=== PATIENT | female | born 1980 | race African-American/Black ===

== ENCOUNTER 2016-12-19 17:22 | Emergency (ER) | payer OTHER ==
[~2016-12-19 17:22] MED LIST: AMIT24CA5 PO; SERT25TA85 PO; TRAZ50TA4 PO
[2016-12-19] MEDS ORDERED: GASTROGRAFIN SOLUTION 30ML (Q9963) As Ordered ONE (18:26)
[2016-12-19] MEDS ORDERED: ONDANSETRON 4MG/2ML VIAL (J2405) As Ordered ONE ×2 (18:36→21:09)
[2016-12-19] MEDS ORDERED: MORPHINE 4 MG/ML 1ML SYRINGE As Ordered ONE ×2 (18:36→19:54)
[2016-12-19 18:58] LABS: BASO % 0.5 % (0.0-1.0); EOS # 0.1 K/mm3 (0.0-0.50); EOS % 1.3 % (0.0-3.0); LARGE UNSTAINED CELL # 0.1 K/mm3 (0.0-0.4); LARGE UNSTAINED CELL % 1.7 % (0.0-4.0); LYMPH # 2.9 K/mm3 (1.5-4.5); LYMPH % 40.6 % (24.0-44.0); MEAN CORPUSCULAR HGB CONC 30.9 g/dl (32.0-36.5); MEAN CORPUSCULAR VOLUME 84.1 fl (80.0-96.0); MONO # 0.3 K/mm3 (0.0-0.8); MONO % 4.4 % (0.0-5.0); NEUTROPHILS # 3.7 K/mm3 (1.8-7.7); NEUTROPHILS % 51.5 % (36.0-66.0); PLATELET COUNT, AUTOMATED 253 k/mm3 (150-450); RED CELL DISTRIBUTION WIDTH 13.9 % (11.5-14.5); WHITE BLOOD COUNT 7.2 K/mm3 (4.0-10.0)
[2016-12-19 19:02] LABS: CALCIUM OXALATE CRYSTALS LARGE
[2016-12-19] MEDS ORDERED: ISOVUE-370 76% 100ML VIAL (Q9967) As Ordered ONE ×2 (19:04→21:07)
[2016-12-19 19:58] LABS: ALBUMIN 3.3 GM/DL (3.2-5.2); ALBUMIN/GLOBULIN RATIO 0.72 (1.00-1.93); ALKALINE PHOSPHATASE 87 U/L (45-117); ALT/SGPT 30 U/L (12-78); ANION GAP 10 MEQ/L (8-16); AST/SGOT 44 U/L (15-37); BILIRUBIN,DIRECT 0.2 MG/DL (0.0-0.2); BILIRUBIN,TOTAL 0.4 MG/DL (0.2-1.0); BLOOD UREA NITROGEN 9 MG/DL (7-18); CALCIUM LEVEL 8.7 MG/DL (8.5-10.1); CARBON DIOXIDE LEVEL 24 MEQ/L (21-32); CHLORIDE LEVEL 107 MEQ/L (98-107); CREATININE FOR GFR 0.58 MG/DL (0.55-1.02); GLOMERULAR FILTRATION RATE > 60.0 (>60); GLUCOSE, FASTING 77 MG/DL (70-105); POTASSIUM SERUM 3.8 MEQ/L (3.5-5.1); SODIUM LEVEL 141 MEQ/L (136-145); TOTAL PROTEIN 7.9 GM/DL (6.4-8.2)
--- NOTE | 2016-12-19 22:40 | REPUSA ---
CLINICAL HISTORY: Status post gastric bypass an abscess, presenting with abdominal pain TECHNIQUE : A CT of the abdomen and pelvis was performed following the administration of oral and int ravenous contrast from the level of the heart to the proximal femoral diaphyses. Multiplanar reformat s were also obtained in coronal and sagittal projections. COMPARISON: CT abdomen pelvis 10/03/2014 FINDINGS: LOWER CHEST: The lung bases demonstrate trace bilateral effusions with lower lobe atelectasis and lef t lung base more atelectasis/consolidation. Heart is normal in size. No pleural or pericardial effusi on is seen. LIVER: The liver is normal in size and contour. No hepatic lesion is seen. The portal and hepatic vei ns are patent. BILIARY SYSTEM: No intrahepatic biliary ductal dilatation is seen. The common duct is normal in calib er. The gallbladder is unremarkable with no focal or diffuse wall thickening seen. No pericholecystic fluid is seen. No calcified biliary calculi are identified. PANCREAS: The pancreas is normal in size, contour and density. No solid or cystic pancreatic mass is seen. No pancreatic duct dilatation is seen. SPLEEN: The spleen is normal in size and without focal lesion. ADRENALS: The adrenal glands are unremarkable. KIDNEYS/URETERS: The kidneys are normal in size and enhance normally. No calcified renal or ureteral calculi are seen. No suspicious renal mass or hydronephrosis is seen. The ureters are not dilated. URINARY BLADDER: The urinary bladder is unremarkable without calcified stone, wall thickening or dive rticula seen. UTERUS/ADNEXA: Uterus is absent. Bilateral adnexa. Within normal limits with corpus luteal cyst on le ft AORTA AND ILIAC ARTERIES: No aneurysmal dilatation of the aorta or iliac arteries is seen. INFERIOR VENA CAVA AND PELVIC VEINS: No deep venous thrombosis is seen. LYMPH NODES: No enlarged adenopathy. GASTROINTESTINAL: Status post gastric bypass otherwise residual stomach, duodenum, appendix on axial series 201, images 95-103, and remaining bowel normal in caliber. PERITONEUM/RETROPERITONEUM: Trace perisplenic and perihepatic ascites. No extraluminal air. A 3.9 x 2 .6 cm left lower quadrant mixed solid and cystic lobulated structure has slightly grown from 2.8 x 2. 4. ABDOMINAL/PELVIC WALL: No hernia is identified. OSSEOUS STRUCTURES/SOFT TISSUES: No suspicious osseous lesion, acute fracture, or soft tissue abnorma lity. IMPRESSION : 1. Trace ascites noted which is likely postoperative otherwise no acute intra-abdominal pelvic inflam matory process is identified. Specifically no definitive evidence of abscess. 2. A 3.9 x 2.6 cm left lower quadrant lobulated mixed solid and cystic structure has slightly increas ed from 2.8 x 2.4 cm. This may represent a remnant ovary however if there has been a definitive bilat eral salpingo-oophorectomy for a clinical history of cancer, then findings would raise suspicion for recurrent tumor. Correlation with surgical history is initially recommended.
--- NOTE | 2016-12-19 23:16 | EDDOCDS ---
Physician Documentation [facility] Name: Luigi Lund Age: 36 yrs Sex: Female : 1980 Arrival Date: 12/19/2016 Time: 17:22 Bed I6 Private MD: Reid Magana P. Disposition: 12/19/16 22:51 Discharged to Home/Self Care. Impression: Generalized abdominal pain. - Condition is Stable. - Discharge Instructions: Abdominal Pain, Adult, Nausea and Vomiting. - Prescriptions for Reglan 10 mg Oral Tablet - take 1 tablet by ORAL route every 6 hours take 30 minutes before meals and at bedtime; 20 tablet. Percocet 5- 325 mg Oral Tablet - take 1 tablet by ORAL route every 6 hours As needed MDD: 4 tabs; 20 tablet. - Medication Reconciliation, Local Pharmacy Hours form. - Follow up: Reid Magana; When: Call to arrange an appointment; Reason: Recheck today's complaints, Continuance of care. - Problem is new. - Symptoms are unchanged. Historical: - Allergies: Latex; - Home Meds: 1. Sertraline 100 mg daily 2. Omeprazole Unknown Oral once daily - PMHx: Anxiety; Migraine Headaches; - PSHx: Multiple laparoscopies for endometriosis; Hysterectomy; ; Gastric Bypass; - Social history: Smoking status: Patient states former smoker of tobacco. No barriers to communication noted, The patient speaks fluent [place], Speaks appropriately for age. - Family history: Not pertinent. - : The pt / caregiver states he / she is not on anticoagulants. Home medication list is obtained from the patient. - Exposure Risk Screening:: None identified. 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 6 in. (167.64 cm) (R); Pain 7/10; 23:01 BP 110 / 69; Pulse 77; Resp 18; Temp 97.6; Pulse Ox 97% ; Pain 7/10; ajs 17:24 Body Mass Index 35.51 (99.79 kg, 167.64 cm) gr2 MDM: 18:11 NS 0.9% 1000 ml IV at bolus once ordered. mo1 18:11 Ondansetron 4 mg IVP once ordered. mo1 18:11 IV Saline Lock ordered. mo1 18:11 Undress patient appropriately for examination ordered. mo1 18:11 morphine 4 mg IVP once ordered. mo1 18:12 Basic Metabolic Profile Ordered. EDMS 18:12 CBC with Diff Ordered. EDMS 18:12 Lipase Ordered. EDMS 18:12 Liver Profile Ordered. EDMS 18:12 Urinalysis Ordered. EDMS 18:12 Urine Culture Ordered. EDMS 18:12 CT ABD & PELVIS: IV and Oral Contrast Ordered. EDMS 18:12 NOTHING BY MOUTH+DIET ordered. EDMS 18:17 -Blood Culture (Adults Only), peripheral from different site, or from device/port/PICC mo1 etc. if present ordered. 18:18 -Blood Culture Ordered. EDMS 18:44 -Blood Culture (Adults Only), peripheral from different site, or from device/port/PICC jmk etc. if present complete. 18:48 BLOOD CULTURES Ordered. EDMS 18:54 Diatrizoate Meglumine & Sodium Liquid 10 ml PO once; mix in 290cc of water ordered. kc3 18:54 Diatrizoate Meglumine & Sodium Liquid 10 ml PO once; mix in 290cc of water - give at kc3 1900 ordered. 18:56 Financial registration complete. zo 19:01 [facility] Payment Agreement was scanned into [employer] and attached to record. zo 19:13 Urinalysis Reviewed. mo1 19:14 CBC with Diff Reviewed. mo1 19:50 morphine 4 mg IVP once ordered. mo1 21:07 Ondansetron 4 mg IVP once ordered. mo1 Administered Medications: 18:44 Drug: morphine 4 mg Route: IVP; Site: right antecubital; jmk 18:45 Drug: NS 0.9% 1000 ml Route: IV; Rate: bolus; Site: right antecubital; jmk 18:46 Drug: Ondansetron 4 mg Route: IVP; Site: right antecubital; jmk 18:54 Drug: Diatrizoate Meglumine & Sodium 10 ml [diatrizoate meglumine and diat.sodium 66 kc3 %-10 % oral solution (10 mL)] Route: PO; 19:58 Not Given (provider discretion; pt states that she cannot drink any more due to recent js15 gastric bypass surgery): Diatrizoate Meglumine & Sodium Liquid 10 ml PO once; mix in 290cc of water - give at 1900 19:58 Drug: morphine 4 mg [morphine 4 mg/mL intravenous cartridge (1 mL)] Route: IVP; Site: js15 right antecubital; 21:11 Drug: Ondansetron 4 mg [ondansetron HCl 2 mg/mL intravenous solution (2 mL)] Route: js15 IVP; Site: right antecubital; Signatures: Dispatcher [employer] EDFransisco Boateng,RN RN ellenk Kelsi ArnoldRN RN jo3 Elena Avila Michael, PA PA mo1 Mary Mcleod RN RN js15 Gladys Malik,RN RN kc3 The chart was reviewed and I authenticate all verbal orders and agree with the evaluation and treatment provided.Attachments: 19:01 [facility] [place] [place] Payment Agreement zo MTDD
--- NOTE | 2016-12-19 23:16 | EDDOCDS ---
Nurse's Notes [facility] Name: Luigi Lund Age: 36 yrs Sex: Female : 1980 Arrival Date: 12/19/2016 Time: 17:22 Bed I6 Private MD: Reid Magana P. Diagnosis: Generalized abdominal pain Presentation: 12/19 17:34 Presenting complaint: Patient states: Had Gastric Bypass 10/[address] Arreola in [place]. jo3 Had multiple complications after surgery including a large hematoma and abscesses. Was in the hospital until 11/23/16 and had drains removed last week. Started vomiting Saturday and is unable to keep anything down. Home Health nurse called dr Arreola's office and they wanted pt to be seen here. Adult Sepsis Screening: The patient does not have new or worsening altered mentation. Patient's respiratory rate is less than 22. Systolic blood pressure is greater than 100. Patient has a qSOFA score of 0- Negative Sepsis Screen. Suicide/Homicide risk assessment- the patient denies having any suicidal and/or homicidal ideations and does not present with any other emotional, behavioral or mental health complaints. Status: The patient is a dependent. Transition of care: patient was not received from another setting of care. 17:34 Acuity: TANA Level 3 jo3 17:34 Method Of Arrival: Walkin/Carried/Asstd jo3 Triage Assessment: 17:41 General: Appears in no apparent distress, comfortable, Behavior is appropriate for age, jo3 cooperative. Pain: Pain currently is 8 out of 10 on a pain scale. HIV screening NA for this visit Offered previously. Neurological: Level of Consciousness is awake, alert, Oriented to person, place, time. Respiratory: Airway is patent Respiratory effort is even, unlabored. Derm: No deficits noted. Skin is pink, warm & dry. 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 Sertraline 100 mg daily 2. Omeprazole Unknown Oral once daily - PMHx: Anxiety; Migraine Headaches; - PSHx: Multiple laparoscopies for endometriosis; Hysterectomy; ; Gastric Bypass; - Social history: Smoking status: Patient states former smoker of tobacco. No barriers to communication noted, The patient speaks fluent Luxembourgish, Speaks appropriately for age. - Family history: Not pertinent. - : The pt / caregiver states he / she is not on anticoagulants. Home medication list is obtained from the patient. - Exposure Risk Screening:: None identified. Screenin:46 Screening information is obtained from the patient. Fall risk: No risks identified. jmk Assistance ADL's: requires no assistance with activities of daily living. Abuse/DV Screen: The patient / caregiver reports he/she is: not in a situation that causes fear, pain or injury. Nutritional screening: No deficits noted. home support is adequate. 23:14 Advance Directives: There is no active DNR order. js15 Assessment: 18:46 General: Appears skin warm and dry color satisfactory Moist pink oral mucosa. ambulates jmk slowly and cautiously supporting lower abdomen. Obese abdomen that is non distended with bowel sounds present x 4. Diffusely tender with palpation. Multiple old surgical incisions. GI: Bowel sounds present X 4 quads. Abd is soft X 4 quads Abd is tender to palpation X 4 quads. 20:06 General: Appears in no apparent distress, Behavior is appropriate for age, cooperative, js15 watching TV with family at bedside. Neurological: Level of Consciousness is awake, alert, obeys commands, Oriented to person, place, time. Respiratory: Airway is patent Respiratory effort is even, unlabored, Respiratory pattern is regular, symmetrical. GI:. Derm: Skin is pink, warm & dry. 21:23 Reassessment: Patient appears in no apparent distress at this time. Pt returned from js15 CT; reports nausea; provider notified and no new orders given; respirations even and unlabored; skin pink, warm, dry; will continue to monitor. 23:00 Reassessment: Patient appears in no apparent distress at this time. Reassessment: Pt js15 resting on stretcher with family at bedside; respirations even and unlabored; skin pink, warm, dry. GI: Abdomen is obese, Reports nausea. Vital Signs: 17:24 BP 134 / 83; Pulse 108; Resp 18 S; Temp 98.0(O); Pulse Ox 98% on R/A; Weight 99.79 kg gr2 (R); Height 5 ft. 6 in. (167.64 cm) (R); Pain 7/10; 23:01 BP 110 / 69; Pulse 77; Resp 18; Temp 97.6; Pulse Ox 97% ; Pain 7/10; ajs 17:24 Body Mass Index 35.51 (99.79 kg, 167.64 cm) gr2 Vitals: 17:24 Log In Time: December 19, 2016 at 17:24. gr2 ED Course: 17:24 Patient visited by Cathy Baker. gr2 17:24 Reid Magana is Private Physician. gr2 17:24 Patient moved to Waiting gr2 17:25 Patient visited by Cathy Baker. gr2 17:25 Patient moved to Pre RCE gr2 17:39 Triage Initiated jo3 17:42 Patient visited by Kelsi Arnold,BRENNON. jo3 17:43 Patient moved to Triage 1 jo3 17:58 Haim Armando PA is PHCP. mo1 17:59 Yaya Flores MD is Attending Physician. mo1 18:10 Patient visited by Haim Armando PA. mo1 18:10 Patient moved to I6 / ck1 18:27 Patient visited by Christel Dinero PCA. bnb 18:44 -Blood Culture Sent. jmk 18:45 Basic Metabolic Profile Sent. jmk 18:45 CBC with Diff Sent. jmk 18:45 Lipase Sent. jmk 18:45 Liver Profile Sent. jmk 18:46 The patient / caregiver is instructed regarding the plan of care and ED course. jmk 18:46 Inserted saline lock: 20 gauge in right antecubital area. jmk 18:49 BLOOD CULTURES Sent. bnb 19:01 [facility] Payment Agreement was scanned into [employer] and attached to record. zo 19:57 Patient visited by Mary Mcleod RN. js15 21:07 Patient visited by Mary Mcleod,BRENNON. js15 22:51 Reid Magana is Referral Physician. mo1 23:14 No procedures done that require assistance. js15 Administered Medications: 18:44 Drug: morphine 4 mg Route: IVP; Site: right antecubital; jmk 18:45 Drug: NS 0.9% 1000 ml Route: IV; Rate: bolus; Site: right antecubital; jmk 18:46 Drug: Ondansetron 4 mg Route: IVP; Site: right antecubital; jmk 18:54 Drug: Diatrizoate Meglumine & Sodium 10 ml [diatrizoate meglumine and diat.sodium 66 kc3 %-10 % oral solution (10 mL)] Route: PO; 19:58 Not Given (provider discretion; pt states that she cannot drink any more due to recent js15 gastric bypass surgery): Diatrizoate Meglumine & Sodium Liquid 10 ml PO once; mix in 290cc of water - give at 1900 19:58 Drug: morphine 4 mg [morphine 4 mg/mL intravenous cartridge (1 mL)] Route: IVP; Site: js15 right antecubital; 21:11 Drug: Ondansetron 4 mg [ondansetron HCl 2 mg/mL intravenous solution (2 mL)] Route: js15 IVP; Site: right antecubital; Order Results: Lab Order: Basic Metabolic Profile; SPEC'M 12/19/16 19:27 Test: GLUCOSE, FASTING; Value: 77; Range: 70-105; Units: MG/DL; Status: F Test: BLOOD UREA NITROGEN; Value: 9; Range: 7-18; Units: MG/DL; Status: F Test: CREATININE FOR GFR; Value: 0.58; Range: 0.55-1.02; Units: MG/DL; Status: F Test: GLOMERULAR FILTRATION RATE; Value: > 60.0; Range: >60; Status: F Test: SODIUM LEVEL; Value: 141; Range: 136-145; Units: MEQ/L; Status: F Test: POTASSIUM SERUM; Value: 3.8; Range: 3.5-5.1; Units: MEQ/L; Status: F Test: CHLORIDE LEVEL; Value: 107; Range: 98-107; Units: MEQ/L; Status: F Test: CARBON DIOXIDE LEVEL; Value: 24; Range: 21-32; Units: MEQ/L; Status: F Test: ANION GAP; Value: 10; Range: 8-16; Units: MEQ/L; Status: F Test: CALCIUM LEVEL; Value: 8.7; Range: 8.5-10.1; Units: MG/DL; Status: F Test Note: ; Units are mL/min/1.73 m2 Chronic Kidney Disease Staging per NKF: Stage I & II GFR >=60 Normal to Mildly Decreased Stage III GFR 30-59 Moderately Decreased Stage IV GFR 15-29 Severely Decreased Stage V GFR <15 Very Little GFR Left ESRD GFR <15 on B[address] BRANDER Lab Order: CBC with Diff; SPEC'M 12/19/16 18:27 Test: WHITE BLOOD COUNT; Value: 7.2; Range: 4.0-10.0; Units: K/mm3; Status: F Test: RED BLOOD COUNT; Value: 5.02; Range: 4.00-5.40; Units: M/mm3; Status: F Test: HEMOGLOBIN; Value: 13.0; Range: 12.0-16.0; Units: g/dl; Status: F Test: HEMATOCRIT; Value: 42.2; Range: 36.0-47.0; Units: %; Status: F Test: MEAN CORPUSCULAR VOLUME; Value: 84.1; Range: 80.0-96.0; Units: fl; Status: F Test: MEAN CORPUSCULAR HEMOGLOBIN; Value: 26.0; Range: 27.0-33.0; Abnormal: Below low normal; Units: pg; Status: F Test: MEAN CORPUSCULAR HGB CONC; Value: 30.9; Range: 32.0-36.5; Abnormal: Below low normal; Units: g/dl; Status: F Test: RED CELL DISTRIBUTION WIDTH; Value: 13.9; Range: 11.5-14.5; Units: %; Status: F Test: PLATELET COUNT, AUTOMATED; Value: 253; Range: 150-450; Units: k/mm3; Status: F Test: NEUTROPHILS %; Value: 51.5; Range: 36.0-66.0; Units: %; Status: F Test: LYMPH %; Value: 40.6; Range: 24.0-44.0; Units: %; Status: F Test: MONO %; Value: 4.4; Range: 0.0-5.0; Units: %; Status: F Test: EOS %; Value: 1.3; Range: 0.0-3.0; Units: %; Status: F Test: BASO %; Value: 0.5; Range: 0.0-1.0; Units: %; Status: F Test: LARGE UNSTAINED CELL %; Value: 1.7; Range: 0.0-4.0; Units: %; Status: F Test: NEUTROPHILS #; Value: 3.7; Range: 1.8-7.7; Units: K/mm3; Status: F Test: LYMPH #; Value: 2.9; Range: 1.5-4.5; Units: K/mm3; Status: F Test: MONO #; Value: 0.3; Range: 0.0-0.8; Units: K/mm3; Status: F Test: EOS #; Value: 0.1; Range: 0.0-0.50; Units: K/mm3; Status: F Test: BASO #; Value: 0.0; Range: 0.0-0.2; Units: K/mm3; Status: F Test: LARGE UNSTAINED CELL #; Value: 0.1; Range: 0.0-0.4; Units: K/mm3; Status: F Lab Order: Lipase; [facility] 12/19/16 19:27 Test: LIPASE; Value: 310; Range: 73-393; Units: U/L; Status: F Lab Order: Liver Profile; [facility] 12/19/16 19:27 Test: AST/SGOT; Value: 44; Range: 15-37; Abnormal: Above high normal; Units: U/L; Status: F Test: ALT/SGPT; Value: 30; Range: 12-78; Units: U/L; Status: F Test: ALKALINE PHOSPHATASE; Value: 87; Range: 45-117; Units: U/L; Status: F Test: BILIRUBIN,TOTAL; Value: 0.4; Range: 0.2-1.0; Units: MG/DL; Status: F Test: BILIRUBIN,DIRECT; Value: 0.2; Range: 0.0-0.2; Units: MG/DL; Status: F Test: TOTAL PROTEIN; Value: 7.9; Range: 6.4-8.2; Units: GM/DL; Status: F Test: ALBUMIN; Value: 3.3; Range: 3.2-5.2; Units: GM/DL; Status: F Test: ALBUMIN/GLOBULIN RATIO; Value: 0.72; Range: 1.00-1.93; Abnormal: Below low normal; Status: F Lab Order: Urinalysis; [facility] 12/19/16 18:27 Test: APPEARANCE, URINE; Value: CLOUDY; Range: CLEAR; Abnormal: Above high normal; Status: F Test: COLOR, URINE; Value: SKY; Range: YELLOW; Status: F Test: PH,URINE; Value: 7.0; Range: 5.0-9.0; Units: UNITS; Status: F Test: SPECIFIC GRAVITY URINE AUTO; Value: 1.025; Range: 1.002-1.035; Status: F Test: PROTEIN, URINE AUTO; Value: 1+; Range: NEGATIVE; Abnormal: Above high normal; Units: mg/dL; Status: F Test: GLUCOSE, URINE (UA) AUTO; Value: NEGATIVE; Range: NEGATIVE; Units: mg/dL; Status: F Test: KETONE, URINE AUTO; Value: 1+; Range: NEGATIVE; Abnormal: Above high normal; Units: mg/dL; Status: F Test: UROBILINOGEN, URINE AUTO; Value: 2.0; Range: 0.0-2.0; Abnormal: Above high normal; Units: mg/dL; Status: F Test: BILIRUBIN, URINE AUTO; Value: NEGATIVE; Range: NEGATIVE; Status: F Test: NITRITE, URINE AUTO; Value: NEGATIVE; Range: NEGATIVE; Status: F Test: LEUKOCYTE ESTERASE, URINE AUTO; Value: 3+; Range: NEGATIVE; Abnormal: Above high normal; Status: F Test: BLOOD, URINE BLOOD; Value: NEGATIVE; Range: NEGATIVE; Status: F Test: WBC, URINE AUTO; Value: 8; Range: 0-3; Abnormal: Above high normal; Units: /HPF; Status: F Test: RBC, URINE AUTO; Value: 7; Range: 0-3; Abnormal: Above high normal; Units: /HPF; Status: F Test: BACTERIA, URINE AUTO; Value: NEGATIVE; Range: NEGATIVE; Status: F Test: SQUAMOUS EPITHELIAL CELL UR AU; Value: 37; Range: 0-6; Units: /HPF; Status: F Test: MUCUS, URINE; Value: SMALL; Range: NEGATIVE; Status: F Test: HYALINE CAST, URINE AUTO; Value: 0; Range: 0-1; Units: /LPF; Status: F Test: AMORPHOUS SEDIMENT; Value: SMALL; Range: NEGATIVE; Abnormal: Above high normal; Status: F Test: CALCIUM OXALATE CRYSTALS; Value: LARGE; Range: NONE; Status: F Outcome: 22:51 Discharge ordered by Provider. mo1 23:14 Discharge Assessment: Patient awake, alert and oriented x 3. No cognitive and/or js15 functional deficits noted. Patient verbalized understanding of disposition instructions. patient administered narcotics - yes. Pt provided with safe discharge. The following High Risk Discharge criteria are identified: None. Discharged to home ambulatory. Condition: unchanged. Discharge instructions given to patient, Instructed on discharge instructions, follow up and referral plans. medication usage, no driving heavy equipment, Demonstrated understanding of instructions, medications, Pt was receptive of discharge instructions/ teaching. Prescriptions given X 2. CT Study completed. Property sent home with patient. 23:15 Patient left the ED. js15 Signatures: Fransisco Weir,RN RN ellenk Lynda Hyman,RN RN ck1 Kelsi Arnold,RN RN jo3 Elena Avila Amanda ajs Raymond, [place] gr2 Haim Armando PA PA mo1 Mary Mcleod,RN RN js15 Gladys Malik,RN RN kc3 Christel Dinero, VP SOFTWARE SUPPORT VP SOFTWARE SUPPORT bnb MTDD
--- NOTE | 2016-12-22 00:16 | EDDOCDS ---
Nurse's Notes [facility] Name: Luigi Lund Age: 36 yrs Sex: Female : 1980 Arrival Date: 12/19/2016 Time: 17:22 Bed I6 Private MD: Reid Magana P. Diagnosis: Generalized abdominal pain Presentation: 12/19 17:34 Presenting complaint: Patient states: Had Gastric Bypass 10/[address] Arreola in [place]. jo3 Had multiple complications after surgery including a large hematoma and abscesses. Was in the hospital until 11/23/16 and had drains removed last week. Started vomiting Saturday and is unable to keep anything down. Home Health nurse called dr Arreola's office and they wanted pt to be seen here. Adult Sepsis Screening: The patient does not have new or worsening altered mentation. Patient's respiratory rate is less than 22. Systolic blood pressure is greater than 100. Patient has a qSOFA score of 0- Negative Sepsis Screen. Suicide/Homicide risk assessment- the patient denies having any suicidal and/or homicidal ideations and does not present with any other emotional, behavioral or mental health complaints. Status: The patient is a dependent. Transition of care: patient was not received from another setting of care. 17:34 Acuity: TANA Level 3 jo3 17:34 Method Of Arrival: Walkin/Carried/Asstd jo3 Triage Assessment: 17:41 General: Appears in no apparent distress, comfortable, Behavior is appropriate for age, jo3 cooperative. Pain: Pain currently is 8 out of 10 on a pain scale. HIV screening NA for this visit Offered previously. Neurological: Level of Consciousness is awake, alert, Oriented to person, place, time. Respiratory: Airway is patent Respiratory effort is even, unlabored. Derm: No deficits noted. Skin is pink, warm & dry. MOHEL: 17:41 LMP N/A - Hysterectomy jo3 Historical: - Allergies: Latex; - Home Meds: 1. Sertraline 100 mg daily 2. Omeprazole Unknown Oral once daily - PMHx: Anxiety; Migraine Headaches; - PSHx: Multiple laparoscopies for endometriosis; Hysterectomy; ; Gastric Bypass; - Social history: Smoking status: Patient states former smoker of tobacco. No barriers to communication noted, The patient speaks fluent German, Speaks appropriately for age. - Family history: Not pertinent. - : The pt / caregiver states he / she is not on anticoagulants. Home medication list is obtained from the patient. - Exposure Risk Screening:: None identified. Screenin:46 Screening information is obtained from the patient. Fall risk: No risks identified. jmk Assistance ADL's: requires no assistance with activities of daily living. Abuse/DV Screen: The patient / caregiver reports he/she is: not in a situation that causes fear, pain or injury. Nutritional screening: No deficits noted. home support is adequate. 23:14 Advance Directives: There is no active DNR order. js15 Assessment: 18:46 General: Appears skin warm and dry color satisfactory Moist pink oral mucosa. ambulates jmk slowly and cautiously supporting lower abdomen. Obese abdomen that is non distended with bowel sounds present x 4. Diffusely tender with palpation. Multiple old surgical incisions. GI: Bowel sounds present X 4 quads. Abd is soft X 4 quads Abd is tender to palpation X 4 quads. 20:06 General: Appears in no apparent distress, Behavior is appropriate for age, cooperative, js15 watching TV with family at bedside. Neurological: Level of Consciousness is awake, alert, obeys commands, Oriented to person, place, time. Respiratory: Airway is patent Respiratory effort is even, unlabored, Respiratory pattern is regular, symmetrical. GI:. Derm: Skin is pink, warm & dry. 21:23 Reassessment: Patient appears in no apparent distress at this time. Pt returned from js15 CT; reports nausea; provider notified and no new orders given; respirations even and unlabored; skin pink, warm, dry; will continue to monitor. 23:00 Reassessment: Patient appears in no apparent distress at this time. Reassessment: Pt js15 resting on stretcher with family at bedside; respirations even and unlabored; skin pink, warm, dry. GI: Abdomen is obese, Reports nausea. Vital Signs: 17:24 BP 134 / 83; Pulse 108; Resp 18 S; Temp 98.0(O); Pulse Ox 98% on R/A; Weight 99.79 kg gr2 (R); Height 5 ft. 6 in. (167.64 cm) (R); Pain 7/10; 23:01 BP 110 / 69; Pulse 77; Resp 18; Temp 97.6; Pulse Ox 97% ; Pain 7/10; ajs 17:24 Body Mass Index 35.51 (99.79 kg, 167.64 cm) gr2 Vitals: 17:24 Log In Time: December 19, 2016 at 17:24. gr2 ED Course: 17:24 Patient visited by Cathy Baker. gr2 17:24 Reid Magana is Private Physician. gr2 17:24 Patient moved to Waiting gr2 17:25 Patient visited by Cathy Baker. gr2 17:25 Patient moved to Pre RCE gr2 17:39 Triage Initiated jo3 17:42 Patient visited by Kelsi Arnold,BRENNON. jo3 17:43 Patient moved to Triage 1 jo3 17:58 Haim Armando PA is PHCP. mo1 17:59 Yaya Flores MD is Attending Physician. mo1 18:10 Patient visited by aHim Armando PA. mo1 18:10 Patient moved to I6 / ck1 18:27 Patient visited by Christel Dinero PCA. bnb 18:44 -Blood Culture Sent. jmk 18:45 Basic Metabolic Profile Sent. jmk 18:45 CBC with Diff Sent. jmk 18:45 Lipase Sent. jmk 18:45 Liver Profile Sent. jmk 18:46 The patient / caregiver is instructed regarding the plan of care and ED course. jmk 18:46 Inserted saline lock: 20 gauge in right antecubital area. jmk 18:49 BLOOD CULTURES Sent. bnb 19:01 [facility] [place] Payment Agreement was scanned into Redapt and attached to record. zo 19:57 Patient visited by Mary Mcleod,BRENNON. js15 21:07 Patient visited by Mary Mcleod,BRENNON. js15 22:51 Reid Magana is Referral Physician. mo1 23:14 No procedures done that require assistance. js15 23:47 CT ABD & PELVIS: IV and Oral Contrast Returned. EDMS 12/20 12:21 T-Sheet-- Draft Copy was scanned into Redapt and attached to record. gb 12:21 Radiology Report was scanned into Redapt and attached to record. gb Administered Medications: 12/19 18:44 Drug: morphine 4 mg Route: IVP; Site: right antecubital; jmk 18:45 Drug: NS 0.9% 1000 ml Route: IV; Rate: bolus; Site: right antecubital; jmk 18:46 Drug: Ondansetron 4 mg Route: IVP; Site: right antecubital; jmk 18:54 Drug: Diatrizoate Meglumine & Sodium 10 ml [diatrizoate meglumine and diat.sodium 66 kc3 %-10 % oral solution (10 mL)] Route: PO; 19:58 Not Given (provider discretion; pt states that she cannot drink any more due to recent js15 gastric bypass surgery): Diatrizoate Meglumine & Sodium Liquid 10 ml PO once; mix in 290cc of water - give at 1900 19:58 Drug: morphine 4 mg [morphine 4 mg/mL intravenous cartridge (1 mL)] Route: IVP; Site: js15 right antecubital; 21:11 Drug: Ondansetron 4 mg [ondansetron HCl 2 mg/mL intravenous solution (2 mL)] Route: js15 IVP; Site: right antecubital; Order Results: Lab Order: Basic Metabolic Profile; [facility] 12/19/16 19:27 Test: GLUCOSE, FASTING; Value: 77; Range: 70-105; Units: MG/DL; Status: F Test: BLOOD UREA NITROGEN; Value: 9; Range: 7-18; Units: MG/DL; Status: F Test: CREATININE FOR GFR; Value: 0.58; Range: 0.55-1.02; Units: MG/DL; Status: F Test: GLOMERULAR FILTRATION RATE; Value: > 60.0; Range: >60; Status: F Test: SODIUM LEVEL; Value: 141; Range: 136-145; Units: MEQ/L; Status: F Test: POTASSIUM SERUM; Value: 3.8; Range: 3.5-5.1; Units: MEQ/L; Status: F Test: CHLORIDE LEVEL; Value: 107; Range: 98-107; Units: MEQ/L; Status: F Test: CARBON DIOXIDE LEVEL; Value: 24; Range: 21-32; Units: MEQ/L; Status: F Test: ANION GAP; Value: 10; Range: 8-16; Units: MEQ/L; Status: F Test: CALCIUM LEVEL; Value: 8.7; Range: 8.5-10.1; Units: MG/DL; Status: F Test Note: ; Units are mL/min/1.73 m2 Chronic Kidney Disease Staging per NKF: Stage I & II GFR >=60 Normal to Mildly Decreased Stage III GFR 30-59 Moderately Decreased Stage IV GFR 15-29 Severely Decreased Stage V GFR <15 Very Little GFR Left ESRD GFR <15 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 Lab Order: CBC with Diff; [facility] 12/19/16 18:27 Test: WHITE BLOOD COUNT; Value: 7.2; Range: 4.0-10.0; Units: K/mm3; Status: F Test: RED BLOOD COUNT; Value: 5.02; Range: 4.00-5.40; Units: M/mm3; Status: F Test: HEMOGLOBIN; Value: 13.0; Range: 12.0-16.0; Units: g/dl; Status: F Test: HEMATOCRIT; Value: 42.2; Range: 36.0-47.0; Units: %; Status: F Test: MEAN CORPUSCULAR VOLUME; Value: 84.1; Range: 80.0-96.0; Units: fl; Status: F Test: MEAN CORPUSCULAR HEMOGLOBIN; Value: 26.0; Range: 27.0-33.0; Abnormal: Below low normal; Units: pg; Status: F Test: MEAN CORPUSCULAR HGB CONC; Value: 30.9; Range: 32.0-36.5; Abnormal: Below low normal; Units: g/dl; Status: F Test: RED CELL DISTRIBUTION WIDTH; Value: 13.9; Range: 11.5-14.5; Units: %; Status: F Test: PLATELET COUNT, AUTOMATED; Value: 253; Range: 150-450; Units: k/mm3; Status: F Test: NEUTROPHILS %; Value: 51.5; Range: 36.0-66.0; Units: %; Status: F Test: LYMPH %; Value: 40.6; Range: 24.0-44.0; Units: %; Status: F Test: MONO %; Value: 4.4; Range: 0.0-5.0; Units: %; Status: F Test: EOS %; Value: 1.3; Range: 0.0-3.0; Units: %; Status: F Test: BASO %; Value: 0.5; Range: 0.0-1.0; Units: %; Status: F Test: LARGE UNSTAINED CELL %; Value: 1.7; Range: 0.0-4.0; Units: %; Status: F Test: NEUTROPHILS #; Value: 3.7; Range: 1.8-7.7; Units: K/mm3; Status: F Test: LYMPH #; Value: 2.9; Range: 1.5-4.5; Units: K/mm3; Status: F Test: MONO #; Value: 0.3; Range: 0.0-0.8; Units: K/mm3; Status: F Test: EOS #; Value: 0.1; Range: 0.0-0.50; Units: K/mm3; Status: F Test: BASO #; Value: 0.0; Range: 0.0-0.2; Units: K/mm3; Status: F Test: LARGE UNSTAINED CELL #; Value: 0.1; Range: 0.0-0.4; Units: K/mm3; Status: F Lab Order: Lipase; [facility] 12/19/16 19:27 Test: LIPASE; Value: 310; Range: 73-393; Units: U/L; Status: F Lab Order: Liver Profile; [facility] 12/19/16 19:27 Test: AST/SGOT; Value: 44; Range: 15-37; Abnormal: Above high normal; Units: U/L; Status: F Test: ALT/SGPT; Value: 30; Range: 12-78; Units: U/L; Status: F Test: ALKALINE PHOSPHATASE; Value: 87; Range: 45-117; Units: U/L; Status: F Test: BILIRUBIN,TOTAL; Value: 0.4; Range: 0.2-1.0; Units: MG/DL; Status: F Test: BILIRUBIN,DIRECT; Value: 0.2; Range: 0.0-0.2; Units: MG/DL; Status: F Test: TOTAL PROTEIN; Value: 7.9; Range: 6.4-8.2; Units: GM/DL; Status: F Test: ALBUMIN; Value: 3.3; Range: 3.2-5.2; Units: GM/DL; Status: F Test: ALBUMIN/GLOBULIN RATIO; Value: 0.72; Range: 1.00-1.93; Abnormal: Below low normal; Status: F Lab Order: Urinalysis; SPEC'M 12/19/16 18:27 Test: APPEARANCE, URINE; Value: CLOUDY; Range: CLEAR; Abnormal: Above high normal; Status: F Test: COLOR, URINE; Value: SKY; Range: YELLOW; Status: F Test: PH,URINE; Value: 7.0; Range: 5.0-9.0; Units: UNITS; Status: F Test: SPECIFIC GRAVITY URINE AUTO; Value: 1.025; Range: 1.002-1.035; Status: F Test: PROTEIN, URINE AUTO; Value: 1+; Range: NEGATIVE; Abnormal: Above high normal; Units: mg/dL; Status: F Test: GLUCOSE, URINE (UA) AUTO; Value: NEGATIVE; Range: NEGATIVE; Units: mg/dL; Status: F Test: KETONE, URINE AUTO; Value: 1+; Range: NEGATIVE; Abnormal: Above high normal; Units: mg/dL; Status: F Test: UROBILINOGEN, URINE AUTO; Value: 2.0; Range: 0.0-2.0; Abnormal: Above high normal; Units: mg/dL; Status: F Test: BILIRUBIN, URINE AUTO; Value: NEGATIVE; Range: NEGATIVE; Status: F Test: NITRITE, URINE AUTO; Value: NEGATIVE; Range: NEGATIVE; Status: F Test: LEUKOCYTE ESTERASE, URINE AUTO; Value: 3+; Range: NEGATIVE; Abnormal: Above high normal; Status: F Test: BLOOD, URINE BLOOD; Value: NEGATIVE; Range: NEGATIVE; Status: F Test: WBC, URINE AUTO; Value: 8; Range: 0-3; Abnormal: Above high normal; Units: /HPF; Status: F Test: RBC, URINE AUTO; Value: 7; Range: 0-3; Abnormal: Above high normal; Units: /HPF; Status: F Test: BACTERIA, URINE AUTO; Value: NEGATIVE; Range: NEGATIVE; Status: F Test: SQUAMOUS EPITHELIAL CELL UR AU; Value: 37; Range: 0-6; Units: /HPF; Status: F Test: MUCUS, URINE; Value: SMALL; Range: NEGATIVE; Status: F Test: HYALINE CAST, URINE AUTO; Value: 0; Range: 0-1; Units: /LPF; Status: F Test: AMORPHOUS SEDIMENT; Value: SMALL; Range: NEGATIVE; Abnormal: Above high normal; Status: F Test: CALCIUM OXALATE CRYSTALS; Value: LARGE; Range: NONE; Status: F Lab Order: Urine Culture; SPEC'M 12/19/16 18:27 Test: URINE CULTURE; Value: <EXTERNAL COMMENT eCWMed> FULL REPORT IN LAB NOTES (eCW and Medent).; Status: F Test: URINE CULTURE; Value: URINE CULTURE RESULT NO GROWTH; Status: F Lab Order: -Blood Culture; SPEC'M 12/19/16 18:27 Test: BLOOD CULTURE; Value: No growth after 24 hours . All specimens observed; Status: F Test: BLOOD CULTURE; Value: for 5 days. Results final at that time.; Status: F Test: BLOOD CULTURE; Value: No Growth after 48 hours. All Specimens observed; Status: F Test: BLOOD CULTURE; Value: for 7 days. Results final at that time.; Status: F Lab Order: BLOOD CULTURES; SPEC'M 12/19/16 18:30 Test: BLOOD CULTURE; Value: No growth after 24 hours . All specimens observed; Status: F Test: BLOOD CULTURE; Value: for 5 days. Results final at that time.; Status: F Test: BLOOD CULTURE; Value: No Growth after 48 hours. All Specimens observed; Status: F Test: BLOOD CULTURE; Value: for 7 days. Results final at that time.; Status: F Radiology Order: CT ABD & PELVIS: IV and Oral Contrast Test: CT ABD & PELVIS: IV and Oral Contrast REASON FOR EXAMINATION: UPPER ABD PAIN, RECENT GASTRIC BYPASS WITH ABSCESS; ; CLINICAL HISTORY: Status post gastric bypass an abscess, presenting with abdominal pain; TECHNIQUE : A CT of the abdomen and pelvis was performed following the administration of oral and int; ravenous contrast from the level of the heart to the proximal femoral diaphyses. Multiplanar reformat; s were also obtained in coronal and sagittal projections.; COMPARISON: CT abdomen pelvis 10/03/2014; FINDINGS:; LOWER CHEST: The lung bases demonstrate trace bilateral effusions with lower lobe atelectasis and lef; t lung base more atelectasis/consolidation. Heart is normal in size. No pleural or pericardial effusi; on is seen.; LIVER: The liver is normal in size and contour. No hepatic lesion is seen. The portal and hepatic vei; ns are patent.; BILIARY SYSTEM: No intrahepatic biliary ductal dilatation is seen. The common duct is normal in calib; er. The gallbladder is unremarkable with no focal or diffuse wall thickening seen. No pericholecystic; fluid is seen. No calcified biliary calculi are identified.; PANCREAS: The pancreas is normal in size, contour and density. No solid or cystic pancreatic mass is; seen. No pancreatic duct dilatation is seen.; SPLEEN: The spleen is normal in size and without focal lesion.; ADRENALS: The adrenal glands are unremarkable.; KIDNEYS/URETERS: The kidneys are normal in size and enhance normally. No calcified renal or ureteral; calculi are seen. No suspicious renal mass or hydronephrosis is seen. The ureters are not dilated.; URINARY BLADDER: The urinary bladder is unremarkable without calcified stone, wall thickening or dive; rticula seen.; UTERUS/ADNEXA: Uterus is absent. Bilateral adnexa. Within normal limits with corpus luteal cyst on le; ft; AORTA AND ILIAC ARTERIES: No aneurysmal dilatation of the aorta or iliac arteries is seen.; INFERIOR VENA CAVA AND PELVIC VEINS: No deep venous thrombosis is seen.; LYMPH NODES: No enlarged adenopathy.; GASTROINTESTINAL: Status post gastric bypass otherwise residual stomach, duodenum, appendix on axial; series 201, images 95-103, and remaining bowel normal in caliber.; PERITONEUM/RETROPERITONEUM: Trace perisplenic and perihepatic ascites. No extraluminal air. A 3.9 x 2; .6 cm left lower quadrant mixed solid and cystic lobulated structure has slightly grown from 2.8 x 2.; 4.; ABDOMINAL/PELVIC WALL: No hernia is identified.; OSSEOUS STRUCTURES/SOFT TISSUES: No suspicious osseous lesion, acute fracture, or soft tissue abnorma; lity.; IMPRESSION :; 1. Trace ascites noted which is likely postoperative otherwise no acute intra-abdominal pelvic inflam; matory process is identified. Specifically no definitive evidence of abscess.; 2. A 3.9 x 2.6 cm left lower quadrant lobulated mixed solid and cystic structure has slightly increas; ed from 2.8 x 2.4 cm. This may represent a remnant ovary however if there has been a definitive bilat; eral salpingo-oophorectomy for a clinical history of cancer, then findings would raise suspicion for; recurrent tumor. Correlation with surgical history is initially recommended.; ; Outcome: 22:51 Discharge ordered by Provider. mo1 23:14 Discharge Assessment: Patient awake, alert and oriented x 3. No cognitive and/or js15 functional deficits noted. Patient verbalized understanding of disposition instructions. patient administered narcotics - yes. Pt provided with safe discharge. The following High Risk Discharge criteria are identified: None. Discharged to home ambulatory. Condition: unchanged. Discharge instructions given to patient, Instructed on discharge instructions, follow up and referral plans. medication usage, no driving heavy equipment, Demonstrated understanding of instructions, medications, Pt was receptive of discharge instructions/ teaching. Prescriptions given X 2. CT Study completed. Property sent home with patient. 23:15 Patient left the ED. js15 Signatures: Dispatcher [employer] EDMS Fransisco Weir,RN RN Loly Botello, Reg Reg gb Boogie,Lynda,RN RN ck1 Kelsi Arnold,RN RN Elena Hoffman Amanda ajs Raymond, Gainslee gr2 Haim Armando PA PA mo1 Mary McleodRN RN js15 Gladys Malik,BRENNON RN sadia3 Christel Dinero, REESE PHOTOGRAPHIC PROCESS SCREEN MAKER bnb Chart Complete MTDD
--- NOTE | 2016-12-22 00:16 | EDDOCDS ---
Physician Documentation [facility] Name: Luigi Lund Age: 36 yrs Sex: Female : 1980 Arrival Date: 12/19/2016 Time: 17:22 Bed I6 Private MD: Reid Peters P. Disposition: 12/19/16 22:51 Discharged to Home/Self Care. Impression: Generalized abdominal pain. - Condition is Stable. - Discharge Instructions: Abdominal Pain, Adult, Nausea and Vomiting. - Prescriptions for Reglan 10 mg Oral Tablet - take 1 tablet by ORAL route every 6 hours take 30 minutes before meals and at bedtime; 20 tablet. Percocet 5- 325 mg Oral Tablet - take 1 tablet by ORAL route every 6 hours As needed MDD: 4 tabs; 20 tablet. - Medication Reconciliation, Local Pharmacy Hours form. - Follow up: Reid Peters; When: Call to arrange an appointment; Reason: Recheck today's complaints, Continuance of care. - Problem is new. - Symptoms are unchanged. Historical: - Allergies: Latex; - Home Meds: 1. Sertraline 100 mg daily 2. Omeprazole Unknown Oral once daily - PMHx: Anxiety; Migraine Headaches; - PSHx: Multiple laparoscopies for endometriosis; Hysterectomy; ; Gastric Bypass; - Social history: Smoking status: Patient states former smoker of tobacco. No barriers to communication noted, The patient speaks fluent Liberian, Speaks appropriately for age. - Family history: Not pertinent. - : The pt / caregiver states he / she is not on anticoagulants. Home medication list is obtained from the patient. - Exposure Risk Screening:: None identified. 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 6 in. (167.64 cm) (R); Pain 7/10; 23:01 BP 110 / 69; Pulse 77; Resp 18; Temp 97.6; Pulse Ox 97% ; Pain 7/10; ajs 17:24 Body Mass Index 35.51 (99.79 kg, 167.64 cm) gr2 MDM: 18:11 NS 0.9% 1000 ml IV at bolus once ordered. mo1 18:11 Ondansetron 4 mg IVP once ordered. mo1 18:11 IV Saline Lock ordered. mo1 18:11 Undress patient appropriately for examination ordered. mo1 18:11 morphine 4 mg IVP once ordered. mo1 18:12 Basic Metabolic Profile Ordered. EDMS 18:12 CBC with Diff Ordered. EDMS 18:12 Lipase Ordered. EDMS 18:12 Liver Profile Ordered. EDMS 18:12 Urinalysis Ordered. EDMS 18:12 Urine Culture Ordered. EDMS 18:12 CT ABD & PELVIS: IV and Oral Contrast Ordered. EDMS 18:12 NOTHING BY MOUTH+DIET ordered. EDMS 18:17 -Blood Culture (Adults Only), peripheral from different site, or from device/port/PICC mo1 etc. if present ordered. 18:18 -Blood Culture Ordered. EDMS 18:44 -Blood Culture (Adults Only), peripheral from different site, or from device/port/PICC jmk etc. if present complete. 18:48 BLOOD CULTURES Ordered. EDMS 18:54 Diatrizoate Meglumine & Sodium Liquid 10 ml PO once; mix in 290cc of water ordered. kc3 18:54 Diatrizoate Meglumine & Sodium Liquid 10 ml PO once; mix in 290cc of water - give at kc3 1900 ordered. 18:56 Financial registration complete. zo 19:01 [facility] Payment Agreement was scanned into [employer] and attached to record. zo 19:13 Urinalysis Reviewed. mo1 19:14 CBC with Diff Reviewed. mo1 19:50 morphine 4 mg IVP once ordered. mo1 21:07 Ondansetron 4 mg IVP once ordered. mo1 12/20 12:21 T-Sheet-- Draft Copy was scanned into [employer] and attached to record. gb 12:21 Radiology Report was scanned into [employer] and attached to record. gb 16:37 ED course: dr peters faxed formal report of ct abd/p for fu mlg. ml Administered Medications: 12/19 18:44 Drug: morphine 4 mg Route: IVP; Site: right antecubital; jmk 18:45 Drug: NS 0.9% 1000 ml Route: IV; Rate: bolus; Site: right antecubital; jmk 18:46 Drug: Ondansetron 4 mg Route: IVP; Site: right antecubital; k 18:54 Drug: Diatrizoate Meglumine & Sodium 10 ml [diatrizoate meglumine and diat.sodium 66 kc3 %-10 % oral solution (10 mL)] Route: PO; 19:58 Not Given (provider discretion; pt states that she cannot drink any more due to recent js15 gastric bypass surgery): Diatrizoate Meglumine & Sodium Liquid 10 ml PO once; mix in 290cc of water - give at 1900 19:58 Drug: morphine 4 mg [morphine 4 mg/mL intravenous cartridge (1 mL)] Route: IVP; Site: js15 right antecubital; 21:11 Drug: Ondansetron 4 mg [ondansetron HCl 2 mg/mL intravenous solution (2 mL)] Route: js15 IVP; Site: right antecubital; Signatures: Dispatcher [employer] EDMS Mabel Shepard MD MD ml Fransisco Weir,RN RN Loly Botello, Reg Reg gb Kelsi Arnold RN RN jo3 Elena Avila Michael, PA PA mo1 Mary McleodRN RN js15 Gladys Malik,RN RN kc3 The chart was reviewed and I authenticate all verbal orders and agree with the evaluation and treatment provided.Attachments: 19:01 [facility] Payment Agreement zo 12/20 12:21 T-Sheet-- Draft Copy gb Chart Complete MTDD
--- NOTE | 2016-12-22 00:16 | EDDOCDS ---
Physician Documentation [facility] Name: Luigi Lund Age: 36 yrs Sex: Female : 1980 Arrival Date: 12/19/2016 Time: 17:22 Bed I6 Private MD: Reid Peters P. Disposition: 12/19/16 22:51 Discharged to Home/Self Care. Impression: Generalized abdominal pain. - Condition is Stable. - Discharge Instructions: Abdominal Pain, Adult, Nausea and Vomiting. - Prescriptions for Reglan 10 mg Oral Tablet - take 1 tablet by ORAL route every 6 hours take 30 minutes before meals and at bedtime; 20 tablet. Percocet 5- 325 mg Oral Tablet - take 1 tablet by ORAL route every 6 hours As needed MDD: 4 tabs; 20 tablet. - Medication Reconciliation, Local Pharmacy Hours form. - Follow up: Reid Peters; When: Call to arrange an appointment; Reason: Recheck today's complaints, Continuance of care. - Problem is new. - Symptoms are unchanged. Historical: - Allergies: Latex; - Home Meds: 1. Sertraline 100 mg daily 2. Omeprazole Unknown Oral once daily - PMHx: Anxiety; Migraine Headaches; - PSHx: Multiple laparoscopies for endometriosis; Hysterectomy; ; Gastric Bypass; - Social history: Smoking status: Patient states former smoker of tobacco. No barriers to communication noted, The patient speaks fluent Canadian, Speaks appropriately for age. - Family history: Not pertinent. - : The pt / caregiver states he / she is not on anticoagulants. Home medication list is obtained from the patient. - Exposure Risk Screening:: None identified. 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 6 in. (167.64 cm) (R); Pain 7/10; 23:01 BP 110 / 69; Pulse 77; Resp 18; Temp 97.6; Pulse Ox 97% ; Pain 7/10; ajs 17:24 Body Mass Index 35.51 (99.79 kg, 167.64 cm) gr2 MDM: 18:11 NS 0.9% 1000 ml IV at bolus once ordered. mo1 18:11 Ondansetron 4 mg IVP once ordered. mo1 18:11 IV Saline Lock ordered. mo1 18:11 Undress patient appropriately for examination ordered. mo1 18:11 morphine 4 mg IVP once ordered. mo1 18:12 Basic Metabolic Profile Ordered. EDMS 18:12 CBC with Diff Ordered. EDMS 18:12 Lipase Ordered. EDMS 18:12 Liver Profile Ordered. EDMS 18:12 Urinalysis Ordered. EDMS 18:12 Urine Culture Ordered. EDMS 18:12 CT ABD & PELVIS: IV and Oral Contrast Ordered. EDMS 18:12 NOTHING BY MOUTH+DIET ordered. EDMS 18:17 -Blood Culture (Adults Only), peripheral from different site, or from device/port/PICC mo1 etc. if present ordered. 18:18 -Blood Culture Ordered. EDMS 18:44 -Blood Culture (Adults Only), peripheral from different site, or from device/port/PICC jmk etc. if present complete. 18:48 BLOOD CULTURES Ordered. EDMS 18:54 Diatrizoate Meglumine & Sodium Liquid 10 ml PO once; mix in 290cc of water ordered. kc3 18:54 Diatrizoate Meglumine & Sodium Liquid 10 ml PO once; mix in 290cc of water - give at kc3 1900 ordered. 18:56 Financial registration complete. zo 19:01 [facility] Payment Agreement was scanned into [employer] and attached to record. zo 19:13 Urinalysis Reviewed. mo1 19:14 CBC with Diff Reviewed. mo1 19:50 morphine 4 mg IVP once ordered. mo1 21:07 Ondansetron 4 mg IVP once ordered. mo1 12/20 12:21 T-Sheet-- Draft Copy was scanned into [employer] and attached to record. gb 12:21 Radiology Report was scanned into [employer] and attached to record. gb 16:37 ED course: dr peters faxed formal report of ct abd/p for fu mlg. ml Administered Medications: 12/19 18:44 Drug: morphine 4 mg Route: IVP; Site: right antecubital; jmk 18:45 Drug: NS 0.9% 1000 ml Route: IV; Rate: bolus; Site: right antecubital; jmk 18:46 Drug: Ondansetron 4 mg Route: IVP; Site: right antecubital; k 18:54 Drug: Diatrizoate Meglumine & Sodium 10 ml [diatrizoate meglumine and diat.sodium 66 kc3 %-10 % oral solution (10 mL)] Route: PO; 19:58 Not Given (provider discretion; pt states that she cannot drink any more due to recent js15 gastric bypass surgery): Diatrizoate Meglumine & Sodium Liquid 10 ml PO once; mix in 290cc of water - give at 1900 19:58 Drug: morphine 4 mg [morphine 4 mg/mL intravenous cartridge (1 mL)] Route: IVP; Site: js15 right antecubital; 21:11 Drug: Ondansetron 4 mg [ondansetron HCl 2 mg/mL intravenous solution (2 mL)] Route: js15 IVP; Site: right antecubital; Signatures: Dispatcher [employer] EDMS Mabel Shepard MD MD ml Fransisco Weir,RN RN Loly Botello, Reg Reg gb Kelsi Arnold RN RN jo3 Elena Avila Michael, PA PA mo1 Mary McleodRN RN js15 Gladys Malik,RN RN kc3 The chart was reviewed and I authenticate all verbal orders and agree with the evaluation and treatment provided.Attachments: 19:01 [facility] Payment Agreement zo 12/20 12:21 T-Sheet-- Draft Copy gb Chart Complete MTDD
== END 2016-12-19 23:15 | disposition home or self-care (01) ==
LOC: M ED 17:22
DX: R10.84 Generalized abdominal pain (principal); R11.2 Nausea with vomiting, unspecified; F41.9 Anxiety disorder, unspecified; G43.909 Migraine, unspecified, not intractable, without status migrainosus; Z87.891 Personal history of nicotine dependence; Z79.899 Other long term (current) drug therapy; Z91.040 Latex allergy status
CPT/HCPCS: 36415; 74177; 80048; 80076; 81001; 83690; 85025; 87040; 87086; 96374; 96375; 96376; 99284; J2405; Q9963; Q9967

== ENCOUNTER → 2016-12-21 | Outpatient (CLI) | payer OTHER ==
[2016-12-21 18:37] LABS: BASO % 0.3 % (0.0-1.0); EOS # 0.1 K/mm3 (0.0-0.50); EOS % 1.5 % (0.0-3.0); LARGE UNSTAINED CELL # 0.1 K/mm3 (0.0-0.4); LARGE UNSTAINED CELL % 1.7 % (0.0-4.0); LYMPH # 2.5 K/mm3 (1.5-4.5); LYMPH % 37.4 % (24.0-44.0); MEAN CORPUSCULAR HEMOGLOBIN 26.3 pg (27.0-33.0); MEAN CORPUSCULAR HGB CONC 30.4 g/dl (32.0-36.5); MEAN CORPUSCULAR VOLUME 86.5 fl (80.0-96.0); MONO # 0.3 K/mm3 (0.0-0.8); MONO % 4.1 % (0.0-5.0); NEUTROPHILS # 3.7 K/mm3 (1.8-7.7); NEUTROPHILS % 54.9 % (36.0-66.0); PLATELET COUNT, AUTOMATED 231 k/mm3 (150-450); WHITE BLOOD COUNT 6.7 K/mm3 (4.0-10.0)
[2016-12-21 18:41] LABS: ALBUMIN 3.5 GM/DL (3.2-5.2); ALBUMIN/GLOBULIN RATIO 0.78 (1.00-1.93); ALKALINE PHOSPHATASE 84 U/L (45-117); ALT/SGPT 28 U/L (12-78); ANION GAP 10 MEQ/L (8-16); AST/SGOT 46 U/L (15-37); BILIRUBIN,TOTAL 0.5 MG/DL (0.2-1.0); BLOOD UREA NITROGEN 10 MG/DL (7-18); CALCIUM LEVEL 8.7 MG/DL (8.5-10.1); CARBON DIOXIDE LEVEL 24 MEQ/L (21-32); CHLORIDE LEVEL 106 MEQ/L (98-107); CREATININE FOR GFR 0.63 MG/DL (0.55-1.02); GLOMERULAR FILTRATION RATE > 60.0 (>60); GLUCOSE, FASTING 78 MG/DL (70-105); PERCENT SATURATION 21.4 % (13.2-37.4); POTASSIUM SERUM 4.3 MEQ/L (3.5-5.1); SODIUM LEVEL 140 MEQ/L (136-145); TOTAL IRON BINDING CAPACITY 196 UG/DL (250-450)
[2016-12-21 19:36] LABS: VITAMIN B12 LEVEL 1422 PG/ML
[2016-12-21 19:37] LABS: FOLATE 17.8 NG/ML
== END ==
LOC: M LRY 14:28
PROVIDERS: ATTEND Emergency Medicine
DX: Z98.84 Bariatric surgery status (principal); E55.9 Vitamin D deficiency, unspecified; G62.9 Polyneuropathy, unspecified

== ENCOUNTER 2016-12-24 05:17 | Emergency (ER) | payer OTHER ==
[2016-12-24 06:36] LABS: BASO % 0.4 % (0.0-1.0); EOS # 0.2 K/mm3 (0.0-0.50); EOS % 3.2 % (0.0-3.0); LARGE UNSTAINED CELL # 0.1 K/mm3 (0.0-0.4); LARGE UNSTAINED CELL % 1.1 % (0.0-4.0); LYMPH # 2.1 K/mm3 (1.5-4.5); LYMPH % 30.5 % (24.0-44.0); MEAN CORPUSCULAR HEMOGLOBIN 26.4 pg (27.0-33.0); MEAN CORPUSCULAR HGB CONC 31.2 g/dl (32.0-36.5); MEAN CORPUSCULAR VOLUME 84.8 fl (80.0-96.0); MONO # 0.2 K/mm3 (0.0-0.8); MONO % 3.6 % (0.0-5.0); NEUTROPHILS % 61.2 % (36.0-66.0); PLATELET COUNT, AUTOMATED 211 k/mm3 (150-450); RED CELL DISTRIBUTION WIDTH 14.6 % (11.5-14.5); WHITE BLOOD COUNT 6.5 K/mm3 (4.0-10.0)
[2016-12-24] MEDS ORDERED: METOCLOPRAMIDE INJ 10MG/2ML VIAL (J2765) As Ordered ONE (06:54)
[2016-12-24] MEDS ORDERED: KETOROLAC 30 MG/ML VIAL (J1885) As Ordered ONE (06:54)
[2016-12-24] MEDS ORDERED: GASTROGRAFIN SOLUTION 30ML (Q9963) As Ordered ONE (06:54)
[2016-12-24 06:59] LABS: ANION GAP 10 MEQ/L (8-16); AST/SGOT 53 U/L (15-37); BLOOD UREA NITROGEN 14 MG/DL (7-18); CALCIUM LEVEL 8.9 MG/DL (8.5-10.1); CARBON DIOXIDE LEVEL 25 MEQ/L (21-32); CHLORIDE LEVEL 106 MEQ/L (98-107); CREATININE FOR GFR 0.68 MG/DL (0.55-1.02); GLOMERULAR FILTRATION RATE > 60.0 (>60); GLUCOSE, FASTING 75 MG/DL (70-105); POTASSIUM SERUM 4.2 MEQ/L (3.5-5.1); SODIUM LEVEL 141 MEQ/L (136-145)
[2016-12-24 07:00] LABS: ALBUMIN 3.5 GM/DL (3.2-5.2); ALBUMIN/GLOBULIN RATIO 0.73 (1.00-1.93); ALKALINE PHOSPHATASE 84 U/L (45-117); ALT/SGPT 30 U/L (12-78); AMYLASE 33 U/L (25-115); BILIRUBIN,DIRECT 0.2 MG/DL (0.0-0.2); BILIRUBIN,TOTAL 0.4 MG/DL (0.2-1.0); TOTAL PROTEIN 8.3 GM/DL (6.4-8.2)
[2016-12-24] MEDS ORDERED: ISOVUE-370 76% 100ML VIAL (Q9967) As Ordered ONE (07:46)
[2016-12-24] MEDS ORDERED: MORPHINE 4 MG/ML 1ML SYRINGE As Ordered ONE ×2 (08:38→09:04)
--- NOTE | 2016-12-24 10:03 | REP ---
CT study of the abdomen and pelvis with IV contrast: 100 ml of Isovue 370 is given intravenously. Comparison study December 19, 2016. History: Abdominal pain. The patient gives a history of previous hysterectomy, gastric bypass, and . Findings: Preliminary digital cage tender radiograph shows an unremarkable bowel gas pattern. There is atelectasis with air bronchograms again noted in the left lower lobe and to a lesser extent the right lower lobe. Small quantity of bilateral pleural fluid is seen left greater than right unchanged from the December 19, 2016 study. There are sutures in the left upper quadrant post gastric bypass. No focal hepatic lesion is seen. Spleen remains homogeneous in texture, borderline in size, 13.2 cm. No adrenal lesion is seen. Pancreas is unremarkable. The gallbladder is mildly distended. There is a small area of residual fibrosis or inflammation in the peritoneal fat just beneath the inferior margin of the liver adjacent to the hepatic flexure of the colon. This is unchanged from December 19, 2016 study. There is a pigtail drainage catheter in this location at the time of the December 04, [address] study. No recurrent abscess is seen. There is no observable ascites today. Normal appendix is seen. Uterus is surgically absent. A normal appearing left ovary is seen unchanged. No retroperitoneal mass, adenopathy or free air is seen. No evidence of obstruction. Kidneys enhance symmetrically and are morphologically intact. Impression: No evidence to suggest recurrent abscess or obstruction. No acute intra-abdominal abnormality. Some postprocedure and post-drainage fibrosis is seen in the subhepatic space. Borderline spleen size. The patient is status post gastric bypass. Small amount of left pleural fluid and bilateral lower lobe atelectatic changes are seen. Signed by Bryan Canales MD 12/24/2016 02:31 P
[2016-12-24] MEDS ORDERED: MORPHINE 2 MG/ML 1ML SYRINGE As Ordered ONE (11:55)
--- NOTE | 2016-12-24 12:12 | EDDOCDS ---
Physician Documentation [facility] Name: Luigi Lund Age: 36 yrs Sex: Female : 1980 Arrival Date: 12/24/2016 Time: 05:17 Bed 11 Private MD: Reid Magana P. Disposition: 12/24 10:10 Critical Care:. ml Disposition: 12/24/16 10:10 Transfer ordered to [facility]. Diagnosis is Generalized abdominal pain - vomiting. - Reason for transfer: Higher level of care. - Accepting physician is dr morton. - Condition is Stable. - Problem is new. - Symptoms are unchanged. Historical: - Allergies: Latex; No known drug Allergies; - Home Meds: 1. omeprazole 40 mg oral cpDR 1 cap once daily (Last dose: 12/23/2016) 2. Sertraline 100 mg daily (Last dose: 12/23/2016) 3. promethazine 25 mg Oral tab 1 tab 2 times per day (Last dose: 12/24/2016) 4. Percocet 5-325 mg Oral tab 1 tab every 4 hours (Last dose: 12/23/2016) - PMHx: Anxiety; Migraine Headaches; - PSHx: Multiple laparoscopies for endometriosis; Hysterectomy; ; Gastric Bypass (October 2016); - Social history: Smoking status: Patient states former smoker of tobacco. No barriers to communication noted, The patient speaks fluent French, Speaks appropriately for age. - Family history: Not pertinent. - : The pt / caregiver states he / she is not on anticoagulants. Home medication list is obtained from the patient, [employer] import data. - Exposure Risk Screening:: None identified. 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 6 in. (167.64 cm) (R); Pain 8/10; 07:48 BP 128 / 86; Pulse 102; Resp 16; Temp 97.5(O); Pulse Ox 98% on R/A; js13 08:15 Pain 4/10; js13 08:58 Pain 2/10; js13 09:26 Pain 3/10; js13 09:47 BP 134 / 86; Pulse 99; Resp 16; Temp 97.2(O); Pulse Ox 97% on R/A; js13 12:10 BP 116 / 62; Pulse 89; Resp 18; Temp 97.6(T); Pulse Ox 98% on R/A; Pain 7/10; rs3 05:26 Body Mass Index 35.51 (99.79 kg, 167.64 cm) [facility] [place]: 05:52 IV Saline Lock ordered. cs11 05:52 NS 0.9% 1000 ml IV at bolus once ordered. cs11 05:52 ketorolac 30 mg IVP once ordered. cs11 05:53 CBC with Diff Ordered. EDMS 05:53 MED Profile Ordered. EDMS 05:53 Liver Profile Ordered. EDMS 05:53 Amylase Ordered. EDMS 05:53 Lipase Ordered. EDMS 05:53 Urinalysis Ordered. EDMS 05:53 Urine Culture Ordered. EDMS 05:54 CT ABD & PELVIS: IV and Oral Contrast Ordered. EDMS 06:11 Diatrizoate Meglumine & Sodium Liquid 10 ml PO once; mix in 290cc of water; 1st cup at af2 0625, 2nd cup at 0655 ordered. 06:52 Metoclopramide 10 mg IV at 40 mg/hr once over 15 mins ordered. cs11 07:01 CBC with Diff Reviewed. ml 08:17 morphine 4 mg IVP every 30 minutes; Document pain score/vitals after each dose (Hold if ml SBP < 90mmHg) x2 ordered. 08:18 Misc. Nursing Order ordered. ml 08:54 NS 0.9% 1000 ml IV at bolus once ordered. js13 10:04 Liver Profile Reviewed. ml 10:04 Urinalysis Reviewed. ml 10:04 MED Profile Reviewed. ml 10:04 Amylase Reviewed. ml 10:04 Lipase Reviewed. ml 11:45 Financial registration complete. [place] Administered Medications: 07:52 Drug: Diatrizoate Meglumine & Sodium 10 ml [diatrizoate meglumine and diat.sodium 66 js13 %-10 % oral solution (10 mL)] Route: PO; 07:53 Drug: ketorolac 30 mg [ketorolac 30 mg/mL (1 mL) injection solution (1 mL)] Route: IVP; js13 Site: right forearm; 08:15 Follow up: Pain 4/10 Adult; Response: Pain is unchanged, physician notified 13 07:53 Drug: Metoclopramide 10 mg [metoclopramide 5 mg/mL injection solution] Route: IV; Rate: js13 40 mg/hr; Infused Over: 15 mins; Site: right forearm; 07:54 Drug: NS 0.9% 1000 ml [sodium chloride 0.9 % intravenous solution] Route: IV; Rate: js13 bolus; Site: right forearm; 08:54 Follow up: IV Status: Completed infusion; IV Intake: 1000ml 08:40 Drug: morphine 4 mg [morphine 4 mg/mL intravenous cartridge (1 mL)] Route: IVP; Site: js13 right forearm; 08:58 Follow up: Pain 2/10 Adult; Response: Confirmed pt not driving.; Pain is decreased 08:54 Drug: NS 0.9% 1000 ml [sodium chloride 0.9 % intravenous solution] Route: IV; Rate: js13 bolus; Site: right forearm; 10:39 Follow up: IV Status: Completed infusion; IV Intake: 1000ml 09:07 Drug: morphine 4 mg [morphine 4 mg/mL intravenous cartridge (1 mL)] Route: IVP; Site: js13 right forearm; 09:26 Follow up: Pain 3/10 Adult; Response: Confirmed pt not driving.; Pain is decreased Critical Care Time: 10:10 Critical care time: Bedside Care: 90 minutes, Consultation: 20 minutes. Total time: 110 ml minutes Signatures: Dispatcher [employer] Mabel Salmon MD MD ml Lucille Melgoza, RN RN kmg1 Thais Corona RN RN rs3 Kelsi Pack RN RN js13 Vish Walls DO DO cs11 Charis StoddardRN RN af2 Ayah Spaulding MTDD
--- NOTE | 2016-12-24 12:12 | EDDOCDS ---
Nurse's Notes [facility] Name: Luigi Lund Age: 36 yrs Sex: Female : 1980 Arrival Date: 12/24/2016 Time: 05:17 Bed 11 Private MD: Reid Magana P. Diagnosis: Generalized abdominal pain-vomiting Presentation: 12/24 05:20 Presenting complaint: Patient states: Vomiting since 1800 last evening. Epigastric kmg1 pain. Suicide/Homicide risk assessment- the patient denies having any suicidal and/or homicidal ideations and does not present with any other emotional, behavioral or mental health complaints. Status: The patient is a dependent. Transition of care: patient was not received from another setting of care. 05:20 Acuity: TANA Level 3 km 05:20 Method Of Arrival: Walkin/Carried/Asstd km 12:10 Adult Sepsis Screening: The patient does not have new or worsening altered mentation. rs3 Patient's respiratory rate is less than 22. Systolic blood pressure is greater than 100. Patient has a qSOFA score of 0- Negative Sepsis Screen. Triage Assessment: 05:26 General: Appears ill, Behavior is appropriate for age, cooperative. Pain: Location: km epigastric area Pain currently is 7 out of 10 on a pain scale. Quality of pain is described as squeezing. HIV screening NA for this visit Offered previously. GI: Reports epigastric pain, nausea, vomiting. [employer]ING [employer]: 05:26 LMP N/A - Hysterectomy kmg1 Historical: - Allergies: Latex; No known drug Allergies; - Home Meds: 1. omeprazole 40 mg oral cpDR 1 cap once daily (Last dose: 12/23/2016) 2. Sertraline 100 mg daily (Last dose: 12/23/2016) 3. promethazine 25 mg Oral tab 1 tab 2 times per day (Last dose: 12/24/2016) 4. Percocet 5-325 mg Oral tab 1 tab every 4 hours (Last dose: 12/23/2016) - PMHx: Anxiety; Migraine Headaches; - PSHx: Multiple laparoscopies for endometriosis; Hysterectomy; ; Gastric Bypass (October 2016); - Social history: Smoking status: Patient states former smoker of tobacco. No barriers to communication noted, The patient speaks fluent Welsh, Speaks appropriately for age. - Family history: Not pertinent. - : The pt / caregiver states he / she is not on anticoagulants. Home medication list is obtained from the patient, [employer] import data. - Exposure Risk Screening:: None identified. Screenin:51 Screening information is obtained from the patient. Fall risk: No risks identified. af2 Assistance ADL's: requires no assistance with activities of daily living. Abuse/DV Screen: The patient / caregiver reports he/she is: not in a situation that causes fear, pain or injury. Nutritional screening: No deficits noted. Advance Directives: There is no active DNR order. home support is adequate. Assessment: 06:52 General: Appears in no apparent distress, comfortable, Behavior is appropriate for age. af2 Pain: Location: abdomen Pain currently is 7 out of 10 on a pain scale. Neurological: Level of Consciousness is awake, alert, obeys commands. Respiratory: Airway is patent Respiratory effort is even, unlabored. GI: Abdomen is obese, Bowel sounds present X 4 quads. Abd is tender to palpation X 4 quads. Reports nausea, vomiting. Derm: Skin is pale. 07:48 Adult Sepsis Screening: The patient does not have new or worsening altered mentation. js13 Patient's respiratory rate is less than 22. Systolic blood pressure is greater than 100. Patient has a qSOFA score of 0- Negative Sepsis Screen. General: Appears in no apparent distress, comfortable, Behavior is appropriate for age. Pain: Pain currently is 3 out of 10 on a pain scale. Neurological: Level of Consciousness is awake, alert, obeys commands. Respiratory: Airway is patent Respiratory effort is even, unlabored. GI: Abdomen is obese, Bowel sounds present X 4 quads. Abd is soft Abd is tender to palpation Reports nausea. Derm: Skin is pink, warm & dry. 08:52 General: Appears in no apparent distress, Behavior is appropriate for age, cooperative. js13 Pain: Location: abdomen Pain currently is 4 out of 10 on a pain scale. Neurological: No deficits noted. Level of Consciousness is awake, alert. Respiratory: Airway is patent Respiratory effort is even, unlabored. GI: Abdomen is obese, Bowel sounds present X 4 quads. Abd is soft Abd is tender to palpation. Derm: Skin is pink, warm & dry. 09:47 Adult Sepsis Screening: The patient does not have new or worsening altered mentation. js13 Patient's respiratory rate is less than 22. Systolic blood pressure is greater than 100. Patient has a qSOFA score of 0- Negative Sepsis Screen. General: Appears in no apparent distress, comfortable, Behavior is appropriate for age, cooperative. Pain: Location: abdomen Pain currently is 3 out of 10 on a pain scale. Neurological: Level of Consciousness is awake, alert. Neurological: Level of Consciousness is awake, alert, obeys commands. Respiratory: Airway is patent Respiratory effort is even, unlabored, Respiratory pattern is regular, symmetrical. GI: Abdomen is obese, Bowel sounds present X 4 quads. Abd is soft Abd is tender to palpation Reports nausea. Derm: Skin is pink, warm & dry. 10:38 General: Appears in no apparent distress, comfortable, Behavior is appropriate for age, js13 cooperative. Neurological: Level of Consciousness is awake, alert. Respiratory: Airway is patent Respiratory effort is even, unlabored, Respiratory pattern is regular, symmetrical. Derm: Skin is pink, warm & dry. 11:48 General: Report called to Kelsi Barrett RN at [facility] . js13 12:10 General: Appears in no apparent distress, Behavior is appropriate for age, reports of rs3 upper abdominal pain 7/10. ordered med morphine 2 mg IVP given with relief. ambulance crew in here with patient. report given.. Vital Signs: 05:26 BP 132 / 88; Pulse 120; Resp 20; Temp 97.3(O); Pulse Ox 97% on R/A; Weight 99.79 kg kmg1 (R); Height 5 ft. 6 in. (167.64 cm) (R); Pain 8/10; 07:48 BP 128 / 86; Pulse 102; Resp 16; Temp 97.5(O); Pulse Ox 98% on R/A; js13 08:15 Pain 4/10; js13 08:58 Pain 2/10; js13 09:26 Pain 3/10; js13 09:47 BP 134 / 86; Pulse 99; Resp 16; Temp 97.2(O); Pulse Ox 97% on R/A; js13 12:10 BP 116 / 62; Pulse 89; Resp 18; Temp 97.6(T); Pulse Ox 98% on R/A; Pain 7/10; rs3 05:26 Body Mass Index 35.51 (99.79 kg, 167.64 cm) [facility] [place] Vitals: 05:26 Log In Time: December 24, 2016 at 05:17. [facility] [place] ED Course: 05:19 Patient visited by Mj Macdonald Reg. pm4 05:19 Reid Magana is Private Physician. pm4 05:19 Patient moved to Waiting pm4 05:22 Triage Initiated [facility] [place] 05:30 Charis Stoddard RN is Primary Nurse. kmg1 05:30 Patient moved to 11 km 05:41 Vish Walls DO is Attending Physician. cs11 05:41 Patient visited by Vish Walls DO. cs11 06:50 Patient visited by Charis Stoddard RN. af2 06:51 The patient / caregiver is instructed regarding the plan of care and ED course. Patient af2 has correct armband on for positive identification. Placed in gown. 06:51 Inserted saline lock: 20 gauge in left antecubital area and blood collected. The af2 patient tolerated the procedure well. 06:51 Missed attempts: 20 gauge X 2 Bleeding controlled, band aid applied, catheter tip af2 intact. 06:52 Patient visited by Charis Stoddard RN. af2 07:01 Attending Physician role handed off by Vish Walls DO ml 07:01 Mabel Shepard MD is Attending Physician. ml 07:02 Kelsi aPck RN is Primary Nurse. js13 07:48 Inserted saline lock: 18 gauge in right forearm The patient tolerated the procedure js13 well. No procedures done that require assistance. Labs drawn. (by ED staff). Sent per order to lab. 07:51 Patient visited by Kelsi Pack RN. js13 08:03 Primary Nurse role handed off by Charis Stoddard RN deg 08:54 Patient visited by Kelsi Pack RN. js13 08:58 Urine Culture Sent. js13 08:58 Urinalysis Sent. js13 09:49 Patient visited by Kelsi Pack RN. js13 10:08 CT ABD & PELVIS: IV and Oral Contrast Returned. EDMS 10:38 Patient visited by Kelsi Pack RN. js13 11:06 Thais Corona RN is Primary Nurse. rs3 Administered Medications: 07:52 Drug: Diatrizoate Meglumine & Sodium 10 ml [diatrizoate meglumine and diat.sodium 66 js13 %-10 % oral solution (10 mL)] Route: PO; 07:53 Drug: ketorolac 30 mg [ketorolac 30 mg/mL (1 mL) injection solution (1 mL)] Route: IVP; js13 Site: right forearm; 08:15 Follow up: Pain 4/10 Adult; Response: Pain is unchanged, physician notified js13 07:53 Drug: Metoclopramide 10 mg [metoclopramide 5 mg/mL injection solution] Route: IV; Rate: js13 40 mg/hr; Infused Over: 15 mins; Site: right forearm; 07:54 Drug: NS 0.9% 1000 ml [sodium chloride 0.9 % intravenous solution] Route: IV; Rate: js13 bolus; Site: right forearm; 08:54 Follow up: IV Status: Completed infusion; IV Intake: 1000ml js13 08:40 Drug: morphine 4 mg [morphine 4 mg/mL intravenous cartridge (1 mL)] Route: IVP; Site: js13 right forearm; 08:58 Follow up: Pain 2/10 Adult; Response: Confirmed pt not driving.; Pain is decreased js13 08:54 Drug: NS 0.9% 1000 ml [sodium chloride 0.9 % intravenous solution] Route: IV; Rate: js13 bolus; Site: right forearm; 10:39 Follow up: IV Status: Completed infusion; IV Intake: 1000ml js13 09:07 Drug: morphine 4 mg [morphine 4 mg/mL intravenous cartridge (1 mL)] Route: IVP; Site: js13 right forearm; 09:26 Follow up: Pain 3/10 Adult; Response: Confirmed pt not driving.; Pain is decreased js13 Intake: 08:54 IV: 1000.00ml; Total: 1000.00ml. js13 10:39 IV: 1000.00ml; Total: 2000.00ml. js13 Order Results: Lab Order: CBC with Diff; SPEC'M 12/24/16 06:29 Test: WHITE BLOOD COUNT; Value: 6.5; Range: 4.0-10.0; Units: K/mm3; Status: F Test: RED BLOOD COUNT; Value: 4.82; Range: 4.00-5.40; Units: M/mm3; Status: F Test: HEMOGLOBIN; Value: 12.7; Range: 12.0-16.0; Units: g/dl; Status: F Test: HEMATOCRIT; Value: 40.9; Range: 36.0-47.0; Units: %; Status: F Test: MEAN CORPUSCULAR VOLUME; Value: 84.8; Range: 80.0-96.0; Units: fl; Status: F Test: MEAN CORPUSCULAR HEMOGLOBIN; Value: 26.4; Range: 27.0-33.0; Abnormal: Below low normal; Units: pg; Status: F Test: MEAN CORPUSCULAR HGB CONC; Value: 31.2; Range: 32.0-36.5; Abnormal: Below low normal; Units: g/dl; Status: F Test: RED CELL DISTRIBUTION WIDTH; Value: 14.6; Range: 11.5-14.5; Abnormal: Above high normal; Units: %; Status: F Test: PLATELET COUNT, AUTOMATED; Value: 211; Range: 150-450; Units: k/mm3; Status: F Test: NEUTROPHILS %; Value: 61.2; Range: 36.0-66.0; Units: %; Status: F Test: LYMPH %; Value: 30.5; Range: 24.0-44.0; Units: %; Status: F Test: MONO %; Value: 3.6; Range: 0.0-5.0; Units: %; Status: F Test: EOS %; Value: 3.2; Range: 0.0-3.0; Abnormal: Above high normal; Units: %; Status: F Test: BASO %; Value: 0.4; Range: 0.0-1.0; Units: %; Status: F Test: LARGE UNSTAINED CELL %; Value: 1.1; Range: 0.0-4.0; Units: %; Status: F Test: NEUTROPHILS #; Value: 4.0; Range: 1.8-7.7; Units: K/mm3; Status: F Test: LYMPH #; Value: 2.1; Range: 1.5-4.5; Units: K/mm3; Status: F Test: MONO #; Value: 0.2; Range: 0.0-0.8; Units: K/mm3; Status: F Test: EOS #; Value: 0.2; Range: 0.0-0.50; Units: K/mm3; Status: F Test: BASO #; Value: 0.0; Range: 0.0-0.2; Units: K/mm3; Status: F Test: LARGE UNSTAINED CELL #; Value: 0.1; Range: 0.0-0.4; Units: K/mm3; Status: F Lab Order: MED Profile; SPEC' 12/24/16 06:29 Test: GLUCOSE, FASTING; Value: 75; Range: 70-105; Units: MG/DL; Status: F Test: BLOOD UREA NITROGEN; Value: 14; Range: 7-18; Units: MG/DL; Status: F Test: CREATININE FOR GFR; Value: 0.68; Range: 0.55-1.02; Units: MG/DL; Status: F Test: GLOMERULAR FILTRATION RATE; Value: > 60.0; Range: >60; Status: F Test: SODIUM LEVEL; Value: 141; Range: 136-145; Units: MEQ/L; Status: F Test: POTASSIUM SERUM; Value: 4.2; Range: 3.5-5.1; Units: MEQ/L; Status: F Test: CHLORIDE LEVEL; Value: 106; Range: 98-107; Units: MEQ/L; Status: F Test: CARBON DIOXIDE LEVEL; Value: 25; Range: 21-32; Units: MEQ/L; Status: F Test: ANION GAP; Value: 10; Range: 8-16; Units: MEQ/L; Status: F Test: CALCIUM LEVEL; Value: 8.9; Range: 8.5-10.1; Units: MG/DL; Status: F Test Note: ; Units are mL/min/1.73 m2 Chronic Kidney Disease Staging per NKF: Stage I & II GFR >=60 Normal to Mildly Decreased Stage III GFR 30-59 Moderately Decreased Stage IV GFR 15-29 Severely Decreased Stage V GFR <15 Very Little GFR Left ESRD GFR <15 on SETUP TECHNICIAN Lab Order: Liver Profile; SPEC' 12/24/16 06:29 Test: AST/SGOT; Value: 53; Range: 15-37; Abnormal: Above high normal; Units: U/L; Status: F Test: ALT/SGPT; Value: 30; Range: 12-78; Units: U/L; Status: F Test: ALKALINE PHOSPHATASE; Value: 84; Range: 45-117; Units: U/L; Status: F Test: BILIRUBIN,TOTAL; Value: 0.4; Range: 0.2-1.0; Units: MG/DL; Status: F Test: BILIRUBIN,DIRECT; Value: 0.2; Range: 0.0-0.2; Units: MG/DL; Status: F Test: TOTAL PROTEIN; Value: 8.3; Range: 6.4-8.2; Abnormal: Above high normal; Units: GM/DL; Status: F Test: ALBUMIN; Value: 3.5; Range: 3.2-5.2; Units: GM/DL; Status: F Test: ALBUMIN/GLOBULIN RATIO; Value: 0.73; Range: 1.00-1.93; Abnormal: Below low normal; Status: F Lab Order: Amylase; [facility] 12/24/16 06:29 Test: AMYLASE; Value: 33; Range: 25-115; Units: U/L; Status: F Lab Order: Lipase; [facility] 12/24/16 06:29 Test: LIPASE; Value: 283; Range: 73-393; Units: U/L; Status: F Lab Order: Urinalysis; [facility] 12/24/16 08:59 Test: APPEARANCE, URINE; Value: CLOUDY; Range: CLEAR; Abnormal: Above high normal; Status: F Test: COLOR, URINE; Value: CHARIS; Range: YELLOW; Status: F Test: PH,URINE; Value: 6.0; Range: 5.0-9.0; Units: UNITS; Status: F Test: SPECIFIC GRAVITY URINE AUTO; Value: 1.038; Range: 1.002-1.035; Status: F Test: PROTEIN, URINE AUTO; Value: 1+; Range: NEGATIVE; Abnormal: Above high normal; Units: mg/dL; Status: F Test: GLUCOSE, URINE (UA) AUTO; Value: NEGATIVE; Range: NEGATIVE; Units: mg/dL; Status: F Test: KETONE, URINE AUTO; Value: 2+; Range: NEGATIVE; Abnormal: Above high normal; Units: mg/dL; Status: F Test: UROBILINOGEN, URINE AUTO; Value: 2.0; Range: 0.0-2.0; Abnormal: Above high normal; Units: mg/dL; Status: F Test: BILIRUBIN, URINE AUTO; Value: 1+; Range: NEGATIVE; Abnormal: Above high normal; Status: F Test: NITRITE, URINE AUTO; Value: NEGATIVE; Range: NEGATIVE; Status: F Test: LEUKOCYTE ESTERASE, URINE AUTO; Value: TRACE; Range: NEGATIVE; Abnormal: Above high normal; Status: F Test: BLOOD, URINE BLOOD; Value: NEGATIVE; Range: NEGATIVE; Status: F Test: WBC, URINE AUTO; Value: 9; Range: 0-3; Abnormal: Above high normal; Units: /HPF; Status: F Test: RBC, URINE AUTO; Value: 9; Range: 0-3; Abnormal: Above high normal; Units: /HPF; Status: F Test: BACTERIA, URINE AUTO; Value: 1+; Range: NEGATIVE; Abnormal: Above high normal; Status: F Test: SQUAMOUS EPITHELIAL CELL UR AU; Value: 33; Range: 0-6; Units: /HPF; Status: F Test: MUCUS, URINE; Value: LARGE; Range: NEGATIVE; Status: F Test: HYALINE CAST, URINE AUTO; Value: 0; Range: 0-1; Units: /LPF; Status: F Radiology Order: CT ABD & PELVIS: IV and Oral Contrast Test: CT ABD & PELVIS: IV and Oral Contrast REASON FOR EXAMINATION: Abdomen Pain; CT study of the abdomen and pelvis with IV contrast:; ; 100 ml of Isovue 370 is given intravenously.; ; Comparison study December 19, 2016.; ; History: Abdominal pain. The patient gives a history of previous hysterectomy,; gastric bypass, and .; ; Findings: Preliminary digital tennis net maker radiograph shows an unremarkable bowel gas; pattern. There is atelectasis with air bronchograms again noted in the left; lower lobe and to a lesser extent the right lower lobe. Small quantity of; bilateral pleural fluid is seen left greater than right unchanged from the; December 19, 2016 study. There are sutures in the left upper quadrant post; gastric bypass. No focal hepatic lesion is seen. Spleen remains homogeneous in; texture, borderline in size, 13.2 cm. No adrenal lesion is seen. Pancreas is; unremarkable. The gallbladder is mildly distended. There is a small area of; residual fibrosis or inflammation in the peritoneal fat just beneath the inferior; margin of the liver adjacent to the hepatic flexure of the colon. This is; unchanged from December 19, 2016 study. There is a pigtail drainage catheter in; this location at the time of the December 04, [address] study. No recurrent; abscess is seen. There is no observable ascites today. Normal appendix is seen.; Uterus is surgically absent. A normal appearing left ovary is seen unchanged.; No retroperitoneal mass, adenopathy or free air is seen. No evidence of; obstruction. Kidneys enhance symmetrically and are morphologically intact.; ; Impression:; ; No evidence to suggest recurrent abscess or obstruction. No acute; intra-abdominal abnormality. Some postprocedure and post-drainage fibrosis is; seen in the subhepatic space. Borderline spleen size. The patient is status; post gastric bypass. Small amount of left pleural fluid and bilateral lower lobe; atelectatic changes are seen.; ; ; ; ; ; ; Unreviewed; Outcome: 10:10 ER care complete, transfer ordered by Provider. 12:09 Discharge Assessment: patient administered narcotics - yes. Patient was admitted to the [address] or transferred to another facility. The following High Risk Discharge criteria are identified: None. Transferred to [facility]. by EMS ground [facility] ambulance report to accompanying personnel Ana and allen brito. Condition: stable. CT Study completed. Property :Personal belongings accompany Pt. 12:12 Patient left the ED. [facility] Signatures: Dispatcher [employer] EDMS Mabel Shepard MD MD ml [place] Cespedes, Reconnaissance Crewmember Unit deg Lucille Melgoza, RN RN kmg1 Thais Corona RN RN 3 Kelsi Pack RN RN js13 Vish Walls, DO DO cs11 Charis Stoddard RN RN af2 Mj Macdonald, Reg Reg pm4 MTDD
--- NOTE | 2016-12-26 13:14 | EDDOCDS ---
Physician Documentation [facility] Name: Luigi Lund Age: 36 yrs Sex: Female : 1980 Arrival Date: 12/24/2016 Time: 05:17 Bed 11 Private MD: Reid Magana P. Disposition: 12/24 10:10 Critical Care:. ml Disposition: 12/24/16 10:10 Transfer ordered to [facility]. Diagnosis is Generalized abdominal pain - vomiting. - Reason for transfer: Higher level of care. - Accepting physician is dr morton. - Condition is Stable. - Problem is new. - Symptoms are unchanged. Historical: - Allergies: Latex; No known drug Allergies; - Home Meds: 1. omeprazole 40 mg oral cpDR 1 cap once daily (Last dose: 12/23/2016) 2. Sertraline 100 mg daily (Last dose: 12/23/2016) 3. promethazine 25 mg Oral tab 1 tab 2 times per day (Last dose: 12/24/2016) 4. Percocet 5-325 mg Oral tab 1 tab every 4 hours (Last dose: 12/23/2016) - PMHx: Anxiety; Migraine Headaches; - PSHx: Multiple laparoscopies for endometriosis; Hysterectomy; ; Gastric Bypass (October 2016); - Social history: Smoking status: Patient states former smoker of tobacco. No barriers to communication noted, The patient speaks fluent Romansh, Speaks appropriately for age. - Family history: Not pertinent. - : The pt / caregiver states he / she is not on anticoagulants. Home medication list is obtained from the patient, [employer] import data. - Exposure Risk Screening:: None identified. 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 6 in. (167.64 cm) (R); Pain 8/10; 07:48 BP 128 / 86; Pulse 102; Resp 16; Temp 97.5(O); Pulse Ox 98% on R/A; js13 08:15 Pain 4/10; js13 08:58 Pain 2/10; js13 09:26 Pain 3/10; js13 09:47 BP 134 / 86; Pulse 99; Resp 16; Temp 97.2(O); Pulse Ox 97% on R/A; js13 12:10 BP 116 / 62; Pulse 89; Resp 18; Temp 97.6(T); Pulse Ox 98% on R/A; Pain 7/10; rs3 05:26 Body Mass Index 35.51 (99.79 kg, 167.64 cm) km MDM: 05:52 IV Saline Lock ordered. cs11 05:52 NS 0.9% 1000 ml IV at bolus once ordered. cs11 05:52 ketorolac 30 mg IVP once ordered. cs11 05:53 CBC with Diff Ordered. EDMS 05:53 MED Profile Ordered. EDMS 05:53 Liver Profile Ordered. EDMS 05:53 Amylase Ordered. EDMS 05:53 Lipase Ordered. EDMS 05:53 Urinalysis Ordered. EDMS 05:53 Urine Culture Ordered. EDMS 05:54 CT ABD & PELVIS: IV and Oral Contrast Ordered. EDMS 06:11 Diatrizoate Meglumine & Sodium Liquid 10 ml PO once; mix in 290cc of water; 1st cup at af2 0625, 2nd cup at 0655 ordered. 06:52 Metoclopramide 10 mg IV at 40 mg/hr once over 15 mins ordered. cs11 07:01 CBC with Diff Reviewed. ml 08:17 morphine 4 mg IVP every 30 minutes; Document pain score/vitals after each dose (Hold if ml SBP < 90mmHg) x2 ordered. 08:18 Misc. Nursing Order ordered. ml 08:54 NS 0.9% 1000 ml IV at bolus once ordered. js13 10:04 Liver Profile Reviewed. ml 10:04 Urinalysis Reviewed. ml 10:04 MED Profile Reviewed. ml 10:04 Amylase Reviewed. ml 10:04 Lipase Reviewed. ml 11:45 Financial registration complete. az 13:24 [facility] Payment Agreement was scanned into [employer] and attached to record. az 14:36 T-Sheet-- Draft Copy was scanned into [employer] and attached to record. gb 14:36 Radiology Report was scanned into [employer] and attached to record. gb Administered Medications: 07:52 Drug: Diatrizoate Meglumine & Sodium 10 ml [diatrizoate meglumine and diat.sodium 66 js13 %-10 % oral solution (10 mL)] Route: PO; 07:53 Drug: ketorolac 30 mg [ketorolac 30 mg/mL (1 mL) injection solution (1 mL)] Route: IVP; js13 Site: right forearm; 08:15 Follow up: Pain 4/10 Adult; Response: Pain is unchanged, physician notified js13 07:53 Drug: Metoclopramide 10 mg [metoclopramide 5 mg/mL injection solution] Route: IV; Rate: js13 40 mg/hr; Infused Over: 15 mins; Site: right forearm; 07:54 Drug: NS 0.9% 1000 ml [sodium chloride 0.9 % intravenous solution] Route: IV; Rate: js13 bolus; Site: right forearm; 08:54 Follow up: IV Status: Completed infusion; IV Intake: 1000ml 13 08:40 Drug: morphine 4 mg [morphine 4 mg/mL intravenous cartridge (1 mL)] Route: IVP; Site: js13 right forearm; 08:58 Follow up: Pain 2/10 Adult; Response: Confirmed pt not driving.; Pain is decreased 08:54 Drug: NS 0.9% 1000 ml [sodium chloride 0.9 % intravenous solution] Route: IV; Rate: js13 bolus; Site: right forearm; 10:39 Follow up: IV Status: Completed infusion; IV Intake: 1000ml 09:07 Drug: morphine 4 mg [morphine 4 mg/mL intravenous cartridge (1 mL)] Route: IVP; Site: js13 right forearm; 09:26 Follow up: Pain 3/10 Adult; Response: Confirmed pt not driving.; Pain is decreased 13 Critical Care Time: 10:10 Critical care time: Bedside Care: 90 minutes, Consultation: 20 minutes. Total time: 110 ml minutes Signatures: Dispatcher [employer] EDMabel Redding MD MD ml Garrison, Kelly, RN RN kmg1 Loly Obregon, Thais Bonilla RN RN rs3 Kelsi Pack RN RN js13 Vish Walls DO DO cs11 Charis StoddardRN RN af2 Ayah Spaulding The chart was reviewed and I authenticate all verbal orders and agree with the evaluation and treatment provided.Attachments: 13:24 [facility] Payment Agreement az 14:36 T-Sheet-- Draft Copy gb Chart Complete MTDD
--- NOTE | 2016-12-26 13:14 | EDDOCDS ---
Nurse's Notes [facility] Name: Luigi Lund Age: 36 yrs Sex: Female : 1980 Arrival Date: 12/24/2016 Time: 05:17 Bed 11 Private MD: Reid Magana P. Diagnosis: Generalized abdominal pain-vomiting Presentation: 12/24 05:20 Presenting complaint: Patient states: Vomiting since 1800 last evening. Epigastric kmg1 pain. Suicide/Homicide risk assessment- the patient denies having any suicidal and/or homicidal ideations and does not present with any other emotional, behavioral or mental health complaints. Status: The patient is a dependent. Transition of care: patient was not received from another setting of care. 05:20 Acuity: TANA Level 3 km 05:20 Method Of Arrival: Walkin/Carried/Asstd km 12:10 Adult Sepsis Screening: The patient does not have new or worsening altered mentation. rs3 Patient's respiratory rate is less than 22. Systolic blood pressure is greater than 100. Patient has a qSOFA score of 0- Negative Sepsis Screen. Triage Assessment: 05:26 General: Appears ill, Behavior is appropriate for age, cooperative. Pain: Location: km epigastric area Pain currently is 7 out of 10 on a pain scale. Quality of pain is described as squeezing. HIV screening NA for this visit Offered previously. GI: Reports epigastric pain, nausea, vomiting. 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 omeprazole 40 mg oral cpDR 1 cap once daily (Last dose: 12/23/2016) 2. Sertraline 100 mg daily (Last dose: 12/23/2016) 3. promethazine 25 mg Oral tab 1 tab 2 times per day (Last dose: 12/24/2016) 4. Percocet 5-325 mg Oral tab 1 tab every 4 hours (Last dose: 12/23/2016) - PMHx: Anxiety; Migraine Headaches; - PSHx: Multiple laparoscopies for endometriosis; Hysterectomy; ; Gastric Bypass (October 2016); - Social history: Smoking status: Patient states former smoker of tobacco. No barriers to communication noted, The patient speaks fluent Khmer, Speaks appropriately for age. - Family history: Not pertinent. - : The pt / caregiver states he / she is not on anticoagulants. Home medication list is obtained from the patient, IMT import data. - Exposure Risk Screening:: None identified. Screenin:51 Screening information is obtained from the patient. Fall risk: No risks identified. af2 Assistance ADL's: requires no assistance with activities of daily living. Abuse/DV Screen: The patient / caregiver reports he/she is: not in a situation that causes fear, pain or injury. Nutritional screening: No deficits noted. Advance Directives: There is no active DNR order. home support is adequate. Assessment: 06:52 General: Appears in no apparent distress, comfortable, Behavior is appropriate for age. af2 Pain: Location: abdomen Pain currently is 7 out of 10 on a pain scale. Neurological: Level of Consciousness is awake, alert, obeys commands. Respiratory: Airway is patent Respiratory effort is even, unlabored. GI: Abdomen is obese, Bowel sounds present X 4 quads. Abd is tender to palpation X 4 quads. Reports nausea, vomiting. Derm: Skin is pale. 07:48 Adult Sepsis Screening: The patient does not have new or worsening altered mentation. js13 Patient's respiratory rate is less than 22. Systolic blood pressure is greater than 100. Patient has a qSOFA score of 0- Negative Sepsis Screen. General: Appears in no apparent distress, comfortable, Behavior is appropriate for age. Pain: Pain currently is 3 out of 10 on a pain scale. Neurological: Level of Consciousness is awake, alert, obeys commands. Respiratory: Airway is patent Respiratory effort is even, unlabored. GI: Abdomen is obese, Bowel sounds present X 4 quads. Abd is soft Abd is tender to palpation Reports nausea. Derm: Skin is pink, warm & dry. 08:52 General: Appears in no apparent distress, Behavior is appropriate for age, cooperative. js13 Pain: Location: abdomen Pain currently is 4 out of 10 on a pain scale. Neurological: No deficits noted. Level of Consciousness is awake, alert. Respiratory: Airway is patent Respiratory effort is even, unlabored. GI: Abdomen is obese, Bowel sounds present X 4 quads. Abd is soft Abd is tender to palpation. Derm: Skin is pink, warm & dry. 09:47 Adult Sepsis Screening: The patient does not have new or worsening altered mentation. js13 Patient's respiratory rate is less than 22. Systolic blood pressure is greater than 100. Patient has a qSOFA score of 0- Negative Sepsis Screen. General: Appears in no apparent distress, comfortable, Behavior is appropriate for age, cooperative. Pain: Location: abdomen Pain currently is 3 out of 10 on a pain scale. Neurological: Level of Consciousness is awake, alert. Neurological: Level of Consciousness is awake, alert, obeys commands. Respiratory: Airway is patent Respiratory effort is even, unlabored, Respiratory pattern is regular, symmetrical. GI: Abdomen is obese, Bowel sounds present X 4 quads. Abd is soft Abd is tender to palpation Reports nausea. Derm: Skin is pink, warm & dry. 10:38 General: Appears in no apparent distress, comfortable, Behavior is appropriate for age, js13 cooperative. Neurological: Level of Consciousness is awake, alert. Respiratory: Airway is patent Respiratory effort is even, unlabored, Respiratory pattern is regular, symmetrical. Derm: Skin is pink, warm & dry. 11:48 General: Report called to Kelsi Barrett RN at [facility] . js13 12:10 General: Appears in no apparent distress, Behavior is appropriate for age, reports of rs3 upper abdominal pain 7/10. ordered med morphine 2 mg IVP given with relief. ambulance crew in here with patient. report given.. Vital Signs: 05:26 BP 132 / 88; Pulse 120; Resp 20; Temp 97.3(O); Pulse Ox 97% on R/A; Weight 99.79 kg kmg1 (R); Height 5 ft. 6 in. (167.64 cm) (R); Pain 8/10; 07:48 BP 128 / 86; Pulse 102; Resp 16; Temp 97.5(O); Pulse Ox 98% on R/A; js13 08:15 Pain 4/10; js13 08:58 Pain 2/10; js13 09:26 Pain 3/10; js13 09:47 BP 134 / 86; Pulse 99; Resp 16; Temp 97.2(O); Pulse Ox 97% on R/A; js13 12:10 BP 116 / 62; Pulse 89; Resp 18; Temp 97.6(T); Pulse Ox 98% on R/A; Pain 7/10; rs3 05:26 Body Mass Index 35.51 (99.79 kg, 167.64 cm) [facility] Vitals: 05:26 Log In Time: December 24, 2016 at 05:17. [facility] ED Course: 05:19 Patient visited by Mj Macdonald Reg. pm4 05:19 Reid Magana is Private Physician. pm4 05:19 Patient moved to Waiting pm4 05:22 Triage Initiated kmg1 05:30 Charis Stoddard RN is Primary Nurse. kmg1 05:30 Patient moved to 11 km 05:41 Vish Walls DO is Attending Physician. cs11 05:41 Patient visited by Vish Walls DO. cs11 06:50 Patient visited by Charis Stoddard RN. af2 06:51 The patient / caregiver is instructed regarding the plan of care and ED course. Patient af2 has correct armband on for positive identification. Placed in gown. 06:51 Inserted saline lock: 20 gauge in left antecubital area and blood collected. The af2 patient tolerated the procedure well. 06:51 Missed attempts: 20 gauge X 2 Bleeding controlled, band aid applied, catheter tip af2 intact. 06:52 Patient visited by Charis Stoddard RN. af2 07:01 Attending Physician role handed off by Vish Walls DO ml 07:01 Mabel Shepard MD is Attending Physician. ml 07:02 Kelsi Pack RN is Primary Nurse. js13 07:48 Inserted saline lock: 18 gauge in right forearm The patient tolerated the procedure js13 well. No procedures done that require assistance. Labs drawn. (by ED staff). Sent per order to lab. 07:51 Patient visited by Kelsi Pack RN. js13 08:03 Primary Nurse role handed off by Charis Stoddard RN deg 08:54 Patient visited by Kelsi Pack RN. js13 08:58 Urine Culture Sent. js13 08:58 Urinalysis Sent. js13 09:49 Patient visited by Kelsi Pack RN. js13 10:08 CT ABD & PELVIS: IV and Oral Contrast Returned. EDMS 10:38 Patient visited by Kelsi Pack RN. js13 11:06 Thais Corona RN is Primary Nurse. rs3 13:24 [facility] Payment Agreement was scanned into [employer] and attached to record. az 14:36 T-Sheet-- Draft Copy was scanned into [employer] and attached to record. gb 14:36 Radiology Report was scanned into [employer] and attached to record. gb Administered Medications: 07:52 Drug: Diatrizoate Meglumine & Sodium 10 ml [diatrizoate meglumine and diat.sodium 66 js13 %-10 % oral solution (10 mL)] Route: PO; 07:53 Drug: ketorolac 30 mg [ketorolac 30 mg/mL (1 mL) injection solution (1 mL)] Route: IVP; js13 Site: right forearm; 08:15 Follow up: Pain 4/10 Adult; Response: Pain is unchanged, physician notified js13 07:53 Drug: Metoclopramide 10 mg [metoclopramide 5 mg/mL injection solution] Route: IV; Rate: js13 40 mg/hr; Infused Over: 15 mins; Site: right forearm; 07:54 Drug: NS 0.9% 1000 ml [sodium chloride 0.9 % intravenous solution] Route: IV; Rate: js13 bolus; Site: right forearm; 08:54 Follow up: IV Status: Completed infusion; IV Intake: 1000ml js13 08:40 Drug: morphine 4 mg [morphine 4 mg/mL intravenous cartridge (1 mL)] Route: IVP; Site: js13 right forearm; 08:58 Follow up: Pain 2/10 Adult; Response: Confirmed pt not driving.; Pain is decreased js13 08:54 Drug: NS 0.9% 1000 ml [sodium chloride 0.9 % intravenous solution] Route: IV; Rate: js13 bolus; Site: right forearm; 10:39 Follow up: IV Status: Completed infusion; IV Intake: 1000ml js13 09:07 Drug: morphine 4 mg [morphine 4 mg/mL intravenous cartridge (1 mL)] Route: IVP; Site: js13 right forearm; 09:26 Follow up: Pain 3/10 Adult; Response: Confirmed pt not driving.; Pain is decreased js13 Intake: 08:54 IV: 1000.00ml; Total: 1000.00ml. js13 10:39 IV: 1000.00ml; Total: 2000.00ml. js13 Order Results: Lab Order: CBC with Diff; SPEC'M 12/24/16 06:29 Test: WHITE BLOOD COUNT; Value: 6.5; Range: 4.0-10.0; Units: K/mm3; Status: F Test: RED BLOOD COUNT; Value: 4.82; Range: 4.00-5.40; Units: M/mm3; Status: F Test: HEMOGLOBIN; Value: 12.7; Range: 12.0-16.0; Units: g/dl; Status: F Test: HEMATOCRIT; Value: 40.9; Range: 36.0-47.0; Units: %; Status: F Test: MEAN CORPUSCULAR VOLUME; Value: 84.8; Range: 80.0-96.0; Units: fl; Status: F Test: MEAN CORPUSCULAR HEMOGLOBIN; Value: 26.4; Range: 27.0-33.0; Abnormal: Below low normal; Units: pg; Status: F Test: MEAN CORPUSCULAR HGB CONC; Value: 31.2; Range: 32.0-36.5; Abnormal: Below low normal; Units: g/dl; Status: F Test: RED CELL DISTRIBUTION WIDTH; Value: 14.6; Range: 11.5-14.5; Abnormal: Above high normal; Units: %; Status: F Test: PLATELET COUNT, AUTOMATED; Value: 211; Range: 150-450; Units: k/mm3; Status: F Test: NEUTROPHILS %; Value: 61.2; Range: 36.0-66.0; Units: %; Status: F Test: LYMPH %; Value: 30.5; Range: 24.0-44.0; Units: %; Status: F Test: MONO %; Value: 3.6; Range: 0.0-5.0; Units: %; Status: F Test: EOS %; Value: 3.2; Range: 0.0-3.0; Abnormal: Above high normal; Units: %; Status: F Test: BASO %; Value: 0.4; Range: 0.0-1.0; Units: %; Status: F Test: LARGE UNSTAINED CELL %; Value: 1.1; Range: 0.0-4.0; Units: %; Status: F Test: NEUTROPHILS #; Value: 4.0; Range: 1.8-7.7; Units: K/mm3; Status: F Test: LYMPH #; Value: 2.1; Range: 1.5-4.5; Units: K/mm3; Status: F Test: MONO #; Value: 0.2; Range: 0.0-0.8; Units: K/mm3; Status: F Test: EOS #; Value: 0.2; Range: 0.0-0.50; Units: K/mm3; Status: F Test: BASO #; Value: 0.0; Range: 0.0-0.2; Units: K/mm3; Status: F Test: LARGE UNSTAINED CELL #; Value: 0.1; Range: 0.0-0.4; Units: K/mm3; Status: F Lab Order: MED Profile; SPECM 12/24/16 06:29 Test: GLUCOSE, FASTING; Value: 75; Range: 70-105; Units: MG/DL; Status: F Test: BLOOD UREA NITROGEN; Value: 14; Range: 7-18; Units: MG/DL; Status: F Test: CREATININE FOR GFR; Value: 0.68; Range: 0.55-1.02; Units: MG/DL; Status: F Test: GLOMERULAR FILTRATION RATE; Value: > 60.0; Range: >60; Status: F Test: SODIUM LEVEL; Value: 141; Range: 136-145; Units: MEQ/L; Status: F Test: POTASSIUM SERUM; Value: 4.2; Range: 3.5-5.1; Units: MEQ/L; Status: F Test: CHLORIDE LEVEL; Value: 106; Range: 98-107; Units: MEQ/L; Status: F Test: CARBON DIOXIDE LEVEL; Value: 25; Range: 21-32; Units: MEQ/L; Status: F Test: ANION GAP; Value: 10; Range: 8-16; Units: MEQ/L; Status: F Test: CALCIUM LEVEL; Value: 8.9; Range: 8.5-10.1; Units: MG/DL; Status: F Test Note: ; Units are mL/min/1.73 m2 Chronic Kidney Disease Staging per NKF: Stage I & II GFR >=60 Normal to Mildly Decreased Stage III GFR 30-59 Moderately Decreased Stage IV GFR 15-29 Severely Decreased Stage V GFR <15 Very Little GFR Left ESRD GFR <15 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 Lab Order: Liver Profile; [facility] 12/24/16 06:29 Test: AST/SGOT; Value: 53; Range: 15-37; Abnormal: Above high normal; Units: U/L; Status: F Test: ALT/SGPT; Value: 30; Range: 12-78; Units: U/L; Status: F Test: ALKALINE PHOSPHATASE; Value: 84; Range: 45-117; Units: U/L; Status: F Test: BILIRUBIN,TOTAL; Value: 0.4; Range: 0.2-1.0; Units: MG/DL; Status: F Test: BILIRUBIN,DIRECT; Value: 0.2; Range: 0.0-0.2; Units: MG/DL; Status: F Test: TOTAL PROTEIN; Value: 8.3; Range: 6.4-8.2; Abnormal: Above high normal; Units: GM/DL; Status: F Test: ALBUMIN; Value: 3.5; Range: 3.2-5.2; Units: GM/DL; Status: F Test: ALBUMIN/GLOBULIN RATIO; Value: 0.73; Range: 1.00-1.93; Abnormal: Below low normal; Status: F Lab Order: Amylase; [facility] 12/24/16 06:29 Test: AMYLASE; Value: 33; Range: 25-115; Units: U/L; Status: F Lab Order: Lipase; [facility] 12/24/16 06:29 Test: LIPASE; Value: 283; Range: 73-393; Units: U/L; Status: F Lab Order: Urinalysis; [facility] 12/24/16 08:59 Test: APPEARANCE, URINE; Value: CLOUDY; Range: CLEAR; Abnormal: Above high normal; Status: F Test: COLOR, URINE; Value: CHARIS; Range: YELLOW; Status: F Test: PH,URINE; Value: 6.0; Range: 5.0-9.0; Units: UNITS; Status: F Test: SPECIFIC GRAVITY URINE AUTO; Value: 1.038; Range: 1.002-1.035; Status: F Test: PROTEIN, URINE AUTO; Value: 1+; Range: NEGATIVE; Abnormal: Above high normal; Units: mg/dL; Status: F Test: GLUCOSE, URINE (UA) AUTO; Value: NEGATIVE; Range: NEGATIVE; Units: mg/dL; Status: F Test: KETONE, URINE AUTO; Value: 2+; Range: NEGATIVE; Abnormal: Above high normal; Units: mg/dL; Status: F Test: UROBILINOGEN, URINE AUTO; Value: 2.0; Range: 0.0-2.0; Abnormal: Above high normal; Units: mg/dL; Status: F Test: BILIRUBIN, URINE AUTO; Value: 1+; Range: NEGATIVE; Abnormal: Above high normal; Status: F Test: NITRITE, URINE AUTO; Value: NEGATIVE; Range: NEGATIVE; Status: F Test: LEUKOCYTE ESTERASE, URINE AUTO; Value: TRACE; Range: NEGATIVE; Abnormal: Above high normal; Status: F Test: BLOOD, URINE BLOOD; Value: NEGATIVE; Range: NEGATIVE; Status: F Test: WBC, URINE AUTO; Value: 9; Range: 0-3; Abnormal: Above high normal; Units: /HPF; Status: F Test: RBC, URINE AUTO; Value: 9; Range: 0-3; Abnormal: Above high normal; Units: /HPF; Status: F Test: BACTERIA, URINE AUTO; Value: 1+; Range: NEGATIVE; Abnormal: Above high normal; Status: F Test: SQUAMOUS EPITHELIAL CELL UR AU; Value: 33; Range: 0-6; Units: /HPF; Status: F Test: MUCUS, URINE; Value: LARGE; Range: NEGATIVE; Status: F Test: HYALINE CAST, URINE AUTO; Value: 0; Range: 0-1; Units: /LPF; Status: F Lab Order: Urine Culture; SPEC'M 12/24/16 08:59 Test: URINE CULTURE; Value: <EXTERNAL COMMENT eCWMed> FULL REPORT IN LAB NOTES (eCW and Medent).; Status: F Test: URINE CULTURE; Value: URINE CULTURE RESULT NO GROWTH CLINICAL SIGNIFICANCE 1 ORGANISM; Status: F Radiology Order: CT ABD & PELVIS: IV and Oral Contrast Test: CT ABD & PELVIS: IV and Oral Contrast REASON FOR EXAMINATION: Abdomen Pain; CT study of the abdomen and pelvis with IV contrast:; ; 100 ml of Isovue 370 is given intravenously.; ; Comparison study December 19, 2016.; ; History: Abdominal pain. The patient gives a history of previous hysterectomy,; gastric bypass, and .; ; Findings: Preliminary digital elevator pilot radiograph shows an unremarkable bowel gas; pattern. There is atelectasis with air bronchograms again noted in the left; lower lobe and to a lesser extent the right lower lobe. Small quantity of; bilateral pleural fluid is seen left greater than right unchanged from the; December 19, 2016 study. There are sutures in the left upper quadrant post; gastric bypass. No focal hepatic lesion is seen. Spleen remains homogeneous in; texture, borderline in size, 13.2 cm. No adrenal lesion is seen. Pancreas is; unremarkable. The gallbladder is mildly distended. There is a small area of; residual fibrosis or inflammation in the peritoneal fat just beneath the inferior; margin of the liver adjacent to the hepatic flexure of the colon. This is; unchanged from December 19, 2016 study. There is a pigtail drainage catheter in; this location at the time of the December 04, [address] study. No recurrent; abscess is seen. There is no observable ascites today. Normal appendix is seen.; Uterus is surgically absent. A normal appearing left ovary is seen unchanged.; No retroperitoneal mass, adenopathy or free air is seen. No evidence of; obstruction. Kidneys enhance symmetrically and are morphologically intact.; ; Impression:; ; No evidence to suggest recurrent abscess or obstruction. No acute; intra-abdominal abnormality. Some postprocedure and post-drainage fibrosis is; seen in the subhepatic space. Borderline spleen size. The patient is status; post gastric bypass. Small amount of left pleural fluid and bilateral lower lobe; atelectatic changes are seen.; ; ; ; ; Signed by; Bryan Canales MD 12/24/2016 02:31 P; Outcome: 10:10 ER care complete, transfer ordered by Provider. 12:09 Discharge Assessment: patient administered narcotics - yes. Patient was admitted to the [address] or transferred to another facility. The following High Risk Discharge criteria are identified: None. Transferred to [facility]. by EMS ground [facility] ambulance report to accompanying personnel Ana and allen brito. Condition: stable. CT Study completed. Property :Personal belongings accompany Pt. 12:12 Patient left the ED. [facility] Signatures: Dispatcher [employer] EDMS Mabel Shepard MD MD ml Murray, Denise, Plumbing Hardware Assembler Unit deg Lucille Melgoza, RN RN km Loly Obregon, Reg Reg gb Thais Corona,RN RN rs3 Kelsi Pack,RN RN js13 Vish Walls, DO DO cs11 Charis Stoddard,RN RN af2 Ayah Spaulding Paul, Reg Reg pm4 Chart Complete MTDD
--- NOTE | 2016-12-26 13:14 | EDDOCDS ---
Physician Documentation [facility] Name: Luigi Lund Age: 36 yrs Sex: Female : 1980 Arrival Date: 12/24/2016 Time: 05:17 Bed 11 Private MD: Reid Magana P. Disposition: 12/24 10:10 Critical Care:. ml Disposition: 12/24/16 10:10 Transfer ordered to [facility]. Diagnosis is Generalized abdominal pain - vomiting. - Reason for transfer: Higher level of care. - Accepting physician is dr morton. - Condition is Stable. - Problem is new. - Symptoms are unchanged. Historical: - Allergies: Latex; No known drug Allergies; - Home Meds: 1. omeprazole 40 mg oral cpDR 1 cap once daily (Last dose: 12/23/2016) 2. Sertraline 100 mg daily (Last dose: 12/23/2016) 3. promethazine 25 mg Oral tab 1 tab 2 times per day (Last dose: 12/24/2016) 4. Percocet 5-325 mg Oral tab 1 tab every 4 hours (Last dose: 12/23/2016) - PMHx: Anxiety; Migraine Headaches; - PSHx: Multiple laparoscopies for endometriosis; Hysterectomy; ; Gastric Bypass (October 2016); - Social history: Smoking status: Patient states former smoker of tobacco. No barriers to communication noted, The patient speaks fluent Kyrgyz, Speaks appropriately for age. - Family history: Not pertinent. - : The pt / caregiver states he / she is not on anticoagulants. Home medication list is obtained from the patient, [place] import data. - Exposure Risk Screening:: None identified. 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 6 in. (167.64 cm) (R); Pain 8/10; 07:48 BP 128 / 86; Pulse 102; Resp 16; Temp 97.5(O); Pulse Ox 98% on R/A; js13 08:15 Pain 4/10; js13 08:58 Pain 2/10; js13 09:26 Pain 3/10; js13 09:47 BP 134 / 86; Pulse 99; Resp 16; Temp 97.2(O); Pulse Ox 97% on R/A; js13 12:10 BP 116 / 62; Pulse 89; Resp 18; Temp 97.6(T); Pulse Ox 98% on R/A; Pain 7/10; rs3 05:26 Body Mass Index 35.51 (99.79 kg, 167.64 cm) km MDM: 05:52 IV Saline Lock ordered. cs11 05:52 NS 0.9% 1000 ml IV at bolus once ordered. cs11 05:52 ketorolac 30 mg IVP once ordered. cs11 05:53 CBC with Diff Ordered. EDMS 05:53 MED Profile Ordered. EDMS 05:53 Liver Profile Ordered. EDMS 05:53 Amylase Ordered. EDMS 05:53 Lipase Ordered. EDMS 05:53 Urinalysis Ordered. EDMS 05:53 Urine Culture Ordered. EDMS 05:54 CT ABD & PELVIS: IV and Oral Contrast Ordered. EDMS 06:11 Diatrizoate Meglumine & Sodium Liquid 10 ml PO once; mix in 290cc of water; 1st cup at af2 0625, 2nd cup at 0655 ordered. 06:52 Metoclopramide 10 mg IV at 40 mg/hr once over 15 mins ordered. cs11 07:01 CBC with Diff Reviewed. ml 08:17 morphine 4 mg IVP every 30 minutes; Document pain score/vitals after each dose (Hold if ml SBP < 90mmHg) x2 ordered. 08:18 Misc. Nursing Order ordered. ml 08:54 NS 0.9% 1000 ml IV at bolus once ordered. js13 10:04 Liver Profile Reviewed. ml 10:04 Urinalysis Reviewed. ml 10:04 MED Profile Reviewed. ml 10:04 Amylase Reviewed. ml 10:04 Lipase Reviewed. ml 11:45 Financial registration complete. az 13:24 [facility] Payment Agreement was scanned into [employer] and attached to record. az 14:36 T-Sheet-- Draft Copy was scanned into [employer] and attached to record. gb 14:36 Radiology Report was scanned into [employer] and attached to record. gb Administered Medications: 07:52 Drug: Diatrizoate Meglumine & Sodium 10 ml [diatrizoate meglumine and diat.sodium 66 js13 %-10 % oral solution (10 mL)] Route: PO; 07:53 Drug: ketorolac 30 mg [ketorolac 30 mg/mL (1 mL) injection solution (1 mL)] Route: IVP; js13 Site: right forearm; 08:15 Follow up: Pain 4/10 Adult; Response: Pain is unchanged, physician notified js13 07:53 Drug: Metoclopramide 10 mg [metoclopramide 5 mg/mL injection solution] Route: IV; Rate: js13 40 mg/hr; Infused Over: 15 mins; Site: right forearm; 07:54 Drug: NS 0.9% 1000 ml [sodium chloride 0.9 % intravenous solution] Route: IV; Rate: js13 bolus; Site: right forearm; 08:54 Follow up: IV Status: Completed infusion; IV Intake: 1000ml 13 08:40 Drug: morphine 4 mg [morphine 4 mg/mL intravenous cartridge (1 mL)] Route: IVP; Site: js13 right forearm; 08:58 Follow up: Pain 2/10 Adult; Response: Confirmed pt not driving.; Pain is decreased 08:54 Drug: NS 0.9% 1000 ml [sodium chloride 0.9 % intravenous solution] Route: IV; Rate: js13 bolus; Site: right forearm; 10:39 Follow up: IV Status: Completed infusion; IV Intake: 1000ml 09:07 Drug: morphine 4 mg [morphine 4 mg/mL intravenous cartridge (1 mL)] Route: IVP; Site: js13 right forearm; 09:26 Follow up: Pain 3/10 Adult; Response: Confirmed pt not driving.; Pain is decreased 13 Critical Care Time: 10:10 Critical care time: Bedside Care: 90 minutes, Consultation: 20 minutes. Total time: 110 ml minutes Signatures: Dispatcher [employer] EDMabel Redding MD MD ml Garrison, Kelly, RN RN kmg1 Loly Obregon, Thais Bonilla RN RN rs3 Kelsi Pack RN RN js13 Vish Walls DO DO cs11 Charis StoddardRN RN af2 Ayah Spaulding The chart was reviewed and I authenticate all verbal orders and agree with the evaluation and treatment provided.Attachments: 13:24 [facility] Payment Agreement az 14:36 T-Sheet-- Draft Copy gb Chart Complete MTDD
== END 2016-12-24 12:12 | disposition short-term general hospital (02) ==
LOC: M ED 05:17
DX: R10.13 Epigastric pain (principal); R11.2 Nausea with vomiting, unspecified; Z98.890 Other specified postprocedural states; Z98.84 Bariatric surgery status; F41.9 Anxiety disorder, unspecified; G43.909 Migraine, unspecified, not intractable, without status migrainosus; Z79.899 Other long term (current) drug therapy; Z91.040 Latex allergy status; Z87.891 Personal history of nicotine dependence
CPT/HCPCS: 36415; 74177; 80048; 80076; 81001; 82150; 83690; 85025; 87086; 96361; 96374; 96375; 99291; 99292; J1885; J2765; Q9963; Q9967

== ENCOUNTER 2017-01-15 17:03 | Emergency (ER) | payer OTHER ==
[~2017-01-15] VITALS: Ht 167.6 cm; Wt 99.3 kg
[~2017-01-15 17:03] MED LIST changes: +SERT25TA PO; -SERT25TA85 PO
[2017-01-15] MEDS ORDERED: TYLE325C PO (17:37)
[2017-01-15] MEDS ORDERED: TPNINJ3 IV (17:37)
[2017-01-15] MEDS ORDERED: OXYC15TA76 PO (17:37)
[2017-01-15] MEDS ORDERED: IMIT50TA PO (17:42)
[2017-01-15] MEDS ORDERED: MORPHINE 4 MG/ML 1ML SYRINGE IV ONE (20:15)
[2017-01-15] MEDS ORDERED: METOCLOPRAMIDE INJ 10MG/2ML VIAL (J2765) IV ONE (20:15)
[2017-01-15] MEDS ORDERED: NS 1,000 ML IV ONE (20:15)
[2017-01-15] MEDS ORDERED: GASTROGRAFIN SOLUTION 30ML (Q9963) PO ONE ×3 (21:00→21:30)
[2017-01-15 21:10] LABS: BASO % 1.1 % (0.0-1.0); EOS % 1.7 % (0.0-3.0); LARGE UNSTAINED CELL # 0.1 K/mm3 (0.0-0.4); LARGE UNSTAINED CELL % 1.7 % (0.0-4.0); LYMPH # 0.7 K/mm3 (1.5-4.5); LYMPH % 21.2 % (24.0-44.0); MEAN CORPUSCULAR HGB CONC 30.6 g/dl (32.0-36.5); MONO # 0.2 K/mm3 (0.0-0.8); MONO % 5.2 % (0.0-5.0); NEUTROPHILS # 2.1 K/mm3 (1.8-7.7); NEUTROPHILS % 69.1 % (36.0-66.0); PLATELET COUNT, AUTOMATED 190 k/mm3 (150-450); RED CELL DISTRIBUTION WIDTH 14.7 % (11.5-14.5)
[2017-01-15 21:11] LABS: MEAN CORPUSCULAR VOLUME 108.1 fl (80.0-96.0)
[2017-01-15 21:12] LABS: ADD MORPHOLOGY? YES
[2017-01-15 21:58] LABS: HYPOCHROMASIA 1+
[2017-01-15] MEDS ORDERED: MORPHINE 2 MG/ML 1ML SYRINGE IV ONE (22:15)
[2017-01-15 22:41] LABS: ALBUMIN 2.9 GM/DL (3.2-5.2); ALBUMIN/GLOBULIN RATIO 0.76 (1.00-1.93); ALKALINE PHOSPHATASE 109 U/L (45-117); ALT/SGPT 32 U/L (12-78); ANION GAP 8 MEQ/L (8-16); AST/SGOT 47 U/L (15-37); BILIRUBIN,DIRECT 0.1 MG/DL (0.0-0.2); BILIRUBIN,TOTAL 0.2 MG/DL (0.2-1.0); BLOOD UREA NITROGEN 15 MG/DL (7-18); CALCIUM LEVEL 7.9 MG/DL (8.5-10.1); CARBON DIOXIDE LEVEL 24 MEQ/L (21-32); CHLORIDE LEVEL 108 MEQ/L (98-107); CREATININE FOR GFR 0.59 MG/DL (0.55-1.02); GLOMERULAR FILTRATION RATE > 60.0 (>60); GLUCOSE, FASTING 157 MG/DL (70-105); POTASSIUM SERUM 3.9 MEQ/L (3.5-5.1); SODIUM LEVEL 140 MEQ/L (136-145); TOTAL PROTEIN 6.7 GM/DL (6.4-8.2)
[2017-01-15] MEDS ORDERED: ISOVUE-370 76% 100ML VIAL (Q9967) As Ordered ONE (22:52)
--- NOTE | 2017-01-16 00:20 | REPUSA ---
CT of the abdomen and pelvis without contrast Clinical statement: Pain. Recent gastric bypass. Technique: Multiple axial CT images were obtained from the base of the lungs to the floor of the pelv is utilizing 5 mm axial slices after administration of oral contrast. Coronal and sagittal reconstruc tions were also obtained. Comparison: 12/19/2016. Findings: Chest: There is atelectasis and scarring in the lower lungs bilaterally. Abdomen: The kidneys are normal in size bilaterally. There is no evidence of hydronephrosis or nephro lithiasis. The liver, spleen, pancreas, gallbladder and adrenal glands are unremarkable. The aorta de monstrates normal caliber and contour. There is no abdominal lymphadenopathy or ascites. Gastric bypa ss changes are noted. Pelvis: The bowel is unremarkable, with no obstructive or inflammatory changes. The appendix is aguila l. The urinary bladder is within normal limits. There is no pelvic lymphadenopathy or ascites. The ot her pelvic structures appear unremarkable. Bones: There are no suspicious osseous abnormalities seen. Impression: 1. No acute findings to explain the patient's pain. 2. Surgical changes from gastric bypass are grossly intact. 3. Mild atelectasis is seen at the lung bases bilaterally.
[2017-01-16] MEDS ORDERED: PERCOCET 5MG/325MG TAB PO ONE (01:15)
[2017-01-16 01:40] VITALS: BP 118/73
--- NOTE | 2017-01-16 10:50 | ECGEPIP ---
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
== END 2017-01-16 02:03 | disposition home or self-care (01) ==
LOC: M ED 20:16
DX: R10.9 Unspecified abdominal pain (principal); Z98.84 Bariatric surgery status; Z91.040 Latex allergy status; Z79.899 Other long term (current) drug therapy; Z87.891 Personal history of nicotine dependence
CPT/HCPCS: 36415; 74176; 80048; 80076; 81001; 83690; 85025; 93005; 96374; 96375; 96376; 99283; J2765; Q9963; Q9967

== ENCOUNTER → 2017-01-17 | Outpatient (REF) | payer OTHER ==
[~2017-01-17] MED LIST changes: +IMIT50TA PO; +OXYC15TA76 PO; -SERT25TA PO; +SERT25TA85 PO; +TPNINJ3 IV; +TYLE325C PO
[2017-01-17 10:35] LABS: BASO % 0.3 % (0.0-1.0); EOS % 0.6 % (0.0-3.0); LARGE UNSTAINED CELL # 0.1 K/mm3 (0.0-0.4); LARGE UNSTAINED CELL % 1.8 % (0.0-4.0); LYMPH # 1.4 K/mm3 (1.5-4.5); LYMPH % 27.4 % (24.0-44.0); MEAN CORPUSCULAR HEMOGLOBIN 26.9 pg (27.0-33.0); MEAN CORPUSCULAR HGB CONC 31.5 g/dl (32.0-36.5); MONO # 0.2 K/mm3 (0.0-0.8); MONO % 4.6 % (0.0-5.0); NEUTROPHILS # 3.1 K/mm3 (1.8-7.7); NEUTROPHILS % 65.3 % (36.0-66.0); PLATELET COUNT, AUTOMATED 193 k/mm3 (150-450); WHITE BLOOD COUNT 4.7 K/mm3 (4.0-10.0)
[2017-01-17 10:57] LABS: ALBUMIN 3.1 GM/DL (3.2-5.2); ALBUMIN/GLOBULIN RATIO 0.78 (1.00-1.93); ALKALINE PHOSPHATASE 122 U/L (45-117); ALT/SGPT 34 U/L (12-78); ANION GAP 9 MEQ/L (8-16); AST/SGOT 46 U/L (15-37); BILIRUBIN,TOTAL 0.2 MG/DL (0.2-1.0); BLOOD UREA NITROGEN 17 MG/DL (7-18); CALCIUM LEVEL 8.2 MG/DL (8.5-10.1); CARBON DIOXIDE LEVEL 24 MEQ/L (21-32); CHLORIDE LEVEL 106 MEQ/L (98-107); CREATININE FOR GFR 0.49 MG/DL (0.55-1.02); GLOMERULAR FILTRATION RATE > 60.0 (>60); GLUCOSE, FASTING 128 MG/DL (70-105); MAGNESIUM LEVEL 1.9 MG/DL (1.8-2.4); PHOSPHORUS LEVEL 3.6 MG/DL (2.5-4.9); POTASSIUM SERUM 4.1 MEQ/L (3.5-5.1); SODIUM LEVEL 139 MEQ/L (136-145); TOTAL PROTEIN 7.1 GM/DL (6.4-8.2)
[2017-01-17 12:44] LABS: MEAN CORPUSCULAR VOLUME 85.6 fl (80.0-96.0)
== END ==
LOC: M LAB REF 10:13
PROVIDERS: ATTEND Physician Assistant
DX: E64.0 Sequelae of protein-calorie malnutrition (principal)

== ENCOUNTER → 2017-01-23 | Outpatient (REF) | payer OTHER ==
[~2017-01-23] MED LIST changes: +LORA-376; +LORA-376 PO; +OXYC-517 PO; +PROM25TA; +PROM25TA PO; +SERT25TA PO; -SERT25TA85 PO; +TYLE325T5 PO
[2017-01-23 16:02] LABS: BASO % 0.3 % (0.0-1.0); EOS # 0.1 K/mm3 (0.0-0.50); EOS % 1.9 % (0.0-3.0); LARGE UNSTAINED CELL # 0.1 K/mm3 (0.0-0.4); LYMPH # 2.3 K/mm3 (1.5-4.5); LYMPH % 36.1 % (24.0-44.0); MEAN CORPUSCULAR HEMOGLOBIN 26.7 pg (27.0-33.0); MEAN CORPUSCULAR HGB CONC 31.8 g/dl (32.0-36.5); MONO # 0.2 K/mm3 (0.0-0.8); MONO % 3.5 % (0.0-5.0); NEUTROPHILS # 3.6 K/mm3 (1.8-7.7); NEUTROPHILS % 57.1 % (36.0-66.0); PLATELET COUNT, AUTOMATED 219 k/mm3 (150-450); RED CELL DISTRIBUTION WIDTH 14.5 % (11.5-14.5); WHITE BLOOD COUNT 6.3 K/mm3 (4.0-10.0)
[2017-01-23 16:16] LABS: ALBUMIN 3.1 GM/DL (3.2-5.2); ALBUMIN/GLOBULIN RATIO 0.78 (1.00-1.93); ALKALINE PHOSPHATASE 118 U/L (45-117); ALT/SGPT 35 U/L (12-78); ANION GAP 9 MEQ/L (8-16); AST/SGOT 50 U/L (15-37); BILIRUBIN,TOTAL 0.4 MG/DL (0.2-1.0); BLOOD UREA NITROGEN 19 MG/DL (7-18); CALCIUM LEVEL 8.6 MG/DL (8.5-10.1); CARBON DIOXIDE LEVEL 28 MEQ/L (21-32); CHLORIDE LEVEL 105 MEQ/L (98-107); CREATININE FOR GFR 0.54 MG/DL (0.55-1.02); GLOMERULAR FILTRATION RATE > 60.0 (>60); GLUCOSE, FASTING 70 MG/DL (70-105); MAGNESIUM LEVEL 2.2 MG/DL (1.8-2.4); POTASSIUM SERUM 4.1 MEQ/L (3.5-5.1); SODIUM LEVEL 142 MEQ/L (136-145); TOTAL PROTEIN 7.1 GM/DL (6.4-8.2)
== END ==
LOC: M LAB REF 15:30
PROVIDERS: ATTEND Physician Assistant
DX: E64.0 Sequelae of protein-calorie malnutrition (principal)

== ENCOUNTER 2017-01-24 13:38 | Inpatient (IN) | payer OTHER ==
[~2017-01-24] VITALS: Ht 167.6 cm; Wt 102.3 kg
[~2017-01-24 13:38] MED LIST changes: -LORA-376; -LORA-376 PO; -OXYC-517 PO; -PROM25TA; -PROM25TA PO; -TYLE325T5 PO
[2017-01-24] MEDS ORDERED: LORA-376 (13:46)
[2017-01-24] MEDS ORDERED: PROM25TA (13:46)
[2017-01-24] MEDS ORDERED: TRIMETHOBENZAMIDE HCL INJ 200 MG/2 ML VIAL (J3250) IM ONE (14:30)
[2017-01-24] MEDS ORDERED: KETOROLAC 30 MG/ML VIAL (J1885) IV ONE (14:30)
[2017-01-24 14:47] LABS: BASO % 0.2 % (0.0-1.0); EOS # 0.2 K/mm3 (0.0-0.50); EOS % 2.6 % (0.0-3.0); LARGE UNSTAINED CELL # 0.1 K/mm3 (0.0-0.4); LARGE UNSTAINED CELL % 1.2 % (0.0-4.0); LYMPH # 2.6 K/mm3 (1.5-4.5); LYMPH % 34.4 % (24.0-44.0); MEAN CORPUSCULAR HEMOGLOBIN 27.9 pg (27.0-33.0); MEAN CORPUSCULAR HGB CONC 33.6 g/dl (32.0-36.5); MEAN CORPUSCULAR VOLUME 83.1 fl (80.0-96.0); MONO # 0.3 K/mm3 (0.0-0.8); MONO % 3.5 % (0.0-5.0); NEUTROPHILS # 4.3 K/mm3 (1.8-7.7); NEUTROPHILS % 58.1 % (36.0-66.0); PLATELET COUNT, AUTOMATED 233 k/mm3 (150-450); RED CELL DISTRIBUTION WIDTH 14.8 % (11.5-14.5); WHITE BLOOD COUNT 7.3 K/mm3 (4.0-10.0)
--- NOTE | 2017-01-24 15:02 | ED PDOC ---
Provider Note PT PRESENTS C/O WORSENING PAIN TO THE RIGHT ARM/AXILLA AND CHEST OVER THE PAST 7 DAYS AND NOTICED REDNESS OF THIS ARM TODAY. PT HAS PICC LINE IN THIS ARM FOR THE PAST MONTH, MONITORED BY DR. KANG AT THE [facility]. PT STATES HAS THE PICC LINE FOR TPN SHE DOES NOT EAT. HAS NOT EATEN SINCE HER GASTRIC BYPASS SURGERY. STATES HER STOMACH "WILL NOT HANDLE FOOD." STATES HAS BEEN HAVING SWEATS/CHILLS BUT NO DOCUMENTED FEVER. STATES HAS A HOME HEALTH CARE NURSE THAT CHANGED HER DRESSINGS OVER THE PICC LINE ONCE A WEEK ON THURSDAYS. STATES THE NURSE NOTED SOME REDNESS TO THIS ARM TODAY WHEN SHE CAME TO CHANGE THE DRESSING. STATES NO MALFUNCTION OF PICC LINE, NO OCCLUSION, HAS USED TODAY WITHOUT DIFFICULTY. NEDRA NOLAN PA-C Jan 24, 2017 15:02
[2017-01-24 15:27] LABS: ERYTHROCYTE SEDIMENTATION RATE 41 mm/hr (0-20)
[2017-01-24] MEDS ORDERED: MORPHINE 4 MG/ML 1ML SYRINGE IV ONE ×2 (15:45→18:15)
[2017-01-24] MEDS ORDERED: MORPHINE 4 MG/ML 1ML SYRINGE IM ONE (15:45)
[2017-01-24 16:19] LABS: ANION GAP 10 MEQ/L (8-16); BLOOD UREA NITROGEN 19 MG/DL (7-18); CALCIUM LEVEL 8.7 MG/DL (8.5-10.1); CARBON DIOXIDE LEVEL 22 MEQ/L (21-32); CHLORIDE LEVEL 105 MEQ/L (98-107); CREATININE FOR GFR 0.64 MG/DL (0.55-1.02); GLOMERULAR FILTRATION RATE > 60.0 (>60); GLUCOSE, FASTING 83 MG/DL (70-105); POTASSIUM SERUM 4.3 MEQ/L (3.5-5.1); SODIUM LEVEL 137 MEQ/L (136-145)
--- NOTE | 2017-01-24 17:20 | REP ---
Right upper extremity duplex venous ultrasound: History: PICC line in the right arm, pain and swelling. Question thrombosis. Findings: There is a thrombus visualized around the PICC line in the right basilic vein. There is virtually occlusive thrombosis with lack of compressibility hypoechoic material and absence of color flow in the axillary vein. This extends into the subclavian vein. The cephalic and brachial veins are patent and compressible. Impression: There is right upper extremity venous thrombosis associated with the indwelling PICC line involving the right basilic vein surrounding the PICC line, and extending into the axillary and subclavian vein. Signed by Bryan Canales MD 01/25/2017 10:43 A
[2017-01-24] MEDS: SODIUM CHLORIDE 0.9% INJ 10 ML SYR IV PRN (18:32)
[2017-01-24] MEDS ORDERED: HEPARIN DRIP 25,000 UNITS in APPROPRIATE DILUENT 1 EA IV SCH ×2 (19:03→19:46)
[2017-01-24] MEDS ORDERED: HEPARIN SOD (PORCINE) 5000 UNITS/ML VIAL IV ONE (19:15)
[2017-01-24] MEDS ORDERED: HEPARIN SOD (PORCINE) 5000 UNITS/ML VIAL IV PRN ×2 (19:15→20:00)
--- NOTE | 2017-01-24 19:52 | HPEPDOC ---
Medical History and Physical Date of Admission 01/24/2017 History and Physical HISTORY AND PHYSICAL Date of admission: 01/24/2017 PCP: Dr. Magana Chief complaint: Right arm was swelling and becoming red HPI: 36-year-old female with migraines, endometriosis, lupus, fibromyalgia, 2 prior episodes of Rizo's palsy, obesity status post bariatric surgery in October 2016 who presented with erythema and swelling of her right arm, where she has a PICC that she receives TPN. She states that last she started to have some soreness in that arm, and over the next several days it just got worse and seemed to spread. She states that the arm got very red and blotchy, as well as swelled up. She called her home health nurse, who came and evaluated her and recommended that she go to the emergency department. She has been on TPN since October when she had her bariatric surgery and she receives it nightly for 12 hours. In the emergency department, they placed a new PICC line in her other arm. Past medical history: Migraines, endometriosis, lupus, fibromyalgia, 2 prior episodes of Rizo's palsy, obesity status post bariatric surgery in October 2016 Past surgical history: Bariatric surgery, , hysterectomy multiple laparoscopies for endometriosis Family history: Coronary artery disease, hypertension, gout Social history: She quit smoking in October 2015, and she denies any drug or alcohol use Allergies: Latex Review of systems: General: Negative for fever. Positive for chills Eyes: Negative for vision changes and ocular discharge ENT: Positive for sore throat, negative for nose bleed Cardiovascular: Negative for chest pain. Positive for palpitations Respiratory: Positive for shortness of breath ever since her surgery. Negative for cough. GI: Positive for nausea. Negative for vomiting. Positive for diarrhea Musculoskeletal: Positive for neck pain on the right side that extends from her right upper arm. Negative for back pain Skin: Negative for rash Neuro: Positive for headache, dizziness. Negative for numbness and tingling. Psych: Positive for depression. Negative for suicidal ideation Endocrine: Negative for polyuria : Negative For dysuria Heme: Negative for bruising and bleeding Home meds: See below Physical exam: Vital signs: Vital Sign - Last 24 Hours 01/24/17 01/24/17 01/24/17 01/24/17 13:39 15:52 17:44 18:36 Temp 98.6 98.2 Pulse 122 90 Resp 17 16 18 16 B/P 101/79 123/80 Pulse Ox 98 98 96 O2 Delivery Room Air Room Air Gen.: awake, alert, no acute distress Eyes: Extraocular movements intact, normal sclera ENT: Moist mucous membranes Cardiovascular: RRR, no murmurs rubs or gallops Lungs: clear to auscultation bilaterally, no rales, rhonchi, or wheeze Abdomen: Soft, NT/ND, normal BS Musculoskeletal: normal range of motion Extremities: No peripheral edema of BLE; RUE is swollen and erythematous; right radial and ulnar pulses are intact Neuro: alert and oriented 3, normal speech, no focal deficits Psych: Normal mood with congruent affect Labs and radiology: See below CBC, BMP are unremarkable Vascular ultrasound shows a right DVT in the basilic vein extending into the axillary and subclavian ESR and CRP are both mildly elevated Assessment and plan: 36-year-old female with migraines, endometriosis, lupus, fibromyalgia, 2 prior episodes of Rizo's palsy, obesity status post bariatric surgery in October 2016 who is admitted with a right upper extremity DVT associated with her PICC line. 1. Right upper extremity DVT associated with PICC line: I have discussed this DVT with Dr. Fitzpatrick, who has reviewed the images. He feels that it is not in the best interest of the patient to attempt to remove the PICC line at this time. Rather, he recommends that we heparinize the patient for several days, at which time, he will reevaluate and will remove the PICC line if he feels it is safe to do so at that time. The patient does not have any fever or white count, but blood cultures have been collected peripherally and from the PICC line. 2. Obesity status post recent bariatric surgery: The patient has been on TPN for nutrition since October. She states that she does take medication by mouth , but she does not take any food by mouth. We will continue her TPN on the same schedule as her home schedule in the new PICC line. Additionally, she and her both note to me, that she was given Ativan and oxycodone after the surgery. She states that she still has a little bit of the Ativan left at home. She states that her bariatric nurse practitioner has been trying to wean her off of the oxycodone. She states that last week, she experienced mild withdrawals, and the nurse practitioner gave her some more oxycodone, but the overall goal is to wean her off. We will continue her current home dose of oxycodone, but will not prescribe her any more discharge. 3. Lupus and fibromyalgia: Continue the patient's home Zoloft and trazodone. 4. Migraines: Continue home Imitrex. DVT prophylaxis: Heparin drip Dispo: admit as an inpatient to the service of Dr. Belgica Hoyt CODE STATUS: Full code Vital Signs See above Laboratory Data Labs 24H Laboratory Tests 2 01/24/17 14:40: White Blood Count 7.3, Red Blood Count 4.72, Hemoglobin 13.2, Hematocrit 39.3, Mean Corpuscular Volume 83.1, Mean Corpuscular Hemoglobin 27.9, Mean Corpuscular Hemoglobin Concent 33.6, Red Cell Distribution Width 14.8H, Platelet Count 233, Neutrophils (%) (Auto) 58.1, Lymphocytes (%) (Auto) 34.4, Monocytes (%) (Auto) 3.5, Eosinophils (%) (Auto) 2.6, Basophils (%) (Auto) 0.2, Neutrophils # (Auto) 4.3, Lymphocytes # (Auto) 2.6, Monocytes # (Auto) 0.3, Eosinophils # (Auto) 0.2, Basophils # (Auto) 0.0, Erythrocyte Sedimentation Rate 41H, Large Unclassified Cells # 0.1, Large Unclassified Cells % 1.2 01/24/17 15:52: Anion Gap 10, C-Reactive Protein, Quantitative 1.60H, Blood Urea Nitrogen 19H, Creatinine 0.64, Sodium Level 137, Potassium Level 4.3, Chloride Level 105, Carbon Dioxide Level 22, Calcium Level 8.7, Glomerular Filtration Rate > 60.0 01/24/17 19:24: CBC/BMP Laboratory Tests 01/24/17 14:40 Red Blood Count 4.72, Mean Corpuscular Volume 83.1, Mean Corpuscular Hemoglobin 27.9, Mean Corpuscular Hemoglobin Concent 33.6, Red Cell Distribution Width 14.8 H, Neutrophils (%) (Auto) 58.1, Lymphocytes (%) (Auto) 34.4, Monocytes (%) (Auto) 3.5, Eosinophils (%) (Auto) 2.6, Basophils (%) (Auto) 0.2, Neutrophils # (Auto) 4.3, Lymphocytes # (Auto) 2.6, Monocytes # (Auto) 0.3, Eosinophils # ( Auto) 0.2, Basophils # (Auto) 0.0 01/24/17 15:52 Calcium Level 8.7 Microbiology Microbiology 01/24/17 Blood Culture, Received Pending Home Medications Scheduled (TPN Electrolytes) 1 Inj Inj 1 INJ IV QHS Sertraline Hcl (Sertraline HCl) 25 Mg Tab 25 MG PO DAILY Trazodone HCl (Trazodone HCl) 50 Mg Tab 50 MG PO QHS Scheduled PRN (Tylenol) 325 Mg Cap 500 MG PO PRN PRN PRN PAIN OR FEVER Oxycodone Hcl (Oxycodone HCl) 15 Mg Tab 5 MG PO Q6HP PRN PRN PAIN OR FEVER Sumatriptan Succinate (Imitrex) 50 Mg Tab 50 MG PO PRN PRN PRN HEADACHE OR PAIN Miscellaneous Medications Lorazepam (Lorazepam) 0.5 Mg Tab Promethazine HCl (Promethazine HCl) 25 Mg Tab Allergies Coded Allergies: Latex (Verified Allergy, Mild, HIVES, 01/15/17) JONI HERNÁNDEZ Jan 24, 2017 19:52
[2017-01-24] MEDS ORDERED: OXYC-517 PO (20:07)
[2017-01-24] MEDS ORDERED: LORA-376 PO (20:07)
[2017-01-24] MEDS ORDERED: TYLE325T5 PO (20:07)
[2017-01-24] MEDS ORDERED: PROM25TA PO (20:07)
[2017-01-24 21:34] VITALS: BP 121/84
[2017-01-24] MEDS: SERTRALINE HCL 25 MG TABLET PO SCH (22:02)
[2017-01-24] MEDS: traZODone 50 MG TAB PO SCH (22:02)
[2017-01-24] MEDS: oxyCODONE 5MG TAB PO PRN (22:03)
[2017-01-24] MEDS: [UNRECOGNIZED DRUG - OTHER] IV SCH (22:42)
[2017-01-25] MEDS: oxyCODONE 5MG TAB PO PRN ×5 (02:29→23:06)
[2017-01-25 06:00] VITALS: BP 132/65
[2017-01-25] MEDS: ACETAMINOPHEN TAB 650MG DOSE (2X325MG) PO PRN (06:02)
[2017-01-25 08:35] LABS: BASO % 0.3 % (0.0-1.0); EOS # 0.2 K/mm3 (0.0-0.50); EOS % 2.4 % (0.0-3.0); LARGE UNSTAINED CELL # 0.1 K/mm3 (0.0-0.4); LYMPH # 2.3 K/mm3 (1.5-4.5); LYMPH % 34.7 % (24.0-44.0); MEAN CORPUSCULAR HEMOGLOBIN 27.1 pg (27.0-33.0); MEAN CORPUSCULAR HGB CONC 31.7 g/dl (32.0-36.5); MEAN CORPUSCULAR VOLUME 85.3 fl (80.0-96.0); MONO # 0.3 K/mm3 (0.0-0.8); MONO % 4.1 % (0.0-5.0); NEUTROPHILS # 3.7 K/mm3 (1.8-7.7); NEUTROPHILS % 57.6 % (36.0-66.0); PLATELET COUNT, AUTOMATED 214 k/mm3 (150-450); RED CELL DISTRIBUTION WIDTH 14.9 % (11.5-14.5); WHITE BLOOD COUNT 6.3 K/mm3 (4.0-10.0)
[2017-01-25 08:52] LABS: ANION GAP 8 MEQ/L (8-16); BLOOD UREA NITROGEN 23 MG/DL (7-18); CARBON DIOXIDE LEVEL 23 MEQ/L (21-32); CHLORIDE LEVEL 107 MEQ/L (98-107); CREATININE FOR GFR 0.56 MG/DL (0.55-1.02); GLOMERULAR FILTRATION RATE > 60.0 (>60); GLUCOSE, FASTING 147 MG/DL (70-105); MAGNESIUM LEVEL 2.2 MG/DL (1.8-2.4); POTASSIUM SERUM 4.8 MEQ/L (3.5-5.1); SODIUM LEVEL 138 MEQ/L (136-145)
[2017-01-25] MEDS: ONDANSETRON 4 MG TAB (S0181) PO PRN ×2 (11:02→20:01)
[2017-01-25] MEDS: SODIUM CHLORIDE 0.9% INJ 10 ML SYR IV PRN (11:03)
--- NOTE | 2017-01-25 12:07 | IPNPDOC ---
Subjective Date Seen The patient was seen on 01/25/17. Subjective Chief Complaint/HPI The patient is a 36-year-old female admitted with a reason for visit of Dvt Of Upper Extremity (Deep Vein Thrombosis). Events since last encounter complains of back pain and requesting fentanyl, cannot eat orally has abdominal pain and nausea and feels dizzy and sick when tries to eat orally., no fever or chills, no chest pain or shortness of breath. Objective Physical Examination General Exam: Positive: Alert, No Acute Distress Eye Exam: Positive: Conjunctiva & lids normal, EOMI, PERRLA, Negative: Sclera icteric ENT Exam: Positive: Atraumatic, Mucous membr. moist/pink, Pharynx Normal Neck Exam: Positive: Supple, Negative: JVD, thyromegaly Chest Exam: Positive: Clear to auscultation, Normal air movement Heart Exam: Positive: Normal S1, Normal S2, Rate Normal, Regular Rhythm, Negative: Murmurs, Rubs Abdomen Exam: Positive: Normal bowel sounds, Soft, Negative: Hepatospenomegaly, Tenderness Extremity Exam: Positive: Normal pulses, Negative: Clubbing, Cyanosis, Edema Skin Exam: Positive: Nl turgor and temperature, Negative: Breakdown, Rash Assessment /Plan Problems (1) DVT of upper extremity (deep vein thrombosis) Status: Acute Problem Text: related to picc line , will continue with heparin till picc line removed then will change to oral anticoagulant. (2) Status post gastric bypass for obesity Status: Chronic Problem Text: had surgery on oct 2016 (3) Post surgical complication Status: Chronic Problem Text: unable to tolerate oral food with rapid weight loss 60 ibs in 3 months so on TPN every night for 12 hours since middle of december. (4) Lupus Status: Chronic Problem Text: continue home meds. (5) Fibromyalgia Status: Chronic Problem Text: Has chronic pain requiring oxycodone 10 mg q4 hours, will start on oxycontin bid. continue trazodone and zoloft and ativan prn. (6) Migraine Status: Chronic Problem Text: continue imitrex prn. Plan/VTE VTE Prophylaxis Ordered?: Yes VS, I&O, 24H, Fishbone Vital Signs/I&O Vital Signs Date Time Temp Pulse Resp B/P Pulse Ox O2 Delivery O2 Flow Rate FiO2 01/25/17 11:41 20 01/25/17 06:00 97.0 93 132/65 96 Room Air I&O- Last 24 Hours up to 6 AM 01/25/17 05:59 Intake Total 360 ml Output Total 0 ml Balance 360 ml Laboratory Data 24H LABS Laboratory Tests 2 01/24/17 14:40: White Blood Count 7.3, Red Blood Count 4.72, Hemoglobin 13.2, Hematocrit 39.3, Mean Corpuscular Volume 83.1, Mean Corpuscular Hemoglobin 27.9, Mean Corpuscular Hemoglobin Concent 33.6, Red Cell Distribution Width 14.8H, Platelet Count 233, Neutrophils (%) (Auto) 58.1, Lymphocytes (%) (Auto) 34.4, Monocytes (%) (Auto) 3.5, Eosinophils (%) (Auto) 2.6, Basophils (%) (Auto) 0.2, Neutrophils # (Auto) 4.3, Lymphocytes # (Auto) 2.6, Monocytes # (Auto) 0.3, Eosinophils # (Auto) 0.2, Basophils # (Auto) 0.0, Erythrocyte Sedimentation Rate 41H, Large Unclassified Cells # 0.1, Large Unclassified Cells % 1.2 01/24/17 15:52: Anion Gap 10, C-Reactive Protein, Quantitative 1.60H, Blood Urea Nitrogen 19H, Creatinine 0.64, Sodium Level 137, Potassium Level 4.3, Chloride Level 105, Carbon Dioxide Level 22, Calcium Level 8.7, Glomerular Filtration Rate > 60.0 01/24/17 19:24: Activated Partial Thromboplast Time 46.2H 01/25/17 02:00: Activated Partial Thromboplast Time 88.4H 01/25/17 08:18: Activated Partial Thromboplast Time 83.6H, Anion Gap 8, White Blood Count 6.3, Red Blood Count 4.25, Hemoglobin 11.5L, Hematocrit 36.3, Mean Corpuscular Volume 85.3, Mean Corpuscular Hemoglobin 27.1, Mean Corpuscular Hemoglobin Concent 31.7L, Red Cell Distribution Width 14.9H, Platelet Count 214, Neutrophils (%) (Auto) 57.6, Lymphocytes (%) (Auto) 34.7, Monocytes (%) (Auto) 4.1, Eosinophils (%) (Auto) 2.4, Basophils (%) (Auto) 0.3, Neutrophils # (Auto) 3.7, Lymphocytes # (Auto) 2.3, Monocytes # (Auto) 0.3, Eosinophils # (Auto) 0.2 , Basophils # (Auto) 0.0, C-Reactive Protein, Quantitative 1.61H, Blood Urea Nitrogen 23H, Creatinine 0.56, Sodium Level 138, Potassium Level 4.8, Chloride Level 107, Carbon Dioxide Level 23, Calcium Level 8.0L, Glomerular Filtration Rate > 60.0, Large Unclassified Cells # 0.1, Large Unclassified Cells % 1.0, Magnesium Level 2.2 CBC/BMP Laboratory Tests 01/24/17 14:40 Red Blood Count 4.72, Mean Corpuscular Volume 83.1, Mean Corpuscular Hemoglobin 27.9, Mean Corpuscular Hemoglobin Concent 33.6, Red Cell Distribution Width 14.8 H, Neutrophils (%) (Auto) 58.1, Lymphocytes (%) (Auto) 34.4, Monocytes (%) (Auto) 3.5, Eosinophils (%) (Auto) 2.6, Basophils (%) (Auto) 0.2, Neutrophils # (Auto) 4.3, Lymphocytes # (Auto) 2.6, Monocytes # (Auto) 0.3, Eosinophils # ( Auto) 0.2, Basophils # (Auto) 0.0 01/24/17 15:52 Calcium Level 8.7 01/25/17 08:18 Red Blood Count 4.25, Mean Corpuscular Volume 85.3, Mean Corpuscular Hemoglobin 27.1, Mean Corpuscular Hemoglobin Concent 31.7 L, Red Cell Distribution Width 14.9 H, Neutrophils (%) (Auto) 57.6, Lymphocytes (%) (Auto) 34.7, Monocytes (%) (Auto) 4.1, Eosinophils (%) (Auto) 2.4, Basophils (%) (Auto) 0.3, Neutrophils # (Auto) 3.7, Lymphocytes # (Auto) 2.3, Monocytes # (Auto) 0.3, Eosinophils # ( Auto) 0.2, Basophils # (Auto) 0.0, Calcium Level 8.0 L Microbiology Microbiology 01/24/17 Blood Culture, Received Pending FERNANDO CARRILLO MD Jan 25, 2017 12:07
[2017-01-25] MEDS: oxyCODONE 15 MG CR TAB PO SCH ×2 (12:21→20:01)
[2017-01-25] MEDS: HEPARIN DRIP 25,000 UNITS in APPROPRIATE DILUENT 1 EA IV SCH (12:33)
[2017-01-25 14:00] VITALS: BP 115/78
--- NOTE | 2017-01-25 17:02 | REP ---
Procedure: PICC line insertion with Cecelia-Nina The procedure was performed under the direct supervision of Dr. Mcfarland. The risks and benefits of the procedure were explained to the patient and informed consent was obtained. The left basilic vein was localized using ultrasound guidance. The skin was prepped and draped in a sterile fashion. 2% lidocaine was used as a local anesthetic. Using ultrasound guidance the basilic vein was cannulated and a 0.018 guidewire was inserted and advanced to the SVC using fluoroscopic guidance. The needle was removed and a 5.5 [place]in dilator and peel-away sheath was inserted over the guide wire. A 5.5 [place] dual lumen catheter was cut to length of 38 cm. The dilator was removed and the catheter was inserted over the guide wire with the tip ending in the SVC. The peel-away sheath was removed and the catheter was flushed with heparinized saline as per Hospital protocol. The catheter was affixed to the skin and a sterile dressing was applied. The patient tolerated the procedure well and there were no immediate complications. 0.2 minutes of fluoro time was utilized for this procedure. Reviewed by CONSTANTINE Moore 01/25/2017 01:26 PSigned by Gianluca Mcfarland MD 01/25/2017 04:53 P
[2017-01-25] MEDS: PROMETHAZINE 25 MG TAB PO PRN (17:19)
[2017-01-25] MEDS: CEPACOL LOZENGE PO PRN (17:19)
[2017-01-25] MEDS: SERTRALINE HCL 25 MG TABLET PO SCH (20:00)
[2017-01-25] MEDS: traZODone 50 MG TAB PO SCH (20:01)
[2017-01-25] MEDS: [UNRECOGNIZED DRUG - OTHER] IV SCH (20:28)
[2017-01-25 22:00] VITALS: BP 116/68
[2017-01-26] MEDS: oxyCODONE 5MG TAB PO PRN ×4 (03:09→23:52)
[2017-01-26] MEDS: CEPACOL LOZENGE PO PRN (03:21)
[2017-01-26] MEDS: LORazepam 0.5 MG TAB PO PRN ×3 (03:23→20:00)
[2017-01-26 05:53] LABS: BASO % 0.3 % (0.0-1.0); EOS # 0.1 K/mm3 (0.0-0.50); EOS % 1.7 % (0.0-3.0); LARGE UNSTAINED CELL # 0.1 K/mm3 (0.0-0.4); LARGE UNSTAINED CELL % 1.9 % (0.0-4.0); LYMPH # 2.2 K/mm3 (1.5-4.5); LYMPH % 39.2 % (24.0-44.0); MEAN CORPUSCULAR HEMOGLOBIN 26.7 pg (27.0-33.0); MEAN CORPUSCULAR HGB CONC 31.7 g/dl (32.0-36.5); MEAN CORPUSCULAR VOLUME 84.3 fl (80.0-96.0); MONO # 0.2 K/mm3 (0.0-0.8); MONO % 4.1 % (0.0-5.0); NEUTROPHILS # 2.9 K/mm3 (1.8-7.7); NEUTROPHILS % 52.8 % (36.0-66.0); PLATELET COUNT, AUTOMATED 222 k/mm3 (150-450); RED CELL DISTRIBUTION WIDTH 14.2 % (11.5-14.5); WHITE BLOOD COUNT 5.5 K/mm3 (4.0-10.0)
[2017-01-26 06:00] VITALS: BP 110/65
[2017-01-26 06:00] LABS: ANION GAP 7 MEQ/L (8-16); BLOOD UREA NITROGEN 17 MG/DL (7-18); CALCIUM LEVEL 8.1 MG/DL (8.5-10.1); CARBON DIOXIDE LEVEL 25 MEQ/L (21-32); CHLORIDE LEVEL 106 MEQ/L (98-107); CREATININE FOR GFR 0.56 MG/DL (0.55-1.02); GLOMERULAR FILTRATION RATE > 60.0 (>60); GLUCOSE, FASTING 139 MG/DL (70-105); MAGNESIUM LEVEL 2.1 MG/DL (1.8-2.4); POTASSIUM SERUM 4.5 MEQ/L (3.5-5.1); SODIUM LEVEL 138 MEQ/L (136-145)
[2017-01-26] MEDS: HEPARIN DRIP 25,000 UNITS in APPROPRIATE DILUENT 1 EA IV SCH (06:07)
[2017-01-26] MEDS: oxyCODONE 15 MG CR TAB PO SCH ×2 (08:53→20:00)
[2017-01-26] MEDS: SODIUM CHLORIDE 0.9% INJ 10 ML SYR IV PRN (08:54)
[2017-01-26 09:42] VITALS: BP 129/62
[2017-01-26] MEDS: PROMETHAZINE 25 MG TAB PO PRN ×2 (09:55→15:57)
--- NOTE | 2017-01-26 11:14 | CR ---
DATE OF CONSULTATION: 01/25/2017 I am asked to see Mrs. Lund by the hospitalist service. Dr. Wilson called me late last night and went over the case and this is now the formal consult. Mrs. Lund is a 36-year-old white female who underwent gastric bypass surgery in October 2016. The exact surgery is not known and I have requested hospital records from [facility]. It was done at [facility]. Her pre procedure weight was 270 pounds. She had numerous complications, including hematoma, multiple abscesses. She has essentially now been left with hyperalimentation for nutrition. Her main complaint with regard to eating is that she has excruciating sharp, burning pain every time she eats food. She cannot swallow and retain water. She has no true dysphagia. She went back for lysis of adhesions after her gastric bypass surgery, with none of the interventions helping her. She is due to leave this area in 50 or so days to go to [place]. 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 This past , one week ago, she started to develop some dull pain in her right shoulder, which then proceeded to radiate down to her elbow and forearm. She noted her arm yesterday becoming red and blotchy. She did not notice swelling per se. She presented to the emergency room where she was found to have a thrombus throughout the entire deep venous system of her arm from the basilic vein to the subclavian vein along the path of her indwelling peripherally inserted central catheter (PICC) line. The PICC line was thrombosed. A left sided PICC line was then placed, and I was called to opine on her upper extremity clot on the right side and the presence of the PICC line. In fact, I was asked to remove the PICC line last night. My instructions to the hospitalist service was to fully anticoagulate her and we would follow her over the next few days with serial ultrasounds and when the clot was almost dissipated, we could then safely remove her indwelling PICC line. There is no evidence that the PICC line is infected. MEDICATIONS: Medications at home: - TPN - sertraline 25 mg daily - trazodone 50 mg at night - oxycodone 5 mg every 6 hours as needed for pain - Imitrex 50 mg as needed for headache - lorazepam 0.5 mg as needed - promethazine 25 mg as needed ALLERGIES: LATEX with hives. PAST MEDICAL HISTORY: 1. Lupus diagnosed last summer secondary to multiple arthritides in her large joints in her legs and arms. 2. Obesity. 3. Endometriosis for which she eventually underwent a hysterectomy after multiple laparoscopies to remove endometrial implants. 4. Migraine headaches. 5. Fibromyalgia. 6. History of Rizo's palsy. PAST SURGICAL HISTORY: 1. The above gastric bypass, bariatric surgery. 2. sections. 3. Hysterectomy. 4. Multiple laparoscopies for endometriosis. FAMILY HISTORY: Her mother has coronary artery disease, as well as hypertension and gout. TRAVEL HISTORY: She has traveled all over the [place], to [facility] and [facility], including [place], [place] and [place]. Her is in the . EXPOSURES: She has two cats. No dogs or birds. No exposure to tuberculosis. 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 HABITS: Smoked one half pack per day for 15 years of Camel cigarettes. She has an approximately 7 to 8 pack year history of smoking. Denies illicit drug use or alcohol use. REVIEW OF SYSTEMS: CONSTITUTIONAL: Without fever. Does feel chilly but does not have rigor. She has sweats and night sweats. EYES: Without diplopia. Without amaurosis fugax. Without prior jaundice. NOSE: Without epistaxis. MOUTH: Has her own teeth. RESPIRATORY: Has an occasional cough. Without sputum production. Does complain of shortness of breath, particularly at night where she wakes up short of breath. She does not have orthopnea and is able to lie flat without difficulty. No hemoptysis or chest pain. CARDIAC: Without prior myocardial infarctions. Does have some palpitations. Without intermittent claudication or peripheral edema. GASTROINTESTINAL: Has nausea with food intake. Also has constipation intermittently with diarrhea. Without melena or hematochezia or hematemesis. GENITOURINARY: Without dysuria or hematuria or prior history of renal stones. NEUROLOGIC: Without seizures, paresthesias, paralyses. Does have migraine headaches. PSYCHIATRIC: Is being treated for depression. Without pathological psychoses or anxieties. LYMPHATICS: Without lumps or bumps in the neck, axilla or groin that she noted. HEMATOLOGIC: Without prolonged bleeding times. PHYSICAL EXAMINATION: GENERAL: Well developed, well nourished, obese female in no acute distress. VITAL SIGNS: Temperature is 97.0, pulse is 93 with regular rate and rhythm. Respiratory rate is 18 without the use of accessory muscles. She is 96% saturated on room air. Blood pressure is 132/65. EYES: Pupils are equal, round and reactive to light. Extraocular muscles intact. Sclerae nonicteric. NOSE: Without deformity. MOUTH: Shows mucous membranes to be pink and moist. Lips and commissures without lesions. Teeth are in good repair. NECK: Supple. There is no jugular venous distention (JVD). No subcutaneous emphysema. Trachea is midline. She has 2+ carotid upstrokes without bruits. There is no thyromegaly or lymphadenopathy. LUNGS: Show equal breath sounds on either side with normal vesicular sounds. Percussion note is full to the diaphragm. CARDIAC: Without murmurs, clicks, gallops or rubs. I cannot feel her point of maximum impulse (PMI). S1, S2 are normal. There are no subclavian bruits on either side. ABDOMEN: Soft, nontender except in the left upper quadrant where she is tender to deep palpation. Bowel sounds positive. I hear no aortic or renal bruits. EXTREMITIES: Her upper extremity shows a very subtle difference in diameter of her fingers with her right being greater than the left. She has 2+ radial pulses on either side. I do not see any evidence of the red splotchy rash that she had yesterday. NEUROLOGIC: Shows II through XII intact with gross motor and gross sensation intact. Gait is not tested. PSYCHIATRIC: Shows her to be awake and alert, oriented times three with appropriate mood and affect and conversational. LYMPHATICS: Do not show any cervical, supraclavicular, infraclavicular or axillary lymphadenopathy. INVESTIGATIONS: Her white count is 6.3 with a hemoglobin and hematocrit of 11.5 and 36.3, down from 13.2 and 33.3 yesterday. Platelet count is 214 and stable. Differential shows 57% neutrophils, 34% lymphocytes and 4% monocytes. There are no immature forms and no toxic granulations. ESR is 41. Chemistries show normal electrolytes with a BUN and creatinine of 23 and 0.56. Glucose of 147 and calcium of 8.0, magnesium 2.2. PTT is 83. There is no PT/INR recorded. There is no chest x-ray on her today. Her vascular ultrasound shows thrombus following the PICC line in the basilic vein, which extends in the subclavian vein. The x-ray image of her left PICC line placement shows PICC line in good place. Her chest x-ray shows possible high riding left diaphragm. Right chest wall is cut off. The left costophrenic angle is cut off. It looks as though she may have some plate atelectasis in the left lower lobe. IMPRESSION: 1. Right upper extremity deep vein thrombosis (DVT). 2. Indwelling PICC line on the right side. 3. TPN dependence. 4. Status post gastric bypass surgery with multiple complications. 5. Migraine headaches. 6. Lupus erythematosus. 7. Fibromyalgia. 8. Prior history of Rizo's palsy. 9. Morbid obesity. PLAN AND DISCUSSION: As far as her right upper extremity thrombus is concerned, we should place her on heparin, which she is already on. She should have a hypercoagulability workup to include factor V Leiden, [id number] thrombin mutation, antithrombin III, protein C, protein S, and homocysteine determinations. She does have a risk factor of prior surgery but that was back in October and this is a new finding over the last week. We will continue to follow along and I would suggest on Saturday that we obtain another vascular ultrasound of the deep veins of the upper extremity to look for regression of the thrombus.
--- NOTE | 2017-01-26 12:38 | IPNPDOC ---
Subjective Date Seen The patient was seen on 01/26/17. Subjective Chief Complaint/HPI The patient is a 36-year-old female admitted with a reason for visit of Dvt Of Upper Extremity (Deep Vein Thrombosis). Events since last encounter complains of pain and noduler swelling on the RUE just below the elbow seems like cord like superficial vein. also complains of bleeding from the PIC line port on the right. Objective Physical Examination General Exam: Positive: Alert, No Acute Distress Eye Exam: Positive: Conjunctiva & lids normal, EOMI, PERRLA, Negative: Sclera icteric ENT Exam: Positive: Atraumatic, Mucous membr. moist/pink, Pharynx Normal Neck Exam: Positive: Supple, Negative: JVD, thyromegaly Chest Exam: Positive: Clear to auscultation, Normal air movement Heart Exam: Positive: Normal S1, Normal S2, Rate Normal, Regular Rhythm, Negative: Murmurs, Rubs Abdomen Exam: Positive: Normal bowel sounds, Soft, Negative: Hepatospenomegaly, Tenderness Extremity Exam: Positive: Normal pulses, Negative: Clubbing, Cyanosis, Edema Skin Exam: Positive: Nl turgor and temperature, Negative: Breakdown, Rash Assessment /Plan Problems (1) DVT of upper extremity (deep vein thrombosis) Status: Acute Problem Text: related to picc line , will continue with heparin till picc line removed then will change to oral anticoagulant. rpt US upper extremities on saturday. coagulation work up ordered. (2) Status post gastric bypass for obesity Status: Chronic Problem Text: had surgery on oct 2016 and has lost 60 lbs in 3 months. (3) Post surgical complication Status: Chronic Problem Text: unable to tolerate oral food with rapid weight loss 60 ibs in 3 months so on TPN every night for 12 hours since middle december. (4) Lupus Status: Chronic Problem Text: continue home meds. (5) Fibromyalgia Status: Chronic Problem Text: Has chronic pain requiring oxycodone 10 mg q4 hours, will start on oxycontin bid. continue trazodone and zoloft and ativan prn. (6) Migraine Status: Chronic Problem Text: continue imitrex prn. Plan/VTE VTE Prophylaxis Ordered?: Yes VS, I&O, 24H, Fishbone Vital Signs/I&O Vital Signs Date Time Temp Pulse Resp B/P Pulse Ox O2 Delivery O2 Flow Rate FiO2 01/26/17 10:41 20 01/26/17 09:42 98.4 96 129/62 97 Room Air I&O- Last 24 Hours up to 6 AM 01/26/17 06:00 Intake Total 1356 ml Output Total 2050 ml Balance -694 ml Laboratory Data 24H LABS Laboratory Tests 2 01/26/17 05:37: Activated Partial Thromboplast Time 88.5H, Anion Gap 7L, White Blood Count 5.5, Red Blood Count 4.26, Hemoglobin 11.4L, Hematocrit 35.9L, Mean Corpuscular Volume 84.3, Mean Corpuscular Hemoglobin 26.7L, Mean Corpuscular Hemoglobin Concent 31.7L, Red Cell Distribution Width 14.2, Platelet Count 222, Neutrophils (%) (Auto) 52.8, Lymphocytes (%) (Auto) 39.2, Monocytes (%) (Auto) 4.1, Eosinophils (%) (Auto) 1.7, Basophils (%) (Auto) 0.3, Neutrophils # (Auto) 2.9, Lymphocytes # (Auto) 2.2, Monocytes # (Auto) 0.2, Eosinophils # (Auto) 0.1 , Basophils # (Auto) 0.0, C-Reactive Protein, Quantitative 1.68H, Blood Urea Nitrogen 17, Creatinine 0.56, Sodium Level 138, Potassium Level 4.5, Chloride Level 106, Carbon Dioxide Level 25, Calcium Level 8.1L, Glomerular Filtration Rate > 60.0, Large Unclassified Cells # 0.1, Large Unclassified Cells % 1.9, Magnesium Level 2.1 01/26/17 09:49: CBC/BMP Laboratory Tests 01/26/17 05:37 Calcium Level 8.1 L, Red Blood Count 4.26, Mean Corpuscular Volume 84.3, Mean Corpuscular Hemoglobin 26.7 L, Mean Corpuscular Hemoglobin Concent 31.7 L, Red Cell Distribution Width 14.2, Neutrophils (%) (Auto) 52.8, Lymphocytes (%) (Auto ) 39.2, Monocytes (%) (Auto) 4.1, Eosinophils (%) (Auto) 1.7, Basophils (%) ( Auto) 0.3, Neutrophils # (Auto) 2.9, Lymphocytes # (Auto) 2.2, Monocytes # (Auto ) 0.2, Eosinophils # (Auto) 0.1, Basophils # (Auto) 0.0 Microbiology Microbiology 01/24/17 Blood Culture - Preliminary, Resulted No growth after 24 hours . All specim... FERNANDO CARRILLO MD Jan 26, 2017 12:38
[2017-01-26 14:30] VITALS: BP 112/66
[2017-01-26] MEDS: [UNRECOGNIZED DRUG - OTHER] IV SCH (19:47)
[2017-01-26] MEDS: ONDANSETRON 4 MG TAB (S0181) PO PRN (20:00)
[2017-01-26] MEDS: traZODone 50 MG TAB PO SCH (20:00)
[2017-01-26] MEDS: SERTRALINE HCL 25 MG TABLET PO SCH (20:01)
[2017-01-26 22:00] VITALS: BP 119/60
[2017-01-27] MEDS: ACETAMINOPHEN TAB 650MG DOSE (2X325MG) PO PRN ×2 (03:05→17:33)
[2017-01-27] MEDS: HEPARIN DRIP 25,000 UNITS in APPROPRIATE DILUENT 1 EA IV SCH ×2 (03:06→17:41)
[2017-01-27] MEDS: PROMETHAZINE 25 MG TAB PO PRN ×3 (03:20→17:37)
[2017-01-27] MEDS: oxyCODONE 5MG TAB PO PRN ×2 (04:52→15:04)
[2017-01-27 06:00] VITALS: BP 115/60
[2017-01-27 06:32] LABS: BASO % 0.3 % (0.0-1.0); EOS # 0.1 K/mm3 (0.0-0.50); LARGE UNSTAINED CELL # 0.1 K/mm3 (0.0-0.4); LARGE UNSTAINED CELL % 1.5 % (0.0-4.0); LYMPH # 1.9 K/mm3 (1.5-4.5); LYMPH % 38.5 % (24.0-44.0); MEAN CORPUSCULAR HEMOGLOBIN 27.1 pg (27.0-33.0); MEAN CORPUSCULAR HGB CONC 31.9 g/dl (32.0-36.5); MEAN CORPUSCULAR VOLUME 84.8 fl (80.0-96.0); MONO # 0.3 K/mm3 (0.0-0.8); NEUTROPHILS # 2.6 K/mm3 (1.8-7.7); NEUTROPHILS % 52.6 % (36.0-66.0); PLATELET COUNT, AUTOMATED 216 k/mm3 (150-450); RED CELL DISTRIBUTION WIDTH 14.4 % (11.5-14.5)
[2017-01-27 06:53] LABS: ANION GAP 10 MEQ/L (8-16); BLOOD UREA NITROGEN 17 MG/DL (7-18); CALCIUM LEVEL 8.2 MG/DL (8.5-10.1); CARBON DIOXIDE LEVEL 24 MEQ/L (21-32); CHLORIDE LEVEL 105 MEQ/L (98-107); CREATININE FOR GFR 0.56 MG/DL (0.55-1.02); GLOMERULAR FILTRATION RATE > 60.0 (>60); GLUCOSE, FASTING 121 MG/DL (70-105); MAGNESIUM LEVEL 2.1 MG/DL (1.8-2.4); POTASSIUM SERUM 4.2 MEQ/L (3.5-5.1); SODIUM LEVEL 139 MEQ/L (136-145)
[2017-01-27] MEDS: oxyCODONE 15 MG CR TAB PO SCH ×2 (09:21→20:16)
[2017-01-27] MEDS: CEPACOL LOZENGE PO PRN (09:56)
[2017-01-27] MEDS ORDERED: ISOVUE-370 76% 100ML VIAL (Q9967) As Ordered ONE (10:12)
--- NOTE | 2017-01-27 10:50 | IPNPDOC ---
Subjective Date Seen The patient was seen on 01/27/17. Subjective Chief Complaint/HPI The patient is a 36-year-old female admitted with a reason for visit of Dvt Of Upper Extremity (Deep Vein Thrombosis). Events since last encounter Today also complaining of RLQ abdominal pain so ct abdomen and pelvis was ordered to evaluate her appendix, continues to have pain in the RUE. no fever or chills, no worsening of swelling or redness of that hand. no chest pain or shortness of breath. Continues to have intermittent nausea , no vomiting, has intermittent diarrhea. As per pateint's mon she was diagnosed to have Factor V Leiden when she was . However this was never followed up. Objective Physical Examination General Exam: Positive: Alert, No Acute Distress Eye Exam: Positive: Conjunctiva & lids normal, EOMI, PERRLA, Negative: Sclera icteric ENT Exam: Positive: Atraumatic, Mucous membr. moist/pink, Pharynx Normal Neck Exam: Positive: Supple, Negative: JVD, thyromegaly Chest Exam: Positive: Clear to auscultation, Normal air movement Heart Exam: Positive: Normal S1, Normal S2, Rate Normal, Regular Rhythm, Negative: Murmurs, Rubs Abdomen Exam: Positive: Normal bowel sounds, Soft, Negative: Hepatospenomegaly, Tenderness Extremity Exam: Positive: Normal pulses, Negative: Clubbing, Cyanosis, Edema Skin Exam: Positive: Nl turgor and temperature, Negative: Breakdown, Rash Assessment /Plan Problems (1) DVT of upper extremity (deep vein thrombosis) Status: Acute Problem Text: related to picc line , will continue with heparin till picc line removed then will change to oral anticoagulant. rpt US upper extremities on saturday. coagulation work up ordered. (2) Status post gastric bypass for obesity Status: Chronic Problem Text: had surgery on oct 2016 and has lost 60 lbs in 3 months. (3) Post surgical complication Status: Chronic Problem Text: unable to tolerate oral food with rapid weight loss 60 ibs in 3 months so on TPN every night for 12 hours since middle of december. (4) Lupus Status: Chronic Problem Text: continue home meds. (5) Fibromyalgia Status: Chronic Problem Text: Has chronic pain requiring oxycodone 10 mg q4 hours, will start on oxycontin bid. continue trazodone and zoloft and ativan prn. (6) Migraine Status: Chronic Problem Text: continue imitrex prn. Plan/VTE VTE Prophylaxis Ordered?: Yes VS, I&O, 24H, Fishbone Vital Signs/I&O Vital Signs Date Time Temp Pulse Resp B/P Pulse Ox O2 Delivery O2 Flow Rate FiO2 01/27/17 09:21 20 01/27/17 06:00 96.8 92 115/60 96 Room Air I&O- Last 24 Hours up to 6 AM 01/27/17 06:00 Intake Total 2899 ml Output Total 3000 ml Balance -101 ml Laboratory Data 24H LABS Laboratory Tests 2 01/27/17 04:59: Activated Partial Thromboplast Time 75.8H, Anion Gap 10, White Blood Count 5.0, Red Blood Count 4.10, Hemoglobin 11.1L, Hematocrit 34.8L, Mean Corpuscular Volume 84.8, Mean Corpuscular Hemoglobin 27.1, Mean Corpuscular Hemoglobin Concent 31.9L, Red Cell Distribution Width 14.4, Platelet Count 216, Neutrophils (%) (Auto) 52.6, Lymphocytes (%) (Auto) 38.5, Monocytes (%) (Auto) 5.0, Eosinophils (%) (Auto) 2.0, Basophils (%) (Auto) 0.3, Neutrophils # (Auto) 2.6, Lymphocytes # (Auto) 1.9, Monocytes # (Auto) 0.3, Eosinophils # (Auto) 0.1 , Basophils # (Auto) 0.0, C-Reactive Protein, Quantitative 1.38H, Blood Urea Nitrogen 17, Creatinine 0.56, Sodium Level 139, Potassium Level 4.2, Chloride Level 105, Carbon Dioxide Level 24, Calcium Level 8.2L, Glomerular Filtration Rate > 60.0, Large Unclassified Cells # 0.1, Large Unclassified Cells % 1.5, Magnesium Level 2.1 CBC/BMP Laboratory Tests 01/27/17 04:59 Calcium Level 8.2 L, Red Blood Count 4.10, Mean Corpuscular Volume 84.8, Mean Corpuscular Hemoglobin 27.1, Mean Corpuscular Hemoglobin Concent 31.9 L, Red Cell Distribution Width 14.4, Neutrophils (%) (Auto) 52.6, Lymphocytes (%) (Auto ) 38.5, Monocytes (%) (Auto) 5.0, Eosinophils (%) (Auto) 2.0, Basophils (%) ( Auto) 0.3, Neutrophils # (Auto) 2.6, Lymphocytes # (Auto) 1.9, Monocytes # (Auto ) 0.3, Eosinophils # (Auto) 0.1, Basophils # (Auto) 0.0 Microbiology Microbiology 01/24/17 Blood Culture - Preliminary, Resulted No Growth after 48 hours. All Specime... FERNANDO CARRILLO MD Jan 27, 2017 10:50
[2017-01-27] MEDS ORDERED: BISACODYL 10 MG SUPP PR PRN (11:30)
[2017-01-27] MEDS: LORazepam 0.5 MG TAB PO PRN (11:46)
[2017-01-27] MEDS: SENOKOT S TAB PO SCH ×2 (11:46→20:15)
--- NOTE | 2017-01-27 13:19 | IPN ---
DATE: 01/26/2017 Ms. Lund complains of more pain in her right upper extremity. There is a definite bluish tinge to it compared to her left arm. It is slightly swollen with a subtle loss of contour of the fingers. Her pain goes from her mid forearm up into her shoulder. Her vital signs show a Maximum temperature (t-max) of 98.4 with a heart rate that ranges between 96 and 90 with a regular rate and rhythm, respiratory rate of 16 to 18 without the use of accessory muscles, who is 94 to 97% saturated on room air. Blood pressure is ranging between 110/65 to 129/62. Her intake and output over the past 24 hours has been recorded as 1008 in and 1850 out for a negativity of 842 mL. She continues on heparin. I see hyperalimentation hanging but I do not see it recorded in the input and output. She has been recorded as taking 840 mL of fluid in. PHYSICAL EXAMINATION: LUNGS: Her lungs show normal vesicular sounds on either side with percussion note that is full to the diaphragm. She has some pain posteriorly on percussion on the inferior portion of the right hemithorax, however, when it press on her it also hurts and it looks to be musculoskeletal. CARDIAC EXAM: Without murmurs, clicks, gallops or rubs. I cannot feel her point of maximum impulse (PMI). S1, S2 are normal. ABDOMEN: Tender in the left upper and right lower quadrants. She has noticed right lower quadrant pain before. The epigastrium is also tender to deep palpation. Bowel sounds positive. I cannot feel any hepatomegaly through her obesity. EXTREMITIES: Show no pretibial edema. She has some vague calf tenderness on the right side; however, she has a negative Berto's sign. NECK: Supple. There is no jugular venous distention. No subcutaneous emphysema. Trachea is midline. MOUTH: Shows her mucous membranes to be pink and moist. Lips and commissures without lesions. There is no thrush. EYES: Show her pupils to be equal and reactive. Extraocular motion intact. Sclerae anicteric. NEUROLOGIC: Shows II through XII intact with gross motor and gross sensation intact. Gait is not tested. PSYCHIATRIC: Shows her to be awake and alert, oriented times three with appropriate mood and affect and conversational. Her white count today is 5.5 with a hemoglobin and hematocrit of 11.4 and 35.9, respectively. Platelet count is 222. Differential shows 62% neutrophils, 39% lymphocytes, 4% monocytes. There are no immature forms. No toxic granulations. Electrolytes are normal with a BUN and creatinine of 17 and 0.56, glucose of 139, calcium of 8.1, and a potassium of 2.1. IMPRESSION: 1. Deep vein thrombosis (DVT) of right upper extremity. 2. Indwelling peripherally inserted central catheter (PICC) line. 3. Dependent on TPN. 4. Status post a gastric bypass procedure of some type with major complications, unable to take in solid oral intake. 5. Migraine headaches. 6. Lupus erythematosus. 7. Fibromyalgia. 8. History of endometriosis, status post hysterectomy. PLAN AND DISCUSSION: She remains fully heparinized with a PTT of 88 seconds. I am going to wait until Saturday to obtain another Doppler ultrasound of her upper extremity looking for her DVT status. I am a bit concerned that she is having more pain and that there is a bluish tinge to her right arm that I did not notice yesterday. She has just subtle swelling and nothing more than she had yesterday. I would rather not pull the PICC line until the clot starts to resolve itself. I was expecting the medical service to do a hypercoagulability workup on her and I have not see it so therefore I have added those studies that I can do while she is on heparin and off Coumadin. That includes protein C and S, along with factor V Leiden and thrombin [id number] mutations. Her PTT has responded to heparin so it is highly unlikely she has an AT3 deficiency.
[2017-01-27 14:00] VITALS: BP 124/62
[2017-01-27] MEDS: SERTRALINE HCL 25 MG TABLET PO SCH (20:15)
[2017-01-27] MEDS: traZODone 50 MG TAB PO SCH (20:15)
[2017-01-27] MEDS: [UNRECOGNIZED DRUG - OTHER] IV SCH (20:16)
[2017-01-27 22:00] VITALS: BP 122/58
[2017-01-27 23:59] VITALS: BP 122/60
[2017-01-28] MEDS: oxyCODONE 5MG TAB PO PRN ×4 (00:03→17:55)
[2017-01-28] MEDS: LORazepam 0.5 MG TAB PO PRN ×3 (00:04→10:57)
[2017-01-28] MEDS: SUMAtriptan SUCCINATE 25 MG TAB PO PRN (03:19)
[2017-01-28] MEDS: CEPACOL LOZENGE PO PRN (04:11)
[2017-01-28] MEDS: PROMETHAZINE 25 MG TAB PO PRN ×2 (04:58→20:51)
--- NOTE | 2017-01-28 05:50 | REP ---
Right lower quadrant pain, possible appendicitis. COMPARISON: 01/16/2017, a noncontrast enhanced exam. CONTRAST UTILIZED: 100 mL Isovue 370. There are bibasilar opacities which are unchanged not only from the latest prior of 01/16/2017, but unchanged from lung base images obtained during abdominal and pelvic CT scanning of 12/24/2016. There are no pleural or pericardial effusions. The liver, gallbladder, spleen, pancreas, adrenal glands, and kidneys are within normal limits. The abdominal aorta and para-aortic regions are within normal limits. The bowel loops and their mesenteries are within normal limits. The appendix is well visualized and it is unremarkable. There is no abnormal enhancement, fatty infiltration of the mesoappendix, or free fluid in the right paracolic gutter. There is no free fluid or free air seen in the abdomen. Postoperative changes are seen in the left upper quadrant status quo. There is no evidence of an intra-abdominal mass or adenopathy. CT PELVIS: There is no free pelvic fluid or air. There is no pelvic mass or adenopathy. The pelvic bowel loops and their mesenteries are within normal limits. Bone window technique throughout the exam shows the osseous structures to be stable and intact. IMPRESSION: 1. Unchanged bibasilar lung opacities as described above. 2. No evidence of acute intra-abdominal or intrapelvic disease with findings as described above. 3. Other than technique, no significant change compared to the prior noncontrast enhanced CT of 01/16/2017. Signed by Cristi Ryan DO 01/28/2017 12:04 P
[2017-01-28 05:52] VITALS: BP 122/61
[2017-01-28 05:58] LABS: BASO % 0.2 % (0.0-1.0); EOS # 0.2 K/mm3 (0.0-0.50); EOS % 3.3 % (0.0-3.0); LARGE UNSTAINED CELL # 0.1 K/mm3 (0.0-0.4); LARGE UNSTAINED CELL % 1.4 % (0.0-4.0); LYMPH # 1.8 K/mm3 (1.5-4.5); LYMPH % 34.8 % (24.0-44.0); MEAN CORPUSCULAR HEMOGLOBIN 26.5 pg (27.0-33.0); MEAN CORPUSCULAR VOLUME 85.3 fl (80.0-96.0); MONO # 0.2 K/mm3 (0.0-0.8); NEUTROPHILS # 2.9 K/mm3 (1.8-7.7); NEUTROPHILS % 56.2 % (36.0-66.0); PLATELET COUNT, AUTOMATED 184 k/mm3 (150-450); RED CELL DISTRIBUTION WIDTH 14.3 % (11.5-14.5); WHITE BLOOD COUNT 5.2 K/mm3 (4.0-10.0)
[2017-01-28 06:00] VITALS: BP 122/61
[2017-01-28 07:23] LABS: ANION GAP 8 MEQ/L (8-16); BLOOD UREA NITROGEN 16 MG/DL (7-18); CALCIUM LEVEL 8.1 MG/DL (8.5-10.1); CARBON DIOXIDE LEVEL 26 MEQ/L (21-32); CHLORIDE LEVEL 104 MEQ/L (98-107); CREATININE FOR GFR 0.55 MG/DL (0.55-1.02); GLOMERULAR FILTRATION RATE > 60.0 (>60); GLUCOSE, FASTING 151 MG/DL (70-105); POTASSIUM SERUM 4.4 MEQ/L (3.5-5.1); SODIUM LEVEL 138 MEQ/L (136-145)
[2017-01-28] MEDS: oxyCODONE 15 MG CR TAB PO SCH ×2 (08:03→20:42)
[2017-01-28] MEDS: SODIUM CHLORIDE 0.9% INJ 10 ML SYR IV PRN (08:03)
[2017-01-28] MEDS: SENOKOT S TAB PO SCH ×2 (08:03→20:41)
--- NOTE | 2017-01-28 10:02 | REP ---
RIGHT UPPER EXTREMITY DUPLEX VENOUS ULTRASOUND: HISTORY: Status of right upper extremity DVT. Comparison study, January 24, 2017. Known PICC line associated venous thrombosis. FINDINGS: On today's examination, there is a short segment of occlusive DVT in the distal cephalic vein. There is minimal flow around the clot in the basilic vein which surrounds the PICC line. There is a segment of the basilic vein and brachial veins which could not be imaged due to a bandage. There is essentially occlusive venous thrombosis in the subclavian vein segment. This is similar to the prior study. IMPRESSION: Essentially occlusive venous thrombosis in the basilic vein, axillary, and subclavian vein and today, in the distal cephalic vein. PICC line associated. Findings were telephoned to the referring provider at the time of this dictation. Signed by Bryan Canales MD 01/28/2017 12:22 P
[2017-01-28] MEDS: HEPARIN DRIP 25,000 UNITS in APPROPRIATE DILUENT 1 EA IV SCH (10:58)
--- NOTE | 2017-01-28 11:29 | IPN ---
DATE: 01/27/2017 Ms. Lund still complains of right arm pain extending from the mid portion of her forearm all the way up to her shoulder. There is still a discernible difference in color although subtle and a discernible difference in the swelling of her fingers although subtle. She has had no fever or chills. She is also complaining of vague right lower quadrant abdominal pain which she has not had before. She has chronic epigastric and left upper quadrant pain. Her vital signs show a T-max of 98.9 with a heart rate that ranges between 95 and 92 with a regular rate and rhythm and respiratory rate of 16 to 20 without the use of accessory muscles who is 95-96% saturated on room air and has blood pressures ranging from 115/60 to 119/60. Her intake and output over the past 24 hours has been recorded at 2719 in and 3050 out for a negativity of 300 mL. This includes 420 mL in oral intake and 1963 mL in hyperalimentation. On physical examination, her lungs show normal vesicular sounds. She has a tender right inferior lateral hemithorax. This is manifested by tenderness to percussion and then tenderness to palpation. It feels musculoskeletal. She has normal vesicular sounds without wheezes, rhonchi or rales. Cardiac exam is without murmurs, clicks, gallops or rubs. I cannot feel her PMI. Abdomen shows vague right lower quadrant tenderness. There is no rigidity or rebound or guarding. Her epigastrium and left upper quadrant also show the same tenderness that she has had all along. The right lower quadrant tenderness is new and she does not complain of periumbilical pain. Extremities: No calf tenderness. Her upper extremity exam is noted in the introduction. Neck is supple. There is no jugular venous distention. No subcutaneous emphysema although she is tender to deep palpation in the supraclavicular fossa and the root of the neck on the right side. There are no subclavian bruits and no carotid bruits. She has 2+ radial pulses on both sides, equal and bilaterally. Mouth shows her mucous membranes to be pink and moist. Lips and commissures are without lesions. No thrush. Eyes show her pupils to be equal and reactive. Extraocular motor intact. Sclera anicteric. Neuro shows II through XII intact with gross motor and gross sensation intact. Gait is not tested. Psychiatric shows her to be awake and alert, oriented times three with appropriate mood and affect and conversational. Her white count today is 5.0 unchanged from yesterday with hemoglobin and hematocrit of 11.1 and 34.8 unchanged from yesterday with a platelet count of 216 and stable. Differential shows 52% neutrophils, 38% lymphocytes, 5% monocytes. There are no immature forms. No toxic granulations. Her electrolytes are normal with a BUN and creatinine of 17 and 0.56, glucose of 121 and calcium 8.2. Magnesium 2.1. Her C-reactive protein is gradually coming down to 1.38 from 1.68 yesterday. It is still elevated with upper limits of normal being 0.3. Her PTT today is 75.8 seconds. There is no chest x-ray on her today. IMPRESSION: 1. Right upper extremity deep venous thrombosis (DVT). 2. Indwelling PICC line on right side. 3. TPN dependence. 4. Status post gastric bypass surgery with multiple complications. 5. Migraine headaches. 6. Lupus erythematosus. 7. Fibromyalgia. 8. History of [place] Palsy. 9. Morbid obesity. 10. Right lower quadrant pain unexplained origin and new. PLAN AND DISCUSSION: The pain in her arm could be just secondary to a nonseptic phlebitis from inflammation of the vessels surrounding the clot. I will obtain an ultrasound of her right upper extremity tomorrow. She has now been on heparin approximately 3 days and I think that it is going to be safe to remove it. I am a bit concerned about the new right lower quadrant pain. She has no prior history of right lower quadrant pain. She still has her appendix. I will therefore obtain a CT scan of her abdomen to look for appendiceal inflammation. It is still rather low on my list of probabilities, however. Overall she is very difficult to stripper latex because she has pain with her fibromyalgia. Nonetheless, the upper extremity pain and the right lower quadrant pain looks to be new and real. She, of course, if continuing on her hyperalimentation. I have asked the nursing staff to include that in her inputs and outputs (Is and Os) which was done this morning.
--- NOTE | 2017-01-28 12:03 | IPNPDOC ---
Subjective Date Seen The patient was seen on 01/28/17. Subjective Chief Complaint/HPI The patient is a 36-year-old female admitted with a reason for visit of Dvt Of Upper Extremity (Deep Vein Thrombosis). Events since last encounter no new issues, PICC on the right dced. Continues to have pain and swelling on the RUE and also left upper extremity. no fever or chills, as chronic abdominal pain , did not have bowel movements yet. Objective Physical Examination General Exam: Positive: Alert, No Acute Distress Eye Exam: Positive: Conjunctiva & lids normal, EOMI, PERRLA, Negative: Sclera icteric ENT Exam: Positive: Atraumatic, Mucous membr. moist/pink, Pharynx Normal Neck Exam: Positive: Supple, Negative: JVD, thyromegaly Chest Exam: Positive: Clear to auscultation, Normal air movement Heart Exam: Positive: Normal S1, Normal S2, Rate Normal, Regular Rhythm, Negative: Murmurs, Rubs Abdomen Exam: Positive: Normal bowel sounds, Soft, Negative: Hepatospenomegaly, Tenderness Extremity Exam: Positive: Normal pulses, Negative: Clubbing, Cyanosis, Edema Skin Exam: Positive: Nl turgor and temperature, Negative: Breakdown, Rash Assessment /Plan Problems (1) DVT of upper extremity (deep vein thrombosis) Status: Acute Problem Text: related to picc line ,Old PICC line on the right removed Pateint may have factor V leiden. coagulation work up ordered. will start on coumadin . (2) Status post gastric bypass for obesity Status: Chronic Problem Text: had surgery on oct 2016 and has lost 60 lbs in 3 months. (3) Post surgical complication Status: Chronic Problem Text: unable to tolerate oral food with rapid weight loss 60 ibs in 3 months so on TPN every night for 12 hours since middle of december. (4) Lupus Status: Chronic Problem Text: continue home meds. (5) Fibromyalgia Status: Chronic Problem Text: Has chronic pain requiring oxycodone 10 mg q4 hours, will start on oxycontin bid. continue trazodone and zoloft and ativan prn. (6) Migraine Status: Chronic Problem Text: continue imitrex prn. Plan/VTE VTE Prophylaxis Ordered?: Yes VS, I&O, 24H, Fishbone Vital Signs/I&O Vital Signs Date Time Temp Pulse Resp B/P Pulse Ox O2 Delivery O2 Flow Rate FiO2 01/28/17 08:03 18 01/28/17 06:00 97.5 94 122/61 97 Room Air I&O- Last 24 Hours up to 6 AM 01/28/17 06:00 Intake Total 2393 ml Output Total 2000 ml Balance 393 ml Laboratory Data 24H LABS Laboratory Tests 2 01/28/17 05:47: Activated Partial Thromboplast Time 77.1H, White Blood Count 5.2, Red Blood Count 4.27, Hemoglobin 11.3L, Hematocrit 36.4, Mean Corpuscular Volume 85.3, Mean Corpuscular Hemoglobin 26.5L, Mean Corpuscular Hemoglobin Concent 31.0L, Red Cell Distribution Width 14.3, Platelet Count 184, Neutrophils (%) (Auto) 56.2, Lymphocytes (%) (Auto) 34.8, Monocytes (%) (Auto) 4.0, Eosinophils (%) ( Auto) 3.3H, Basophils (%) (Auto) 0.2, Neutrophils # (Auto) 2.9, Lymphocytes # ( Auto) 1.8, Monocytes # (Auto) 0.2, Eosinophils # (Auto) 0.2, Basophils # (Auto) 0.0, Large Unclassified Cells # 0.1, Large Unclassified Cells % 1.4 01/28/17 06:41: Anion Gap 8, C-Reactive Protein, Quantitative 1.19H, Blood Urea Nitrogen 16, Creatinine 0.55, Sodium Level 138, Potassium Level 4.4, Chloride Level 104, Carbon Dioxide Level 26, Calcium Level 8.1L, Glomerular Filtration Rate > 60.0, Magnesium Level 2.0 CBC/BMP Laboratory Tests 01/28/17 05:47 Red Blood Count 4.27, Mean Corpuscular Volume 85.3, Mean Corpuscular Hemoglobin 26.5 L, Mean Corpuscular Hemoglobin Concent 31.0 L, Red Cell Distribution Width 14.3, Neutrophils (%) (Auto) 56.2, Lymphocytes (%) (Auto) 34.8, Monocytes (%) ( Auto) 4.0, Eosinophils (%) (Auto) 3.3 H, Basophils (%) (Auto) 0.2, Neutrophils # (Auto) 2.9, Lymphocytes # (Auto) 1.8, Monocytes # (Auto) 0.2, Eosinophils # ( Auto) 0.2, Basophils # (Auto) 0.0 01/28/17 06:41 Calcium Level 8.1 L Microbiology Microbiology 01/24/17 Blood Culture - Preliminary, Resulted No Growth after 72 hours. All specime... FERNANDO CARRILLO MD Jan 28, 2017 12:03
[2017-01-28 14:00] VITALS: BP 131/79
[2017-01-28] MEDS: ONDANSETRON 4 MG TAB (S0181) PO PRN (17:55)
[2017-01-28] MEDS: [UNRECOGNIZED DRUG - OTHER] IV SCH (20:04)
[2017-01-28] MEDS: SERTRALINE HCL 25 MG TABLET PO SCH (20:41)
[2017-01-28] MEDS: traZODone 50 MG TAB PO SCH (20:41)
--- NOTE | 2017-01-28 21:29 | IPN ---
DATE: 01/28/2017 Ms. Lund today is still complaining of right arm pain from the middle of her forearm up to her shoulder. She also is complaining of some chest pain in the upper right hemithorax and last night complained of some shortness of breath. She does not have any chest pain with breathing, however. Her vital signs show a maximum temperature (T max) of 97.5 with a heart rate that ranges between 94 and 95 with a regular rate and rhythm, respiratory rate of 16 to 17 without the use of accessory muscles, who is 97% saturated on room air and whose blood pressure is ranging between 122/61 to 115/60. Her intake and output over the past 24 hours has been recorded as 2741 in and 1650 out for a positivity of 1000 mL. She has taken in 540 mL in oral intake. Most of her intake is from her hyperalimentation. PHYSICAL EXAMINATION: Her lungs show normal vesicular sounds. I hear no wheezes, rhonchi or rales. Percussion note is full to the diaphragm. She is not as tender when I percuss her in the right lower hemithorax than she was yesterday. Cardiac exam is without murmurs, clicks, gallops or rubs. I cannot feel her point of maximum impulse (PMI). S1, S2 are normal. Abdomen is soft but tender in the right lower quadrant and the left upper quadrant. CT scan done yesterday did not show any appendicitis. Bowel sounds are positive. I cannot feel any hepatomegaly beneath her obesity. Extremities show no pretibial edema. No calf tenderness. She has some slight swelling of the right extremity with a subtle color change. She is tender in the upper extremity and in particular, in the infraclavicular fossa. Her neck is only slightly tender. Skin is warm, dry and perfused without cyanosis or mottling, including that of the nail beds and the knees. Neck is supple. The neck itself is not all that painful, although there is some differential tenderness between the right and left sides. There is no jugular venous distention, no subcutaneous emphysema. Trachea is midline. Mouth shows her mucous membranes to be pink and moist. Lips and commissures without lesions. There is no thrush. Eyes show her pupils to be equal and reactive. Extraocular motions intact. Sclerae anicteric. Neurologic shows II-XII intact along with gross motor and gross sensation intact. Gait is not tested. Psychiatric shows her to be awake and alert, oriented times three with appropriate mood and affect and conversational. Her white count today is 5.2 with a hemoglobin and hematocrit of 11.3 and 36.4, respectively. Platelet count is 184 and stable and differential shows 56% neutrophils, 34% lymphocytes, 4% monocytes. There are no immature forms. No toxic granulations. Her electrolytes are normal with a BUN and creatinine of 16 and 0.55. Glucose is 151. Calcium is 8.1 with a magnesium of 2.0. Her C-reactive protein continues to decrease down to 1.19 from a maximum of 1.68 on 01/26/2017. There is no chest x-ray today on her. She underwent an ultrasound of her upper extremity today. She still has clot in the subclavian vein and the axillary vein. There is no longer any clot in the basilic vein. There is some also in the cephalic vein. IMPRESSION: 1. Deep vein thrombosis right upper extremity. 2. Indwelling peripherally inserted central catheter (PICC) line. 3. Nutritionally dependent on total parenteral nutrition (TPN). 4. 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 Unable to take solid oral intake. 5. Migraine headaches. 6. Lupus erythematosus. 7. Fibromyalgia. 8. History of endometriosis, status post hysterectomy. PLAN AND DISCUSSION: I will remove the PICC line today. I think the clot is fairly well stabilized and that it should not break off to create a pulmonary embolism. Her oxygen saturations have remained stable, and I do not think she has had a pulmonary embolism. It is very difficult to evaluate her with regard to pain and other symptomatology secondary to her anxiety. She has every reason to be anxious as she has been through a horrific postoperative course with major complications and still is not able to eat. Major coagulation studies are still pending. I would recommend that we convert her over to an oral anticoagulant today when she is heparinized. My prejudice is old-fashioned Coumadin.
[2017-01-28 22:00] VITALS: BP 140/72
[2017-01-29] MEDS: SUMAtriptan SUCCINATE 25 MG TAB PO PRN (01:23)
[2017-01-29] MEDS: oxyCODONE 5MG TAB PO PRN ×3 (01:27→17:50)
[2017-01-29] MEDS: CEPACOL LOZENGE PO PRN ×2 (01:52→21:18)
[2017-01-29] MEDS: HEPARIN DRIP 25,000 UNITS in APPROPRIATE DILUENT 1 EA IV SCH ×2 (03:37→21:00)
[2017-01-29] MEDS: PROMETHAZINE 25 MG TAB PO PRN ×3 (03:40→21:14)
[2017-01-29 06:00] VITALS: BP 120/67
[2017-01-29 07:13] LABS: BASO % 0.3 % (0.0-1.0); EOS # 0.1 K/mm3 (0.0-0.50); EOS % 1.8 % (0.0-3.0); LARGE UNSTAINED CELL # 0.1 K/mm3 (0.0-0.4); LARGE UNSTAINED CELL % 1.3 % (0.0-4.0); MEAN CORPUSCULAR HEMOGLOBIN 26.2 pg (27.0-33.0); MEAN CORPUSCULAR HGB CONC 30.8 g/dl (32.0-36.5); MEAN CORPUSCULAR VOLUME 85.3 fl (80.0-96.0); MONO # 0.3 K/mm3 (0.0-0.8); MONO % 4.2 % (0.0-5.0); NEUTROPHILS # 3.8 K/mm3 (1.8-7.7); NEUTROPHILS % 60.4 % (36.0-66.0); PLATELET COUNT, AUTOMATED 197 k/mm3 (150-450); RED CELL DISTRIBUTION WIDTH 14.4 % (11.5-14.5); WHITE BLOOD COUNT 6.2 K/mm3 (4.0-10.0)
[2017-01-29 07:17] LABS: ANION GAP 8 MEQ/L (8-16); BLOOD UREA NITROGEN 16 MG/DL (7-18); CARBON DIOXIDE LEVEL 25 MEQ/L (21-32); CHLORIDE LEVEL 104 MEQ/L (98-107); CREATININE FOR GFR 0.56 MG/DL (0.55-1.02); GLOMERULAR FILTRATION RATE > 60.0 (>60); GLUCOSE, FASTING 139 MG/DL (70-105); POTASSIUM SERUM 4.4 MEQ/L (3.5-5.1); SODIUM LEVEL 137 MEQ/L (136-145)
[2017-01-29] MEDS: oxyCODONE 15 MG CR TAB PO SCH ×2 (08:37→21:14)
[2017-01-29] MEDS: SENOKOT S TAB PO SCH ×2 (08:37→21:11)
[2017-01-29] MEDS: SODIUM CHLORIDE 0.9% INJ 10 ML SYR IV PRN (08:38)
[2017-01-29] MEDS ORDERED: ENOXAPARIN 100MG/1ML SYRINGE (J1650) SC SCH (09:00)
[2017-01-29] MEDS ORDERED: ISOVUE-370 76% 100ML VIAL (Q9967) As Ordered ONE (09:22)
[2017-01-29] MEDS: LORazepam 0.5 MG TAB PO PRN ×2 (09:47→21:11)
--- NOTE | 2017-01-29 10:05 | REP ---
CT of the chest CT pulmonary angiography: There are no comparison studies. The study is performed with injection of iodinated contrast through the patient's existing PICC line. There are no emboli in the pulmonary trunk or central pulmonary arteries. There are no emboli in the pulmonary artery lobe or segment branches. There is atelectasis in the lower lobes bilaterally. The upper lobes and middle lobe are unremarkable. The thoracic aorta is unremarkable. Cardiac size normal. There is no pericardial effusion. There is no mediastinal adenopathy or mass. There is no hilar or axillary adenopathy. The visualized upper abdominal contents are unremarkable. Impression: There is no pulmonary embolus. There is bilateral lower lobe atelectasis. Otherwise, negative CT study of the chest. Signed by Gianluca Zapata MD 01/29/2017 09:57 A
[2017-01-29 14:00] VITALS: BP 124/69
--- NOTE | 2017-01-29 14:42 | IPNPDOC ---
Subjective Date Seen The patient was seen on 01/29/17. Subjective Chief Complaint/HPI The patient is a 36-year-old female admitted with a reason for visit of Dvt Of Upper Extremity (Deep Vein Thrombosis). Events since last encounter pt seen and examined, complaining of chest and arm pain, Constitutional: Denies: Chills, Fever, Night Sweats Objective Physical Examination General Exam: Positive: Alert, No Acute Distress Eye Exam: Positive: Conjunctiva & lids normal, EOMI, PERRLA, Negative: Sclera icteric ENT Exam: Positive: Atraumatic, Mucous membr. moist/pink, Pharynx Normal Neck Exam: Positive: Supple, Negative: JVD, thyromegaly Chest Exam: Positive: Clear to auscultation, Normal air movement Heart Exam: Positive: Normal S1, Normal S2, Regular Rhythm, Tachycardic, Negative: Murmurs, Rubs Abdomen Exam: Positive: Normal bowel sounds, Soft, Negative: Hepatospenomegaly, Tenderness Extremity Exam: Positive: Normal pulses, Negative: Clubbing, Cyanosis, Edema Skin Exam: Positive: Nl turgor and temperature, Negative: Breakdown, Rash Assessment /Plan Problems (1) DVT of upper extremity (deep vein thrombosis) Status: Acute Problem Text: related to picc line ,Old PICC line on the right removed Patient may have factor V leiden. coagulation work up ordered. will switch to lovenox and coumadin today will consult pain clinic for pain control (2) Status post gastric bypass for obesity Status: Chronic Problem Text: had surgery on oct 2016 and has lost 60 lbs in 3 months. (3) Post surgical complication Status: Chronic Problem Text: unable to tolerate oral food with rapid weight loss 60 ibs in 3 months so on TPN every night for 12 hours since middle december. (4) Lupus Status: Chronic Problem Text: continue home meds. (5) Fibromyalgia Status: Chronic Problem Text: Has chronic pain requiring oxycodone 10 mg q4 hours, will start on oxycontin bid. continue trazodone and zoloft and ativan prn. (6) Migraine Status: Chronic Problem Text: continue imitrex prn. (7) Chest pain Status: Acute Problem Text: * EKG didn't show any ST changes * will order cardiac marker * CT angio was negative for PE * pain consult * pt had this pain for a few days but is getting worse now Plan/VTE VTE Prophylaxis Ordered?: Yes VS, I&O, 24H, [facility] Vital Signs/I&O Vital Signs Date Time Temp Pulse Resp B/P Pulse Ox O2 Delivery O2 Flow Rate FiO2 01/29/17 13:37 18 01/29/17 06:00 97.6 103 120/67 95 Room Air I&O- Last 24 Hours up to 6 AM 01/29/17 06:00 Intake Total 288 ml Output Total 950 ml Balance -662 ml Laboratory Data 24H LABS Laboratory Tests 2 01/29/17 06:43: Activated Partial Thromboplast Time 69.0H, Anion Gap 8, White Blood Count 6.2, Red Blood Count 4.40, Hemoglobin 11.6L, Hematocrit 37.6, Mean Corpuscular Volume 85.3, Mean Corpuscular Hemoglobin 26.2L, Mean Corpuscular Hemoglobin Concent 30.8L, Red Cell Distribution Width 14.4, Platelet Count 197, Neutrophils (%) (Auto) 60.4, Lymphocytes (%) (Auto) 32.0, Monocytes (%) (Auto) 4.2, Eosinophils (%) (Auto) 1.8, Basophils (%) (Auto) 0.3, Neutrophils # (Auto) 3.8, Lymphocytes # (Auto) 2.0, Monocytes # (Auto) 0.3, Eosinophils # (Auto) 0.1 , Basophils # (Auto) 0.0, C-Reactive Protein, Quantitative 1.02H, Blood Urea Nitrogen 16, Creatinine 0.56, Sodium Level 137, Potassium Level 4.4, Chloride Level 104, Carbon Dioxide Level 25, Calcium Level 8.0L, Glomerular Filtration Rate > 60.0, Large Unclassified Cells # 0.1, Large Unclassified Cells % 1.3, Lupus Anticoag DRVVT Screen Ratio 1.0, Magnesium Level 2.0 CBC/BMP Laboratory Tests 01/29/17 06:43 Calcium Level 8.0 L, Red Blood Count 4.40, Mean Corpuscular Volume 85.3, Mean Corpuscular Hemoglobin 26.2 L, Mean Corpuscular Hemoglobin Concent 30.8 L, Red Cell Distribution Width 14.4, Neutrophils (%) (Auto) 60.4, Lymphocytes (%) (Auto ) 32.0, Monocytes (%) (Auto) 4.2, Eosinophils (%) (Auto) 1.8, Basophils (%) ( Auto) 0.3, Neutrophils # (Auto) 3.8, Lymphocytes # (Auto) 2.0, Monocytes # (Auto ) 0.3, Eosinophils # (Auto) 0.1, Basophils # (Auto) 0.0 Microbiology Microbiology 01/24/17 Blood Culture - Preliminary, Resulted No Growth after 72 hours. All specime... 01/28/17 Stool Occult Blood (ALONZO) - Final, Complete TOLU HANNA DO Jan 29, 2017 14:42
[2017-01-29] MEDS ORDERED: HEPARIN SOD (PORCINE) 5000 UNITS/ML VIAL IV PRN (15:30)
--- NOTE | 2017-01-29 16:10 | REP ---
BILATERAL LOWER EXTREMITY DOPPLER VENOUS ULTRASOUND: Clinical history: Upper extremity thrombus around a PICC line. Evaluate for DVT lower extremities. Comparison: None. Technique: The deep venous system of the bilateral lower extremities is evaluated with burris scale imaging, compression ultrasound, color imaging and duplex Doppler interrogation. Examination from the groin through the popliteal fossa into the proximal calf. Findings: There is full compressibility from the common femoral vein in the inguinal region through the popliteal vein on both sides. Color imaging confirms patency throughout the course of the deep venous system. There is respiratory variation and augmented flow at all levels. Impression: 1. No Doppler venous ultrasound evidence of DVT in the bilateral lower extremities. Signed by Raymon Tijerina MD 01/29/2017 05:17 P
--- NOTE | 2017-01-29 16:48 | IPNPDOC ---
Text Note Date of Service The patient was seen on 01/29/17. NOTE Full note to follow: Pt seen and evaluated today. Did speak with Dr Fitzgerald before and after my visit with the patient. Would recommend discontinuation of Oxycontin and oxyIR and start of Morphine Sulfate IR 15 mg q 6 hrs on a schedule. We have found that gastric bypass patients do not get much if any benefit from long acting medications as they are not absorbed. Would also recommend Buspar 5 mg tid for anxiety. She may well benefit from a Behavioral Health eval after discharge. Would encourage mobility and walking as able. Zhane FergusonP Jan 29, 2017 16:48
[2017-01-29] MEDS: WARFARIN SOD 5 MG TAB PO SCH (17:50)
[2017-01-29] MEDS: [UNRECOGNIZED DRUG - OTHER] IV SCH (19:07)
[2017-01-29] MEDS: MORPHINE 2 MG/ML 1ML SYRINGE IV PRN (19:12)
[2017-01-29] MEDS: SERTRALINE HCL 25 MG TABLET PO SCH (21:11)
[2017-01-29] MEDS: traZODone 50 MG TAB PO SCH (21:14)
[2017-01-29 22:00] VITALS: BP 122/68
[2017-01-30 00:17] LABS: INR 1.09
--- NOTE | 2017-01-30 00:36 | ECGEPIP ---
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
[2017-01-30 06:00] VITALS: BP 125/64
[2017-01-30] MEDS: oxyCODONE 5MG TAB PO PRN (06:37)
[2017-01-30] MEDS: SODIUM CHLORIDE 0.9% INJ 10 ML SYR IV PRN (07:42)
[2017-01-30 07:47] LABS: BASO % 0.2 % (0.0-1.0); EOS # 0.1 K/mm3 (0.0-0.50); EOS % 1.9 % (0.0-3.0); LARGE UNSTAINED CELL # 0.1 K/mm3 (0.0-0.4); LARGE UNSTAINED CELL % 1.7 % (0.0-4.0); LYMPH # 1.6 K/mm3 (1.5-4.5); LYMPH % 21.2 % (24.0-44.0); MEAN CORPUSCULAR HEMOGLOBIN 27.3 pg (27.0-33.0); MEAN CORPUSCULAR HGB CONC 32.5 g/dl (32.0-36.5); MEAN CORPUSCULAR VOLUME 84.1 fl (80.0-96.0); MONO # 0.5 K/mm3 (0.0-0.8); MONO % 6.7 % (0.0-5.0); NEUTROPHILS # 4.8 K/mm3 (1.8-7.7); NEUTROPHILS % 68.4 % (36.0-66.0); PLATELET COUNT, AUTOMATED 184 k/mm3 (150-450); RED CELL DISTRIBUTION WIDTH 14.3 % (11.5-14.5); WHITE BLOOD COUNT 7.1 K/mm3 (4.0-10.0)
[2017-01-30 07:49] LABS: INR 1.15
[2017-01-30] MEDS: SENOKOT S TAB PO SCH ×2 (08:12→20:15)
[2017-01-30] MEDS: ONDANSETRON 4 MG TAB (S0181) PO PRN (08:12)
[2017-01-30] MEDS: oxyCODONE 15 MG CR TAB PO SCH (08:12)
[2017-01-30 08:24] LABS: ANION GAP 9 MEQ/L (8-16); BLOOD UREA NITROGEN 15 MG/DL (7-18); CALCIUM LEVEL 8.3 MG/DL (8.5-10.1); CARBON DIOXIDE LEVEL 25 MEQ/L (21-32); CHLORIDE LEVEL 101 MEQ/L (98-107); GLOMERULAR FILTRATION RATE > 60.0 (>60); GLUCOSE, FASTING 125 MG/DL (70-105); POTASSIUM SERUM 4.6 MEQ/L (3.5-5.1); SODIUM LEVEL 135 MEQ/L (136-145)
[2017-01-30] MEDS: SUMAtriptan SUCCINATE 25 MG TAB PO PRN (09:39)
[2017-01-30] MEDS: busPIRone 5 MG TAB PO SCH ×3 (09:39→20:16)
--- NOTE | 2017-01-30 11:37 | IPN ---
DATE: 01/29/2017 Ms Lund is complaining of more generalized pain today. She has pain in the right upper extremity and to her shoulder and neck. The pain in her posterior right chest is better to palpation. She is also complaining of pain in the left lower extremity in her calves. Her vital signs today show a T-max of 99.7 with a heart rate that ranges between 102 and 117 but regular rate and rhythm, respiratory rate that is constant at 18 who is 97 to 94% saturated on room air. Blood pressure is ranging between 124/69 to 120/67. Her intake and output over the past 24 hours is recorded as 2232 in and 2049 out for a positivity of 182 mL. There is no weight on her today. On physical examination, her lungs show normal vesicular sounds on either side. Percussion note is full to the diaphragm. The sensation on the right lower hemothorax is less painful than it was before. Cardiac exam is without murmurs, clicks, gallops or rubs. I cannot feel her point of maximum impulse (PMI). S1 and S2 are normal. Abdomen is soft but tender in the right lower quadrant and left upper quadrant. She should have more generalized tenderness all over her abdomen today but there is rebound or guarding or rigidity. Extremities show no pretibial edema. Her left leg looks a little bit more swollen than her right leg and, in fact, the nursing staff has measured it and it is 2 cm greater than the right leg. Nonetheless, she is complaining of pain in her right leg. There is no real calf tenderness that I can elicit. Upper extremities show again, subtle swelling of her fingers. She is tender to palpation throughout the upper arm and the infraclavicular fossa on that right side. The left supraclavicular fossa is less painful and her neck is not painful. There are no subclavian bruits or aortic. Neck is supple. There is no jugular venous distention. No subcutaneous emphysema. Trachea is midline and there is no carotid or subclavian bruits. Mouth shows her mucous membranes to be pink and moist. Lips and commissures are without lesions. There is no thrush. Eyes show her pupils to be equal and reactive. Extraocular movements intact. Sclerae nonicteric. Neurologic shows II-XII intact along with gross motor and gross sensation intact. Gait is not tested. Psychiatric showed her to be awake, alert and oriented times three with appropriate and affect and conversational. Her white count today is 6.2, hemoglobin and hematocrit 11.6 and 37.6 essentially unchanged from yesterday with a platelet count of 197 and stable. Differential shows 60% neutrophils, 32% lymphocytes, 4% monocytes. There are no immature forms, no toxic granulations. Chemistries show normal electrolytes with a BUN and creatinine of 16 and 0.56, glucose 139, calcium 8.0. Magnesium is 2.0. Her C-reactive protein continues to go down to 1.02. Her PTT is 73 seconds with a PT/INR of 14.2 and 1.15. There is no chest x-ray on her today. IMPRESSION: 1. Deep venous thrombosis of right upper extremities. 2. Indwelling peripherally inserted PICC catheter removed. 3. Nutritionally dependent on total parental nutrition (TPN). 4. 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 Unable to take solid or oral intake. 5. Migraine headaches. 6. Lupus erythematosus. 7. Fibromyalgia. 8. History of endometriosis, status post hysterectomy. PLAN AND DISCUSSION: Mrs. Lund is now complaining of chest pain and some shortness of breath. Because of her deep venous thrombosis, I am compelled to order a CT angio of her chest. Furthermore, her left leg is a little more swollen than her right leg and she has calf tenderness and I am compelled to undertake an extremity ultrasound. The problem is arising that Ms Lund complains of all types of pain and symptomatology which is forcing us to perform procedure, which may or may not be needed. The more she complains, the more we are going to be forced to investigate each of these complaints. This may be her underlying fibromyalgia, however, as noted in yesterday's discussion, fibromyalgia is a diagnosis exclusion. She has certainly had a very difficult course after her gastric bypass and she has certainly has not had a satisfactory result. We will review those studies later today. I have talked to Dr. Hoyt regarding her anticoagulation status and since the catheter is now removed, I have recommended that we start her on Coumadin but keep her heparinized until she is adequately anticoagulated. The anticoagulation should last at least 6 months, although there is no real data with regard to upper extremity thrombosis, as to how long the anticoagulation should be maintained. Certainly followup ultrasounds will guide us with regard to resolution of her clot.
[2017-01-30] MEDS: MORPHINE 30 MG TAB **MSIR PO PRN ×2 (12:31→18:39)
[2017-01-30] MEDS: HEPARIN DRIP 25,000 UNITS in APPROPRIATE DILUENT 1 EA IV SCH (13:50)
[2017-01-30 14:00] VITALS: BP 114/73
[2017-01-30] MEDS: PROMETHAZINE 25 MG TAB PO PRN (14:30)
[2017-01-30] MEDS: WARFARIN SOD 5 MG TAB PO SCH (17:08)
[2017-01-30] MEDS: [UNRECOGNIZED DRUG - OTHER] IV SCH (19:26)
[2017-01-30] MEDS: CEPACOL LOZENGE PO PRN (20:15)
[2017-01-30] MEDS: traZODone 50 MG TAB PO SCH (20:16)
[2017-01-30] MEDS: SERTRALINE HCL 25 MG TABLET PO SCH (20:16)
[2017-01-30] MEDS: AMOXICILLIN 500 MG CAP PO SCH (20:21)
[2017-01-30 22:00] VITALS: BP 118/63
[2017-01-30] MEDS ORDERED: AMOXICILLIN 250 MG CAP PO SCH (22:00)
[2017-01-30] MEDS: MORPHINE 2 MG/ML 1ML SYRINGE IV PRN (23:17)
[2017-01-31 02:42] LABS: INR 1.32
[2017-01-31 06:00] VITALS: BP 111/55
[2017-01-31] MEDS: ONDANSETRON 4MG/2ML VIAL (J2405) IV PRN ×3 (06:12→21:03)
[2017-01-31] MEDS: MORPHINE 2 MG/ML 1ML SYRINGE IV PRN (06:19)
[2017-01-31 07:19] LABS: INR 1.47
[2017-01-31 07:23] LABS: BASO % 0.2 % (0.0-1.0); EOS # 0.1 K/mm3 (0.0-0.50); EOS % 1.7 % (0.0-3.0); LARGE UNSTAINED CELL # 0.2 K/mm3 (0.0-0.4); LARGE UNSTAINED CELL % 2.2 % (0.0-4.0); LYMPH # 1.4 K/mm3 (1.5-4.5); LYMPH % 20.4 % (24.0-44.0); MEAN CORPUSCULAR HEMOGLOBIN 27.3 pg (27.0-33.0); MEAN CORPUSCULAR HGB CONC 32.7 g/dl (32.0-36.5); MEAN CORPUSCULAR VOLUME 83.4 fl (80.0-96.0); MONO # 0.6 K/mm3 (0.0-0.8); MONO % 9.2 % (0.0-5.0); NEUTROPHILS # 4.6 K/mm3 (1.8-7.7); NEUTROPHILS % 66.4 % (36.0-66.0); PLATELET COUNT, AUTOMATED 164 k/mm3 (150-450); RED CELL DISTRIBUTION WIDTH 14.3 % (11.5-14.5); WHITE BLOOD COUNT 6.9 K/mm3 (4.0-10.0)
[2017-01-31 07:35] LABS: ANION GAP 8 MEQ/L (8-16); BLOOD UREA NITROGEN 17 MG/DL (7-18); CARBON DIOXIDE LEVEL 24 MEQ/L (21-32); CHLORIDE LEVEL 102 MEQ/L (98-107); CREATININE FOR GFR 0.56 MG/DL (0.55-1.02); GLOMERULAR FILTRATION RATE > 60.0 (>60); GLUCOSE, FASTING 173 MG/DL (70-105); MAGNESIUM LEVEL 2.1 MG/DL (1.8-2.4); POTASSIUM SERUM 4.4 MEQ/L (3.5-5.1); SODIUM LEVEL 134 MEQ/L (136-145)
[2017-01-31] MEDS: AMOXICILLIN 500 MG CAP PO SCH ×2 (08:21→20:51)
[2017-01-31] MEDS: SODIUM CHLORIDE 0.9% INJ 10 ML SYR IV PRN ×2 (08:21→12:16)
[2017-01-31] MEDS: SENOKOT S TAB PO SCH ×2 (08:21→20:51)
[2017-01-31] MEDS: busPIRone 5 MG TAB PO SCH ×3 (08:21→20:50)
[2017-01-31] MEDS: PROMETHAZINE 25 MG TAB PO PRN (08:32)
[2017-01-31 10:00] VITALS: BP 135/84
[2017-01-31] MEDS: MORPHINE 30 MG TAB **MSIR PO PRN ×2 (10:24→20:51)
[2017-01-31 10:25] VITALS: BP 135/84
[2017-01-31] MEDS: LORazepam 0.5 MG TAB PO PRN (10:34)
[2017-01-31 10:49] LABS: INR 1.39
[2017-01-31] MEDS: HEPARIN DRIP 25,000 UNITS in APPROPRIATE DILUENT 1 EA IV SCH (11:06)
[2017-01-31 14:00] VITALS: BP 129/80
--- NOTE | 2017-01-31 15:41 | IPNPDOC ---
Subjective Date Seen The patient was seen on 01/30/17. Subjective Chief Complaint/HPI The patient is a 36-year-old female admitted with a reason for visit of Dvt Of Upper Extremity (Deep Vein Thrombosis). Events since last encounter pt seen and examined, was complaining of sore throat today, stating her son was recently diagnosed with strep throat Objective Physical Examination General Exam: Positive: Alert, No Acute Distress Eye Exam: Positive: Conjunctiva & lids normal, EOMI, PERRLA, Negative: Sclera icteric ENT Exam: Positive: Atraumatic, Mucous membr. moist/pink, Pharynx Normal Neck Exam: Positive: Supple, Negative: JVD, thyromegaly Chest Exam: Positive: Clear to auscultation, Normal air movement Heart Exam: Positive: Normal S1, Normal S2, Regular Rhythm, Tachycardic, Negative: Murmurs, Rubs Abdomen Exam: Positive: Normal bowel sounds, Soft, Negative: Hepatospenomegaly, Tenderness Extremity Exam: Positive: Normal pulses, Negative: Clubbing, Cyanosis, Edema Skin Exam: Positive: Nl turgor and temperature, Negative: Breakdown, Rash Assessment /Plan Problems (1) DVT of upper extremity (deep vein thrombosis) Status: Acute Problem Text: related to picc line ,Old PICC line on the right removed Patient may have factor V leiden. coagulation work up ordered. continue heparin and coumadin daily INR (2) Status post gastric bypass for obesity Status: Chronic Problem Text: had surgery on oct 2016 and has lost 60 lbs in 3 months. (3) Post surgical complication Status: Chronic Problem Text: unable to tolerate oral food with rapid weight loss 60 ibs in 3 months so on TPN every night for 12 hours since middle of december. (4) Lupus Status: Chronic Problem Text: continue home meds. (5) Fibromyalgia Status: Chronic Problem Text: Has chronic pain requiring oxycodone 10 mg q4 hours, will start on oxycontin bid. continue trazodone and zoloft and ativan prn. (6) Migraine Status: Chronic Problem Text: continue imitrex prn. (7) Chest pain Status: Acute Problem Text: * EKG didn't show any ST changes * will order cardiac marker * CT angio was negative for PE * pain consult * pt had this pain for a few days but is getting worse now (8) Sore throat Status: Acute Problem Text: order rapid strep Plan/VTE VTE Prophylaxis Ordered?: Yes VS, I&O, 24H, Fishbone Vital Signs/I&O Vital Signs Date Time Temp Pulse Resp B/P Pulse Ox O2 Delivery O2 Flow Rate FiO2 01/30/17 19:28 18 01/30/17 14:00 98.0 97 114/73 95 Room Air I&O- Last 24 Hours up to 6 AM 01/30/17 06:00 Intake Total 2292 ml Output Total 2000 ml Balance 292 ml Laboratory Data 24H LABS Laboratory Tests 2 01/30/17 00:05: Activated Partial Thromboplast Time 56.9H, Prothromb Time International Ratio 1.09, Prothrombin Time 14.2 01/30/17 07:30: Activated Partial Thromboplast Time 73.2H, Prothromb Time International Ratio 1.15, Prothrombin Time 14.8H, Anion Gap 9, White Blood Count 7.1, Red Blood Count 4.28, Hemoglobin 11.7L, Hematocrit 36.0, Mean Corpuscular Volume 84.1, Mean Corpuscular Hemoglobin 27.3, Mean Corpuscular Hemoglobin Concent 32.5, Red Cell Distribution Width 14.3, Platelet Count 184, Neutrophils (%) (Auto) 68.4H, Lymphocytes (%) (Auto) 21.2L, Monocytes (%) (Auto) 6.7H, Eosinophils (%) (Auto) 1.9, Basophils (%) (Auto) 0.2, Neutrophils # (Auto) 4.8, Lymphocytes # (Auto) 1.6, Monocytes # (Auto) 0.5, Eosinophils # (Auto) 0.1, Basophils # (Auto) 0.0, C -Reactive Protein, Quantitative 1.68H, Blood Urea Nitrogen 15, Creatinine 0.50L , Sodium Level 135L, Potassium Level 4.6, Chloride Level 101, Carbon Dioxide Level 25, Calcium Level 8.3L, Glomerular Filtration Rate > 60.0, Large Unclassified Cells # 0.1, Large Unclassified Cells % 1.7, Magnesium Level 2.0 01/30/17 12:22: Activated Partial Thromboplast Time 42.1H CBC/BMP Laboratory Tests 01/30/17 07:30 Calcium Level 8.3 L, Red Blood Count 4.28, Mean Corpuscular Volume 84.1, Mean Corpuscular Hemoglobin 27.3, Mean Corpuscular Hemoglobin Concent 32.5, Red Cell Distribution Width 14.3, Neutrophils (%) (Auto) 68.4 H, Lymphocytes (%) (Auto) 21.2 L, Monocytes (%) (Auto) 6.7 H, Eosinophils (%) (Auto) 1.9, Basophils (%) ( Auto) 0.2, Neutrophils # (Auto) 4.8, Lymphocytes # (Auto) 1.6, Monocytes # (Auto ) 0.5, Eosinophils # (Auto) 0.1, Basophils # (Auto) 0.0 Microbiology Microbiology 01/24/17 Blood Culture - Final, Complete NO GROWTH AFTER 5 DAYS 01/28/17 Stool Occult Blood (ALONZO) - Final, Complete 01/30/17 Group A Streptococcus Screen ([facility]) - Final, Complete TOLU HANNA DO Jan 30, 2017 20:22
--- NOTE | 2017-01-31 15:44 | IPNPDOC ---
Subjective Date Seen The patient was seen on 01/31/17. Subjective Chief Complaint/HPI The patient is a 36-year-old female admitted with a reason for visit of Dvt Of Upper Extremity (Deep Vein Thrombosis). Events since last encounter pt seen and examined was complaining of chest pain today, described as pressure like Constitutional: Denies: Chills, Fever, Night Sweats Pulmonary: Denies: Cough, Dyspnea Cardiovascular: Reports: Chest Pain, Denies: Lt Headedness, Orthopnea, Palpitations, Paroxysmal Noc. Dyspnea Objective Physical Examination General Exam: Positive: Alert, No Acute Distress Eye Exam: Positive: Conjunctiva & lids normal, EOMI, PERRLA, Negative: Sclera icteric ENT Exam: Positive: Atraumatic, Mucous membr. moist/pink, Pharynx Normal Neck Exam: Positive: Supple, Negative: JVD, thyromegaly Chest Exam: Positive: Clear to auscultation, Normal air movement Heart Exam: Positive: Normal S1, Normal S2, Regular Rhythm, Tachycardic, Negative: Murmurs, Rubs Abdomen Exam: Positive: Normal bowel sounds, Soft, Negative: Hepatospenomegaly, Tenderness Extremity Exam: Positive: Normal pulses, Negative: Clubbing, Cyanosis, Edema Skin Exam: Positive: Nl turgor and temperature, Negative: Breakdown, Rash Assessment /Plan Problems (1) Strep throat Status: Acute Problem Text: * pt was started on amoxicillin 01/30 (2) Chest pain Status: Acute Problem Text: * EKG didn't show any ST changes * cardiac markers negative will order one more set in 8 hours (3) DVT of upper extremity (deep vein thrombosis) Status: Acute Problem Text: related to picc line ,Old PICC line on the right removed Patient may have factor V leiden. coagulation work up ordered. continue heparin and coumadin daily INR (4) Status post gastric bypass for obesity Status: Chronic Problem Text: had surgery on oct 2016 and has lost 60 lbs in 3 months. (5) Post surgical complication Status: Chronic Problem Text: unable to tolerate oral food with rapid weight loss 60 ibs in 3 months so on TPN every night for 12 hours since middle of december. (6) Lupus Status: Chronic Problem Text: continue home meds. (7) Fibromyalgia Status: Chronic Problem Text: Has chronic pain requiring oxycodone 10 mg q4 hours, will start on oxycontin bid. continue trazodone and zoloft and ativan prn. (8) Migraine Status: Chronic Problem Text: continue imitrex prn. Plan/VTE VTE Prophylaxis Ordered?: Yes VS, I&O, 24H, Fishbone Vital Signs/I&O Vital Signs Date Time Temp Pulse Resp B/P Pulse Ox O2 Delivery O2 Flow Rate FiO2 01/31/17 14:00 98.7 103 18 129/80 95 Room Air I&O- Last 24 Hours up to 6 AM 01/31/17 06:00 Intake Total 3167 ml Output Total 2100 ml Balance 1067 ml Laboratory Data 24H LABS Laboratory Tests 2 01/30/17 20:01: Activated Partial Thromboplast Time 191.8*H 01/31/17 02:20: Activated Partial Thromboplast Time 35.2, Prothromb Time International Ratio 1.32, Prothrombin Time 16.5H 01/31/17 06:54: Prothromb Time International Ratio 1.47, Prothrombin Time 17.9H, Anion Gap 8, White Blood Count 6.9, Red Blood Count 4.22, Hemoglobin 11.5L, Hematocrit 35.2L , Mean Corpuscular Volume 83.4, Mean Corpuscular Hemoglobin 27.3, Mean Corpuscular Hemoglobin Concent 32.7, Red Cell Distribution Width 14.3, Platelet Count 164, Neutrophils (%) (Auto) 66.4H, Lymphocytes (%) (Auto) 20.4L, Monocytes (%) (Auto) 9.2H, Eosinophils (%) (Auto) 1.7, Basophils (%) (Auto) 0.2 , Neutrophils # (Auto) 4.6, Lymphocytes # (Auto) 1.4L, Monocytes # (Auto) 0.6, Eosinophils # (Auto) 0.1, Basophils # (Auto) 0.0, C-Reactive Protein, Quantitative 2.83H, Blood Urea Nitrogen 17, Creatinine 0.56, Sodium Level 134L, Potassium Level 4.4, Chloride Level 102, Carbon Dioxide Level 24, Calcium Level 8.0L, Glomerular Filtration Rate > 60.0, Large Unclassified Cells # 0.2, Large Unclassified Cells % 2.2, Magnesium Level 2.1 01/31/17 10:18: Activated Partial Thromboplast Time 81.5H, Prothromb Time International Ratio 1.39, Prothrombin Time 17.2H 01/31/17 10:26: Creatine Kinase MB 1.0, Creatine Kinase MB Relative Index 4.00, Total Creatine Kinase 25L, Troponin I < 0.02 CBC/BMP Laboratory Tests 01/31/17 06:54 Calcium Level 8.0 L, Red Blood Count 4.22, Mean Corpuscular Volume 83.4, Mean Corpuscular Hemoglobin 27.3, Mean Corpuscular Hemoglobin Concent 32.7, Red Cell Distribution Width 14.3, Neutrophils (%) (Auto) 66.4 H, Lymphocytes (%) (Auto) 20.4 L, Monocytes (%) (Auto) 9.2 H, Eosinophils (%) (Auto) 1.7, Basophils (%) ( Auto) 0.2, Neutrophils # (Auto) 4.6, Lymphocytes # (Auto) 1.4 L, Monocytes # ( Auto) 0.6, Eosinophils # (Auto) 0.1, Basophils # (Auto) 0.0 Microbiology Microbiology 01/24/17 Blood Culture - Final, Complete NO GROWTH AFTER 5 DAYS 01/28/17 Stool Occult Blood (ALONZO) - Final, Complete 01/30/17 Group A Streptococcus Screen (ALONZO) - Final, Complete TOLU HANNA DO Jan 31, 2017 15:44
[2017-01-31] MEDS: oxyCODONE 5MG TAB PO PRN (15:45)
[2017-01-31] MEDS: WARFARIN SOD 5 MG TAB PO SCH (17:07)
--- NOTE | 2017-01-31 18:34 | ECGEPIP ---
Stationary ECG Study [facility] Test Date: 2017-01-31 Pat Name: NEHAL SOARES Department: Room: [place] [address] Gender: F Malter Operator: : 1980 Requested By: TOLU HANNA Order Number: [id number] Reading MD: Dayday Carolina Measurements Intervals [place] Rate: 103 P: 58 NE: 136 QRS: 35 QRSD: 86 T: 11 QT: 345 QTc: 454 Interpretive Statements SINUS TACHYCARDIA POSSIBLE PRIOR INFERIOR WALL INFARCT ABNORMAL ECG COMPARED TO THE LAST 2 TRACINGS IN THE SYSTEM, NO SIGNIFICANT CHANGES Electronically Signed On 01-31-2017 18:34:24 EDT by Dayday Carolina
[2017-01-31] MEDS ORDERED: FAT EMULSION IV 20% 500 ML IV SCH (19:30)
[2017-01-31] MEDS ORDERED: AMINO AC/ELECTROLYTE/DEX/CALC 2,000 ML IV SCH (19:30)
[2017-01-31] MEDS: SERTRALINE HCL 25 MG TABLET PO SCH (20:50)
[2017-01-31] MEDS: FAMOTIDINE 20 MG TAB PO SCH (20:50)
[2017-01-31] MEDS: traZODone 50 MG TAB PO SCH (20:51)
[2017-01-31] MEDS ORDERED: raNITIdine SYRUP 150 MG/10 ML UDC PO SCH (21:00)
[2017-01-31 22:00] VITALS: BP 123/67
[2017-02-01] MEDS: HEPARIN DRIP 25,000 UNITS in APPROPRIATE DILUENT 1 EA IV SCH (03:41)
[2017-02-01 06:00] VITALS: BP 129/71
[2017-02-01 07:00] LABS: INR 2.16
[2017-02-01] MEDS: SENOKOT S TAB PO SCH ×2 (07:55→20:48)
[2017-02-01] MEDS: FAMOTIDINE 20 MG TAB PO SCH ×2 (07:55→20:47)
[2017-02-01] MEDS: AMOXICILLIN 500 MG CAP PO SCH ×2 (07:55→20:47)
[2017-02-01] MEDS: busPIRone 5 MG TAB PO SCH ×3 (07:55→20:48)
[2017-02-01] MEDS: ONDANSETRON 4MG/2ML VIAL (J2405) IV PRN ×2 (07:55→17:57)
[2017-02-01] MEDS: MORPHINE 30 MG TAB **MSIR PO PRN ×2 (08:03→17:58)
--- NOTE | 2017-02-01 10:45 | IPNPDOC ---
Subjective Date Seen The patient was seen on 02/01/17. Subjective Chief Complaint/HPI The patient is a 36-year-old female admitted with a reason for visit of Dvt Of Upper Extremity (Deep Vein Thrombosis). Events since last encounter pain in the upper extremity and generalized body ache continues to be a major issue. patient very anxious Objective Physical Examination General Exam: Positive: Alert, No Acute Distress Eye Exam: Positive: Conjunctiva & lids normal, EOMI, PERRLA, Negative: Sclera icteric ENT Exam: Positive: Atraumatic, Mucous membr. moist/pink, Pharynx Normal Neck Exam: Positive: Supple, Negative: JVD, thyromegaly Chest Exam: Positive: Clear to auscultation, Normal air movement Heart Exam: Positive: Normal S1, Normal S2, Regular Rhythm, Tachycardic, Negative: Murmurs, Rubs Abdomen Exam: Positive: Normal bowel sounds, Soft, Negative: Hepatospenomegaly, Tenderness Extremity Exam: Positive: Normal pulses, Negative: Clubbing, Cyanosis, Edema Skin Exam: Positive: Nl turgor and temperature, Negative: Breakdown, Rash Assessment /Plan Problems (1) Strep throat Status: Acute Problem Text: * pt was started on amoxicillin 01/30 (2) Chest pain Status: Acute Problem Text: * EKG didn't show any ST changes * cardiac markers negative will order one more set in 8 hours (3) DVT of upper extremity (deep vein thrombosis) Status: Acute Problem Text: related to picc line ,Old PICC line on the right removed Patient may have factor V leiden. coagulation work up ordered. continue heparin and coumadin INR therapeutic today will need another therapeutic one before discharge. (4) Status post gastric bypass for obesity Status: Chronic Problem Text: had surgery on oct 2016 and has lost 60 lbs in 3 months. (5) Post surgical complication Status: Chronic Problem Text: unable to tolerate oral food with rapid weight loss 60 ibs in 3 months so on TPN every night for 12 hours since middle december. (6) Lupus Status: Chronic Problem Text: continue home meds. (7) Fibromyalgia Status: Chronic Problem Text: Has chronic pain requiring oxycodone 10 mg q4 hours, will start on oxycontin bid. continue trazodone and zoloft and ativan prn. (8) Migraine Status: Chronic Problem Text: continue imitrex prn. Plan/VTE VTE Prophylaxis Ordered?: Yes VS, I&O, 24H, Fishbone Vital Signs/I&O Vital Signs Date Time Temp Pulse Resp B/P Pulse Ox O2 Delivery O2 Flow Rate FiO2 01/31/17 22:00 99.1 102 20 123/67 96 01/31/17 14:00 Room Air I&O- Last 24 Hours up to 6 AM 02/01/17 06:00 Intake Total 2180 ml Output Total 2600 ml Balance -420 ml Laboratory Data 24H LABS Laboratory Tests 2 01/31/17 06:54: Anion Gap 8, White Blood Count 6.9, Red Blood Count 4.22, Hemoglobin 11.5L, Hematocrit 35.2L, Mean Corpuscular Volume 83.4, Mean Corpuscular Hemoglobin 27.3 , Mean Corpuscular Hemoglobin Concent 32.7, Red Cell Distribution Width 14.3, Platelet Count 164, Neutrophils (%) (Auto) 66.4H, Lymphocytes (%) (Auto) 20.4L, Monocytes (%) (Auto) 9.2H, Eosinophils (%) (Auto) 1.7, Basophils (%) (Auto) 0.2 , Neutrophils # (Auto) 4.6, Lymphocytes # (Auto) 1.4L, Monocytes # (Auto) 0.6, Eosinophils # (Auto) 0.1, Basophils # (Auto) 0.0, C-Reactive Protein, Quantitative 2.83H, Blood Urea Nitrogen 17, Creatinine 0.56, Sodium Level 134L, Potassium Level 4.4, Chloride Level 102, Carbon Dioxide Level 24, Calcium Level 8.0L, Glomerular Filtration Rate > 60.0, Large Unclassified Cells # 0.2, Large Unclassified Cells % 2.2, Magnesium Level 2.1, Prothromb Time International Ratio 1.47, Prothrombin Time 17.9H 01/31/17 10:18: Prothromb Time International Ratio 1.39, Prothrombin Time 17.2H, Activated Partial Thromboplast Time 81.5H 01/31/17 10:26: Creatine Kinase MB 1.0, Creatine Kinase MB Relative Index 4.00, Total Creatine Kinase 25L, Troponin I < 0.02 01/31/17 16:01: Activated Partial Thromboplast Time 110.0H 01/31/17 18:15: Troponin I < 0.02 01/31/17 23:01: Activated Partial Thromboplast Time 101.0H CBC/BMP Laboratory Tests 01/31/17 06:54 Calcium Level 8.0 L, Red Blood Count 4.22, Mean Corpuscular Volume 83.4, Mean Corpuscular Hemoglobin 27.3, Mean Corpuscular Hemoglobin Concent 32.7, Red Cell Distribution Width 14.3, Neutrophils (%) (Auto) 66.4 H, Lymphocytes (%) (Auto) 20.4 L, Monocytes (%) (Auto) 9.2 H, Eosinophils (%) (Auto) 1.7, Basophils (%) ( Auto) 0.2, Neutrophils # (Auto) 4.6, Lymphocytes # (Auto) 1.4 L, Monocytes # ( Auto) 0.6, Eosinophils # (Auto) 0.1, Basophils # (Auto) 0.0 Microbiology Microbiology 01/24/17 Blood Culture - Final, Complete NO GROWTH AFTER 5 DAYS 01/28/17 Stool Occult Blood (ALONZO) - Final, Complete 01/30/17 Group A Streptococcus Screen (ALONZO) - Final, Complete FERNANDO CARRILLO MD Feb 01, 2017 06:38
[2017-02-01] MEDS: MORPHINE 2 MG/ML 1ML SYRINGE IV PRN (11:59)
[2017-02-01] MEDS: LORazepam 0.5 MG TAB PO PRN ×2 (11:59→20:48)
[2017-02-01] MEDS: PROMETHAZINE 25 MG TAB PO PRN ×2 (11:59→18:42)
[2017-02-01 13:59] LABS: INR 2.13
[2017-02-01 14:00] VITALS: BP 137/74
[2017-02-01] MEDS: WARFARIN SOD 5 MG TAB PO SCH (16:10)
[2017-02-01] MEDS: SUMAtriptan SUCCINATE 25 MG TAB PO PRN (17:57)
[2017-02-01] MEDS ORDERED: FAT EMULSION IV 20% 500 ML IV SCH (19:30)
[2017-02-01] MEDS ORDERED: MULTIVITAMIN -ADULT INJECTION 10 ML, CR/CU/SE/MN/ZN INJ 1 ML in AMINO AC/ELECTROLYTE/DE... IV SCH (19:30)
[2017-02-01] MEDS: traZODone 50 MG TAB PO SCH (20:48)
[2017-02-01] MEDS: SERTRALINE HCL 25 MG TABLET PO SCH (20:48)
[2017-02-01] MEDS: oxyCODONE 5MG TAB PO PRN (20:48)
[2017-02-01 22:00] VITALS: BP 128/79
[2017-02-02] MEDS: SODIUM CHLORIDE 0.9% INJ 10 ML SYR IV PRN (05:16)
[2017-02-02 05:43] LABS: INR 2.72
[2017-02-02 06:00] VITALS: BP 118/63
[2017-02-02] MEDS: FAMOTIDINE 20 MG TAB PO SCH (09:27)
[2017-02-02] MEDS: SENOKOT S TAB PO SCH (09:27)
[2017-02-02] MEDS: AMOXICILLIN 500 MG CAP PO SCH (09:27)
[2017-02-02] MEDS: busPIRone 5 MG TAB PO SCH (09:28)
[2017-02-02] MEDS: MORPHINE 30 MG TAB **MSIR PO PRN (09:46)
[2017-02-02] MEDS: ONDANSETRON 4MG/2ML VIAL (J2405) IV PRN (09:46)
[2017-02-02] MEDS ORDERED: COUM1TAB17 PO (10:56)
[2017-02-02] MEDS ORDERED: BUSP5TA PO (10:56)
[2017-02-02] MEDS ORDERED: AMOX500C PO (10:56)
[2017-02-02 14:00] VITALS: BP 134/75
[2017-02-02] MEDS: oxyCODONE 5MG TAB PO PRN (14:10)
--- NOTE | 2017-02-03 06:41 | IPN ---
DATE: 02/01/2017 Ms. Lund is now fully anticoagulated with an international normalized ratio (INR) of 2.1. Her pain in her lower right arm is better, but she still has pain in the upper extremity along the course of the axillary and cephalic veins. She is minimally tender in the right infraclavicular fossa, and there is no tenderness in the supraclavicular fossa. Her right lower quadrant pain has also resolved. Overall, she is doing better. Although, she does state that she has more pain than she did yesterday. Her vital signs show a maximum temperature (Tmax) of 99.6 with a heart rate that ranges between 102-98 with a regular rate and rhythm, respiratory rate of 18-20 without the use of accessory muscles, who is 96% saturated on room air. Blood pressure is 137/74 to 123/67. Intake and output for the past 24 hours is recorded as 2540 in and 3250 out for a negativity of 700 mL. This includes her urine output and oral intake, but does not seem to include her total parenteral nutrition (TPN). On physical examination, her lungs show normal vesicular sounds. Percussion note is full to the diaphragm. Cardiac exam is without murmurs, clicks, gallops or rubs. I cannot feel her point of maximum impulse (PMI). S1 and S2 are normal. Abdomen is soft but tender in the left upper quadrant. There is no tenderness in the right lower quadrant. Bowel sounds are positive but hypoactive. There is no hepatomegaly that I can appreciate through her obesity. There is no costovertebral angle (CVA) tenderness. Extremities show no pretibial edema, no calf tenderness, and now there is no differential swelling of the upper extremities. There is no difference in color between the upper extremities. There is no temperature difference. Skin is warm, dry and perfused, without cyanosis or mottling including that of nail beds and knees. Neck is supple. There is no jugular venous distention. No subcutaneous emphysema. Trachea is midline. Mouth shows her mucous membranes to be pink and moist. Lips and commissures are without lesions. There is no thrush. Eyes show her pupils to be equal and reactive. Extraocular movements intact. Sclerae nonicteric. Neurologic shows II-XII intact along with gross motor and gross sensation intact. Gait is not tested. Psychiatric shows her to be awake and alert, oriented times three with appropriate and affect and conversational. Her white count is not done today, and neither are chemistries. Her PT/INR are 23.9 and 2.13 this afternoon and 24.2 and 2.16 early this morning. PTT is 81 seconds. There is no chest x-ray on her today. IMPRESSION: 1. Deep venous thrombosis right upper extremity.. 2. Indwelling peripherally inserted peripherally inserted central catheter (PICC) removed and replaced on the left side. 3. Nutritionally dependent on total parental nutrition. 4. 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 Unable to take solid oral intake. 5. Migraine headaches. 6. Lupus erythematosus. 7. Fibromyalgia. 8. History of endometriosis, status post hysterectomy. Now that she is in therapeutic range and with her INR on Coumadin, we can discontinue the heparin. I did tell her that from my perspective it would be okay for her to go home; however, the hospitalist service wants a 2-day confirmation of her coagulation status. We will therefore plan tentatively to discharge her tomorrow. She needs to followup with her primary care physician for her Coumadin control. She is to find a bariatric surgeon in [place] where they are moving to in 47 days.
--- NOTE | 2017-02-03 06:59 | IPN ---
DATE: 01/30/2017 Ms Lund still complains of generalized pain today. She still has moderate right lower quadrant tenderness. She has pain in the upper extremity particularly, and in the shoulder and neck. She also complains in the left lower extremity in her calves. Her vital signs today shows a maximum temperature (Tmax) of 98.0 with a heart rate that ranges between 84-110 with a regular rate and rhythm, respiratory rate of 18-20 without the use of accessory muscles, who is 95-96% saturated on room air and whose blood pressure is ranging between 124/65 to 114/73. Her intake and output over the past 24 hours has been recorded as 2232 in and 2049 out, which includes her total parenteral nutrition (TPN). She has a positivity of 182 mL. On physical examination, her lungs show normal vesicular sounds on either side. Percussion note shows no dullness to percussion at the bases, but she is slightly tender in the right lower hemithorax. Cardiac exam is without murmurs, clicks, gallops or rubs. I cannot feel her point of maximum impulse (PMI). S1 and S2 are normal. Abdomen is soft but tender in the right lower quadrant and in the left upper quadrant. The right lower quadrant tenderness is less today than it was yesterday. Bowel sounds are positive but hypoactive. Extremities show no pretibial edema and no calf tenderness. There is some differential swelling of the upper extremities with the right being more swollen than the left. The right upper extremity is still painful in the upper arm and in the upper half of the lower long, along with the right infraclavicular fossa on the right side. Skin is warm, dry and perfused, without cyanosis or mottling, including the nail beds and the knees. Neck is supple. There is no jugular venous distention and no subcutaneous emphysema. Trachea is midline. Mouth shows her mucous membranes to be pink and moist. Lips and commissures are without lesions. There is no thrush. Eyes show her pupils to be equal and reactive. Extraocular movements intact. Sclerae nonicteric. Neurologic shows II-XII intact along with gross motor and gross sensation intact. Gait is not tested. Psychiatric shows her to be awake and alert, oriented times three with appropriate and affect and conversational. Her white count today is 7.1 with hemoglobin and hematocrit of 11.7 and 36.0. Platelet count is 184, and her differential shows 68% neutrophils, 21% lymphocytes, 6% monocytes. There are no immature forms, no toxic granulations. Her electrolytes show a marginally low sodium of 235 with a BUN and creatinine of 15 and 0.54. The remainder of her electrolytes are normal. Calcium is 8.3 with a magnesium of 2.0. Her C-reactive protein is up to 1.68. Troponins are all negative. There is no chest x-ray on her today. Her PTT varies between 42 and 191 seconds. IMPRESSION: 1. Deep venous thrombosis of right upper extremity. 2. Indwelling peripherally inserted catheter on the right removed and being replaced on the left by another PICC catheter. 3. Nutritionally dependent on TPN. 4. 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 Unable to take solid oral intake. 5. Migraine headaches. 6. Lupus erythematosus. 7. Fibromyalgia. 8. History of endometriosis, status post hysterectomy. PLAN AND DISCUSSION: We can start the Coumadin giving Mrs. Bynum Coumadin to transition her from heparin. The PICC line has already been removed. She still has the tenderness in the upper arm, which is rather concerning. She still has some differential swelling. I do not think that the clot has been resolved, but at least it is controlled.
--- NOTE | 2017-02-03 07:23 | IPN ---
DATE: 01/31/2017 Mrs. Frosts pain is better today. She still has some right upper extremity pain but the pain in her infraclavicular and supraclavicular fossae are better. Her right lower quadrant pain is better. She has now been started on Coumadin. Her vital signs show a maximum temperature (Tmax) of 99.1 with a heart rate that ranges between 105-102 and is sinus rhythm, respiratory rate of 18-20 without the use of accessory muscles, who is 95-97% saturated on room air and whose blood pressure is ranging between 135/84 to 111/55. Her intake and output for the past 24 hours has been recorded as 2987 in and 1550 out for a positivity of 1475 mL. This does include her tissue plasminogen activator (tPA). Her weight today is 102.3 kg compared to 102.8 kg yesterday. On physical examination, her lungs show normal vesicular sounds without wheezes, rhonchi or rales. Percussion note is full to the diaphragm and she is not tender in the lower right hemithorax with percussion. Cardiac exam is without murmurs, clicks, gallops or rubs. I cannot feel her point of maximum impulse (PMI). S1 and S2 are normal. 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 Bowel sounds are positive but hypoactive. There is no costovertebral angle (CVA) tenderness. Extremities show no pretibial edema and no calf tenderness. There is minimal swelling of the right upper extremity but now I can see contour in her fingers. There is no color difference. Skin is warm, dry and perfused, without cyanosis or mottling, including the nail beds and the knees. Neck is supple. There is no jugular venous distention, no subcutaneous emphysema. Trachea is midline. Mouth shows her mucous membranes to be pink and moist. Lips and commissures are without lesions. There is no thrush. Eyes show her pupils to be equal and reactive. Extraocular movements intact. Sclerae nonicteric. Neurologic shows II-XII intact along with gross motor and gross sensation intact. Gait is not tested. Psychiatric shows her to be awake and alert, oriented times three with appropriate affect and conversational. Her white count today is 6.9 with hemoglobin and hematocrit of 11.5 and 35.2. Platelet count is 164 and stable. Differential shows 66% neutrophils, 20% lymphocytes and 9% monocytes. It is essentially unchanged from yesterday. There are no immature forms, no toxic granulations. Her electrolytes today are essentially normal with a marginally low sodium of 134 and a BUN and creatinine of 17 and 0.56, glucose of 173 and a calcium of 8.0, along with a magnesium of 2.1. Her C-reactive protein however is up to 2.83. Her PT/INR are 6.5 and 1.32, respectively with a PTT of now 35. The heparin has been increased. She will still get Coumadin today. Eventually, the PTT was corrected to 81.5 at 10 o'clock. There is no chest x-ray on her today. IMPRESSION: 1. Deep venous thrombosis right upper extremity. 2. Indwelling peripherally inserted central catheter (PICC) line on the right, now removed and replaced on the left. 3. Nutritionally dependent on total parenteral nutrition (TPN). 4. 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 Unable to take solid oral intake. 5. Migraine headaches. 6. Lupus erythematosus. 7. Fibromyalgia. 8. History of endometriosis, status post hysterectomy. PLAN AND DISCUSSION: Her INR is just starting to move. We will continue her on heparin until she is fully anticoagulated with an INR between 2-3. At that time, she will be able to go home.
--- NOTE | 2017-02-07 11:52 | DSES ---
DATE OF ADMISSION: 01/24/2017 DATE OF DISCHARGE: 02/02/2017 REASON FOR ADMISSION: Right arm swelling and redness. FINAL DIAGNOSES: 1. Right arm deep venous thrombosis (DVT). 2. Strep throat. 3. Status post gastric bypass for obesity. 4. Surgical complication 5. History of lupus. 6. History of fibromyalgia. 7. History of migraines. 8. Questionable factor V leiden deficiency. HISTORY OF PRESENT ILLNESS: The patient is a 36-year-old female, past medical history significant for migraines, endometriosis, lupus, and fibromyalgia, presented to the emergency room stating that she has been having right arm swelling and pain. The patient is status post bariatric surgery in October 2016. Since the surgery, she has been unable to tolerate oral diet and has been requiring total parenteral nutrition (TPN). She had a peripherally inserted central catheter (PICC) line in her right arm since last . She has been complaining of soreness in the arm over the next several days. She had noted that the pain and swelling had worsened and continued to spread. She came to the emergency room. The patient was found to have right upper extremity DVT associated with PICC line. The case was discussed with Dr. Fitzpatrick, who had reviewed the imaging. He felt that it was not in the best interest to attempt to remove the PICC line at this time. Rather, he recommended the patient be heparinized for several days. The patient was admitted under hospitalist service. She was continued on heparin. That was initiated in the emergency room. After about 3 or 4 days, the patient's PICC line was removed. She continued on heparin, and Coumadin was started to bridge the patient. Factor V and another coagulopathies were checked. The patient stated that in the past, she may have been diagnosed with factor V. However, she has not been on any anticoagulation in the past. She remained in the hospital until her international normalized ratio (INR) became therapeutic, and her pain had improved during the hospitalization. She was also seen by pain management, who optimized her pain to adjust for the fact that the patient cannot tolerate a lot of oral intake. She was continued on her TPN while in the hospital. Once the patient became therapeutic on Coumadin, she was discharged home. While in the hospital, she was also diagnosed with strep throat and started on amoxicillin. The patient was discharged when she became therapeutic and to followup with primary care provider in 2-5 days with INR check. Diet: Regular diet. Coumadin diet. Activities as tolerated. Discharge medications include: - Coumadin 5 mg by mouth daily - amoxicillin 500 mg by mouth twice a day for 4 more days - buspirone 5 mg by mouth three times a day - Tylenol 650 mg every 4 hours as needed for pain - lorazepam 0.5 mg by mouth three times a day as needed anxiety - oxycodone HCl 5 mg by mouth every 4 hours as needed pain and 10 mg every 4 hours as needed pain - 25 mg of promethazine as needed nausea or vomiting - sertraline 25 mg at bedtime - Imitrex 50 mg as needed for headaches - TPN at bedtime - trazodone 50 mg by mouth at bedtime
== END 2017-02-02 15:43 | disposition home health service (06) | DRG 949 ==
LOC: M ED 15:06 → M ED INP 19:46 → M MSPAV 21:30
PROVIDERS: ADMIT Hospitalist; ATTEND Internal Medicine
PROC: 02HV33Z Insertion of Infusion Device into Superior Vena Cava, Percutaneous Approach (ICD-10-PCS; principal; 2017-01-24)
DX: T85.868A Thrombosis due to other internal prosthetic devices, implants and grafts, initial encounter (principal); I82.611 Acute embolism and thrombosis of superficial veins of right upper extremity; I82.621 Acute embolism and thrombosis of deep veins of right upper extremity; D68.2 Hereditary deficiency of other clotting factors; M79.7 Fibromyalgia; Z87.891 Personal history of nicotine dependence; Z79.899 Other long term (current) drug therapy; Z98.84 Bariatric surgery status; E66.9 Obesity, unspecified; L93.0 Discoid lupus erythematosus

== ENCOUNTER → 2017-02-04 | Outpatient (REF) | payer OTHER ==
[~2017-02-04] MED LIST changes: +AMOX500C PO; +BUSP5TA PO; +COUM1TAB17 PO; +LORA-376; +LORA-376 PO; +OXYC-517 PO; +PROM25TA; +PROM25TA PO; +TYLE325T5 PO
[2017-02-04 12:23] LABS: INR 3.18
== END ==
LOC: M LAB REF 11:51
PROVIDERS: ATTEND Internal Medicine
DX: Z51.81 Encounter for therapeutic drug level monitoring (principal); Z79.01 Long term (current) use of anticoagulants

== ENCOUNTER → 2017-02-04 | Outpatient (REF) | payer OTHER ==
[2017-02-04 12:18] LABS: BASO % 0.2 % (0.0-1.0); EOS # 0.1 K/mm3 (0.0-0.50); EOS % 1.4 % (0.0-3.0); LARGE UNSTAINED CELL # 0.2 K/mm3 (0.0-0.4); LARGE UNSTAINED CELL % 1.8 % (0.0-4.0); LYMPH # 2.3 K/mm3 (1.5-4.5); LYMPH % 27.9 % (24.0-44.0); MEAN CORPUSCULAR HEMOGLOBIN 26.4 pg (27.0-33.0); MEAN CORPUSCULAR HGB CONC 31.7 g/dl (32.0-36.5); MEAN CORPUSCULAR VOLUME 83.2 fl (80.0-96.0); MONO # 0.4 K/mm3 (0.0-0.8); MONO % 4.6 % (0.0-5.0); NEUTROPHILS # 5.3 K/mm3 (1.8-7.7); NEUTROPHILS % 64.1 % (36.0-66.0); PLATELET COUNT, AUTOMATED 229 k/mm3 (150-450); RED CELL DISTRIBUTION WIDTH 14.2 % (11.5-14.5); WHITE BLOOD COUNT 8.2 K/mm3 (4.0-10.0)
[2017-02-04 13:04] LABS: ALBUMIN/GLOBULIN RATIO 0.77 (1.00-1.93); ALKALINE PHOSPHATASE 104 U/L (45-117); ALT/SGPT 16 U/L (12-78); ANION GAP 12 MEQ/L (8-16); AST/SGOT 42 U/L (15-37); BILIRUBIN,TOTAL 0.3 MG/DL (0.2-1.0); BLOOD UREA NITROGEN 21 MG/DL (7-18); CALCIUM LEVEL 8.3 MG/DL (8.5-10.1); CARBON DIOXIDE LEVEL 25 MEQ/L (21-32); CHLORIDE LEVEL 103 MEQ/L (98-107); CREATININE FOR GFR 0.49 MG/DL (0.55-1.02); GLOMERULAR FILTRATION RATE > 60.0 (>60); GLUCOSE, FASTING 114 MG/DL (70-105); MAGNESIUM LEVEL 2.2 MG/DL (1.8-2.4); PHOSPHORUS LEVEL 3.1 MG/DL (2.5-4.9); POTASSIUM SERUM 4.7 MEQ/L (3.5-5.1); SODIUM LEVEL 140 MEQ/L (136-145); TOTAL PROTEIN 6.9 GM/DL (6.4-8.2)
== END ==
LOC: M LAB REF 11:48
PROVIDERS: ATTEND Physician Assistant
DX: E64.0 Sequelae of protein-calorie malnutrition (principal)

== ENCOUNTER → 2017-02-07 | Outpatient (CLI) | payer OTHER ==
[2017-02-07 11:48] LABS: INR 3.64
== END ==
LOC: M LRY 10:06
PROVIDERS: ATTEND Emergency Medicine
DX: Z51.81 Encounter for therapeutic drug level monitoring (principal); Z79.01 Long term (current) use of anticoagulants; I82.621 Acute embolism and thrombosis of deep veins of right upper extremity

== ENCOUNTER → 2017-02-11 | Outpatient (REF) | payer OTHER ==
[2017-02-11 17:14] LABS: BASO % 0.2 % (0.0-1.0); EOS # 0.1 K/mm3 (0.0-0.50); EOS % 0.8 % (0.0-3.0); LARGE UNSTAINED CELL # 0.1 K/mm3 (0.0-0.4); LARGE UNSTAINED CELL % 1.3 % (0.0-4.0); LYMPH # 2.4 K/mm3 (1.5-4.5); LYMPH % 30.2 % (24.0-44.0); MEAN CORPUSCULAR HEMOGLOBIN 26.1 pg (27.0-33.0); MEAN CORPUSCULAR HGB CONC 31.5 g/dl (32.0-36.5); MONO # 0.4 K/mm3 (0.0-0.8); MONO % 4.3 % (0.0-5.0); NEUTROPHILS % 63.1 % (36.0-66.0); PLATELET COUNT, AUTOMATED 276 k/mm3 (150-450); RED CELL DISTRIBUTION WIDTH 14.6 % (11.5-14.5)
[2017-02-11 20:05] LABS: ALBUMIN 3.4 GM/DL (3.2-5.2); ALBUMIN/GLOBULIN RATIO 0.87 (1.00-1.93); ALKALINE PHOSPHATASE 103 U/L (45-117); ALT/SGPT 12 U/L (12-78); ANION GAP 10 MEQ/L (8-16); AST/SGOT 26 U/L (15-37); BILIRUBIN,TOTAL 0.3 MG/DL (0.2-1.0); BLOOD UREA NITROGEN 26 MG/DL (7-18); CALCIUM LEVEL 8.8 MG/DL (8.5-10.1); CARBON DIOXIDE LEVEL 25 MEQ/L (21-32); CHLORIDE LEVEL 103 MEQ/L (98-107); GLOMERULAR FILTRATION RATE > 60.0 (>60); GLUCOSE, FASTING 77 MG/DL (70-105); MAGNESIUM LEVEL 2.3 MG/DL (1.8-2.4); PHOSPHORUS LEVEL 4.5 MG/DL (2.5-4.9); SODIUM LEVEL 138 MEQ/L (136-145); TOTAL PROTEIN 7.3 GM/DL (6.4-8.2)
== END ==
LOC: M LAB REF 16:30
PROVIDERS: ATTEND Physician Assistant
DX: E64.0 Sequelae of protein-calorie malnutrition (principal)

== ENCOUNTER → 2017-02-14 | Outpatient (CLI) | payer OTHER ==
[~2017-02-14] MED LIST changes: +NYST10CR EXT
[2017-02-14 12:32] LABS: INR 3.89
== END ==
LOC: M LRY 08:57
PROVIDERS: ATTEND Emergency Medicine
DX: Z51.81 Encounter for therapeutic drug level monitoring (principal); Z79.01 Long term (current) use of anticoagulants; I82.621 Acute embolism and thrombosis of deep veins of right upper extremity

== ENCOUNTER → 2017-02-18 | Outpatient (REF) | payer OTHER ==
[~2017-02-18] MED LIST changes: -NYST10CR EXT
[2017-02-18 15:34] LABS: ALBUMIN 3.2 GM/DL (3.2-5.2); ALBUMIN/GLOBULIN RATIO 0.94 (1.00-1.93); ALKALINE PHOSPHATASE 88 U/L (45-117); ALT/SGPT 9 U/L (12-78); ANION GAP 7 MEQ/L (8-16); AST/SGOT 22 U/L (15-37); BILIRUBIN,TOTAL 0.2 MG/DL (0.2-1.0); BLOOD UREA NITROGEN 23 MG/DL (7-18); CALCIUM LEVEL 8.3 MG/DL (8.5-10.1); CARBON DIOXIDE LEVEL 27 MEQ/L (21-32); CHLORIDE LEVEL 103 MEQ/L (98-107); CREATININE FOR GFR 0.55 MG/DL (0.55-1.02); GLOMERULAR FILTRATION RATE > 60.0 (>60); GLUCOSE, FASTING 110 MG/DL (70-105); MAGNESIUM LEVEL 2.1 MG/DL (1.8-2.4); PHOSPHORUS LEVEL 3.5 MG/DL (2.5-4.9); POTASSIUM SERUM 3.9 MEQ/L (3.5-5.1); SODIUM LEVEL 137 MEQ/L (136-145); TOTAL PROTEIN 6.6 GM/DL (6.4-8.2)
[2017-02-18 15:35] LABS: BASO % 0.2 % (0.0-1.0); EOS % 1.1 % (0.0-3.0); LARGE UNSTAINED CELL # 0.1 K/mm3 (0.0-0.4); LARGE UNSTAINED CELL % 1.4 % (0.0-4.0); LYMPH # 1.5 K/mm3 (1.5-4.5); LYMPH % 33.6 % (24.0-44.0); MEAN CORPUSCULAR HGB CONC 32.6 g/dl (32.0-36.5); MEAN CORPUSCULAR VOLUME 82.7 fl (80.0-96.0); MONO # 0.2 K/mm3 (0.0-0.8); NEUTROPHILS # 2.6 K/mm3 (1.8-7.7); NEUTROPHILS % 58.6 % (36.0-66.0); PLATELET COUNT, AUTOMATED 194 k/mm3 (150-450); RED CELL DISTRIBUTION WIDTH 14.7 % (11.5-14.5); WHITE BLOOD COUNT 4.4 K/mm3 (4.0-10.0)
== END ==
LOC: M LAB REF 14:41
PROVIDERS: ATTEND Physician Assistant
DX: E64.0 Sequelae of protein-calorie malnutrition (principal)

== ENCOUNTER → 2017-02-21 | Outpatient (CLI) | payer OTHER ==
[~2017-02-21] MED LIST changes: +NYST10CR EXT
== END ==
LOC: M LRY 12:12
PROVIDERS: ATTEND Emergency Medicine
DX: Z51.81 Encounter for therapeutic drug level monitoring (principal); Z79.01 Long term (current) use of anticoagulants; I82.621 Acute embolism and thrombosis of deep veins of right upper extremity

== ENCOUNTER → 2017-02-22 | Outpatient (CLI) | payer OTHER ==
[2017-02-22 11:56] LABS: INR 3.46
== END ==
LOC: M LRY 09:09
PROVIDERS: ATTEND Emergency Medicine
DX: Z51.81 Encounter for therapeutic drug level monitoring (principal); Z79.01 Long term (current) use of anticoagulants; I82.621 Acute embolism and thrombosis of deep veins of right upper extremity

== ENCOUNTER 2017-02-23 11:31 | Emergency (ER) | payer OTHER ==
[~2017-02-23] VITALS: Ht 167.6 cm; Wt 94.8 kg
[~2017-02-23 11:31] MED LIST changes: -NYST10CR EXT
[2017-02-23 11:32] VITALS: BP 142/109
[2017-02-23] MEDS ORDERED: NYST10CR EXT (11:46)
[2017-02-23 12:31] LABS: INR 3.76
--- NOTE | 2017-02-23 13:05 | REP ---
LEFT UPPER EXTREMITY DOPPLER VENOUS ULTRASOUND: 02/23/2017. Clinical history: On Coumadin for right upper extremity DVT with PICC line placed in left arm last month in the basilic vein. Now with pain in the left upper arm. The deep venous system studied from the base of the neck to the antecubital fossa. Color flow and Doppler interrogation was utilized. The jugular and left subclavian veins are seen with color flow filling their lumen. There is respiratory variation and some augmentation suggested. Axillary view show the axillary vein, and a PICC line passing adjacent in basilic vein. There is no visible thrombus. The distal upper arm around the PICC line insertion and proximal cannot be evaluated because of bandaging on the arm obscuring the vessels beneath. That portion of basilic and axillary veins visible is without filling defect or thrombus. Both of the paired brachial veins are without thrombus for their course that is visible. The cephalic vein shows clot in its mid to distal portion, more proximally very slow blood flow was demonstrated. Impression: 1. There is superficial thrombophlebitis demonstrated in the mid to distal cephalic vein of the superficial venous system. The deep venous system does not show evidence of thrombus. PICC line is in the basilic vein of the superficial system. The paired brachial veins proximally show no thrombus. Their distal course in the upper arm is obscured by bandaging. No thrombus at the antecubital fossa. No DVT. Signed by Raymon Tijerina MD 02/23/2017 08:26 P
== END 2017-02-23 15:02 | disposition home or self-care (01) ==
LOC: M ED 13:20
DX: I80.8 Phlebitis and thrombophlebitis of other sites (principal); Z91.040 Latex allergy status; Z79.01 Long term (current) use of anticoagulants; Z79.899 Other long term (current) drug therapy; Z98.84 Bariatric surgery status; G44.009 Cluster headache syndrome, unspecified, not intractable; Z86.718 Personal history of other venous thrombosis and embolism; K58.9 Irritable bowel syndrome, unspecified; F41.9 Anxiety disorder, unspecified; F32.9 Major depressive disorder, single episode, unspecified

== ENCOUNTER → 2017-02-25 | Outpatient (REF) | payer OTHER ==
[~2017-02-25] MED LIST changes: +NYST10CR EXT
== END ==
LOC: M LAB REF 11:04
PROVIDERS: ATTEND Physician Assistant
DX: E64.0 Sequelae of protein-calorie malnutrition (principal)

== ENCOUNTER → 2017-03-08 | Outpatient (CLI) | payer OTHER ==
[2017-03-08 12:22] LABS: INR 2.28
== END ==
LOC: M LRY 10:19
PROVIDERS: ATTEND Emergency Medicine
DX: Z51.81 Encounter for therapeutic drug level monitoring (principal); Z79.01 Long term (current) use of anticoagulants; I82.621 Acute embolism and thrombosis of deep veins of right upper extremity

== ENCOUNTER → 2017-03-11 | Outpatient (REF) | payer OTHER ==
[2017-03-11 13:56] LABS: BASO % 0.2 % (0.0-1.0); EOS # 0.1 K/mm3 (0.0-0.50); EOS % 1.5 % (0.0-3.0); LARGE UNSTAINED CELL # 0.1 K/mm3 (0.0-0.4); LYMPH # 1.7 K/mm3 (1.5-4.5); LYMPH % 27.4 % (24.0-44.0); MEAN CORPUSCULAR HEMOGLOBIN 26.9 pg (27.0-33.0); MEAN CORPUSCULAR HGB CONC 32.6 g/dl (32.0-36.5); MEAN CORPUSCULAR VOLUME 82.6 fl (80.0-96.0); MONO # 0.3 K/mm3 (0.0-0.8); MONO % 4.9 % (0.0-5.0); PLATELET COUNT, AUTOMATED 207 k/mm3 (150-450); RED CELL DISTRIBUTION WIDTH 15.8 % (11.5-14.5); WHITE BLOOD COUNT 6.1 K/mm3 (4.0-10.0)
[2017-03-11 14:14] LABS: ALBUMIN 3.2 GM/DL (3.2-5.2); ALBUMIN/GLOBULIN RATIO 0.91 (1.00-1.93); ALKALINE PHOSPHATASE 86 U/L (45-117); ALT/SGPT 21 U/L (12-78); ANION GAP 7 MEQ/L (8-16); AST/SGOT 25 U/L (15-37); BILIRUBIN,TOTAL 0.2 MG/DL (0.2-1.0); BLOOD UREA NITROGEN 24 MG/DL (7-18); CALCIUM LEVEL 8.5 MG/DL (8.5-10.1); CARBON DIOXIDE LEVEL 27 MEQ/L (21-32); CHLORIDE LEVEL 105 MEQ/L (98-107); GLOMERULAR FILTRATION RATE > 60.0 (>60); GLUCOSE, FASTING 102 MG/DL (70-105); MAGNESIUM LEVEL 2.4 MG/DL (1.8-2.4); PHOSPHORUS LEVEL 3.6 MG/DL (2.5-4.9); POTASSIUM SERUM 4.3 MEQ/L (3.5-5.1); SODIUM LEVEL 139 MEQ/L (136-145); TOTAL PROTEIN 6.7 GM/DL (6.4-8.2)
== END ==
LOC: M LAB REF 13:28
PROVIDERS: ATTEND Physician Assistant
DX: E64.0 Sequelae of protein-calorie malnutrition (principal)

== ENCOUNTER → 2017-03-15 | Outpatient (CLI) | payer OTHER ==
[2017-03-15 19:15] LABS: INR 3.38
== END ==
LOC: M LRY 10:50
PROVIDERS: ATTEND Emergency Medicine
DX: Z51.81 Encounter for therapeutic drug level monitoring (principal); Z79.01 Long term (current) use of anticoagulants; I82.621 Acute embolism and thrombosis of deep veins of right upper extremity

== ENCOUNTER → 2017-03-28 | Outpatient (CLI) | payer OTHER ==
[2017-03-28 22:32] LABS: INR 5.68
== END ==
LOC: M LRY 16:04
PROVIDERS: ATTEND Emergency Medicine
DX: Z51.81 Encounter for therapeutic drug level monitoring (principal); Z79.01 Long term (current) use of anticoagulants; I82.621 Acute embolism and thrombosis of deep veins of right upper extremity

== ENCOUNTER → 2017-04-03 | Outpatient (CLI) | payer OTHER ==
[2017-04-03 13:06] LABS: INR 7.82
== END ==
LOC: M LRY 09:32
PROVIDERS: ATTEND Emergency Medicine
DX: I82.621 Acute embolism and thrombosis of deep veins of right upper extremity (principal)

== ENCOUNTER → 2017-04-05 | Outpatient (CLI) | payer OTHER ==
[2017-04-05 12:05] LABS: INR 3.76
== END ==
LOC: M LRY 09:02
PROVIDERS: ATTEND Emergency Medicine
DX: I82.621 Acute embolism and thrombosis of deep veins of right upper extremity (principal)

== ENCOUNTER → 2017-04-08 | Outpatient (CLI) | payer OTHER ==
[2017-04-08 19:47] LABS: INR 3.1
== END ==
LOC: M LRY 15:56
DX: I82.621 Acute embolism and thrombosis of deep veins of right upper extremity (principal)

== ENCOUNTER → 2017-04-11 | Outpatient (CLI) | payer OTHER ==
[2017-04-11 11:27] LABS: INR 3.93
== END ==
LOC: M LRY 08:08
PROVIDERS: ATTEND Emergency Medicine
DX: Z51.81 Encounter for therapeutic drug level monitoring (principal); Z79.01 Long term (current) use of anticoagulants; I82.621 Acute embolism and thrombosis of deep veins of right upper extremity

== ENCOUNTER → 2017-04-16 | Outpatient (CLI) | payer OTHER ==
[2017-04-16 13:33] LABS: INR 3.08
== END ==
LOC: M LRY 11:14
PROVIDERS: ATTEND Emergency Medicine
DX: Z51.81 Encounter for therapeutic drug level monitoring (principal); Z79.01 Long term (current) use of anticoagulants; I82.621 Acute embolism and thrombosis of deep veins of right upper extremity

== ENCOUNTER → 2017-04-19 | Outpatient (CLI) | payer OTHER ==
[2017-04-19 17:15] LABS: INR 2.68
== END ==
LOC: M LRY 13:07
PROVIDERS: ATTEND Emergency Medicine
DX: Z51.81 Encounter for therapeutic drug level monitoring (principal); Z79.01 Long term (current) use of anticoagulants; I82.621 Acute embolism and thrombosis of deep veins of right upper extremity

== ENCOUNTER → 2017-04-24 | Outpatient (CLI) | payer OTHER ==
[2017-04-24 11:14] LABS: INR 3.61
== END ==
LOC: M LRY 09:46
PROVIDERS: ATTEND Emergency Medicine
DX: I82.621 Acute embolism and thrombosis of deep veins of right upper extremity (principal)

== ENCOUNTER → 2017-05-01 | Outpatient (CLI) | payer OTHER ==
[2017-05-01 12:54] LABS: INR 2.88
== END ==
LOC: M LRY 09:19
PROVIDERS: ATTEND Emergency Medicine
DX: Z51.81 Encounter for therapeutic drug level monitoring (principal); Z79.01 Long term (current) use of anticoagulants; I82.621 Acute embolism and thrombosis of deep veins of right upper extremity

== ENCOUNTER → 2017-05-07 | Outpatient (CLI) | payer OTHER ==
[~2017-05-07] MED LIST changes: +COUM2TAB10 PO; +PERC5TAB6 PO; +PRED20TA PO; +VALI5TAB PO
[2017-05-07 12:51] LABS: INR 2.83
== END ==
LOC: M LRY 08:20
PROVIDERS: ATTEND Emergency Medicine
DX: Z51.81 Encounter for therapeutic drug level monitoring (principal); Z79.01 Long term (current) use of anticoagulants; I82.621 Acute embolism and thrombosis of deep veins of right upper extremity

== ENCOUNTER 2017-05-13 01:50 | Emergency (ER) | payer OTHER ==
[~2017-05-13] VITALS: Ht 167.6 cm; Wt 85.9 kg
[~2017-05-13 01:50] MED LIST changes: -AMIT24CA5 PO; +AMIT24CA7 PO; -COUM2TAB10 PO; -LORA-376; -LORA-376 PO; +LORA0.5T11; +LORA0.5T11 PO; -PERC5TAB6 PO; -PRED20TA PO; +TRAZ50TA11 PO; -TRAZ50TA4 PO; -VALI5TAB PO
[2017-05-13] MEDS ORDERED: COUM2TAB22 PO (02:06)
[2017-05-13 03:40] LABS: MEAN CORPUSCULAR HEMOGLOBIN 28.3 pg (27.0-33.0); MEAN CORPUSCULAR HGB CONC 33.1 g/dl (32.0-36.5); MEAN CORPUSCULAR VOLUME 85.3 fl (80.0-96.0); RED CELL DISTRIBUTION WIDTH 14.4 % (11.5-14.5); WHITE BLOOD COUNT 7.8 K/mm3 (4.0-10.0)
[2017-05-13 03:49] LABS: INR 2.34
[2017-05-13 04:02] LABS: ANION GAP 8 MEQ/L (8-16); BLOOD UREA NITROGEN 13 MG/DL (7-18); CALCIUM LEVEL 8.7 MG/DL (8.5-10.1); CARBON DIOXIDE LEVEL 24 MEQ/L (21-32); CHLORIDE LEVEL 110 MEQ/L (98-107); CREATININE FOR GFR 0.73 MG/DL (0.55-1.02); GLOMERULAR FILTRATION RATE > 60.0 (>60); GLUCOSE, FASTING 87 MG/DL (70-105); POTASSIUM SERUM 3.2 MEQ/L (3.5-5.1); SODIUM LEVEL 142 MEQ/L (136-145)
[2017-05-13] MEDS ORDERED: ONDANSETRON 4MG/2ML VIAL (J2405) IV ONE (05:00)
[2017-05-13] MEDS ORDERED: ISOVUE-370 76% 100ML VIAL (Q9967) As Ordered ONE (05:09)
[2017-05-13] MEDS: MORPHINE 4 MG/ML 1ML SYRINGE IV PRN ×2 (05:10→06:19)
--- NOTE | 2017-05-13 06:00 | REPUSA ---
CLINICAL HISTORY: Dyspnea, exclude PE. TECHNIQUE: Multiple incremental axial, coronal and oblique images are obtained from the thoracic inle t to the upper abdomen. Intravenous contrast material was administered as per pulmonary embolism prot ocol. COMMENTS: Atelectatic changes in the lower lobes on the right side. There is excellent opacification of pulmonary arterial system without evidence for pulmonary embolism . Aorta is of normal caliber without evidence for dissection or aneurysm. There is no evidence of pleural or parenchymal mass. There are no pleural effusions. There is no evid ence of hilar or mediastinal lymphadenopathy. The heart and great vessels are within normal limits. Images of the upper abdomen demonstrate no evidence of adrenal mass. The bony structures are free of lytic or blastic lesions. IMPRESSION: No evidence for pulmonary embolism. Bilateral atelectatic changes in the lower lobes. Thank you for your kind referral of this patient.
[2017-05-13] MEDS ORDERED: methylPREDNISolone INJ 125 MG/2 ML VIAL (J2930) IV ONE (06:15)
[2017-05-13] MEDS ORDERED: PERC5TAB12 PO (07:06)
[2017-05-13] MEDS ORDERED: PRED20TA PO (07:06)
[2017-05-13] MEDS ORDERED: VALI5TAB PO (07:06)
[2017-05-13 07:24] VITALS: BP 119/81
--- NOTE | 2017-05-13 20:00 | ECGEPIP ---
Stationary ECG Study [facility] - ED Test Date: 2017-05-13 Pat Name: NEHAL SOARES Department: Room: - Gender: F [employer]ake [employer]: estrellita : 1980 Requested By: CEE Lang Order Number: [id number] Reading MD: Jeanine Serrano Measurements Intervals [place] Rate: 76 P: 30 WV: 145 QRS: 21 QRSD: 98 T: -4 QT: 412 QTc: 466 Interpretive Statements SINUS RHYTHM NSTTW ABNORMALITY SIMILAR 01/31/17 Electronically Signed On 05-13-2017 20:00:05 EDT by Jeanine Serrano
== END 2017-05-13 07:26 | disposition home or self-care (01) ==
LOC: M ED 03:38
DX: S39.012A Strain of muscle, fascia and tendon of lower back, initial encounter (principal); S20.222A Contusion of left back wall of thorax, initial encounter; X58.XXXA Exposure to other specified factors, initial encounter; Y92.9 Unspecified place or not applicable; Y99.9 Unspecified external cause status; Y93.9 Activity, unspecified; Z86.718 Personal history of other venous thrombosis and embolism; Z91.040 Latex allergy status; Z88.6 Allergy status to analgesic agent; Z79.01 Long term (current) use of anticoagulants
CPT/HCPCS: 36415; 71275; 80048; 82550; 82553; 85027; 85610; 85730; 93005; 99284; J2405; J2930; J3360; Q9967

== ENCOUNTER 2017-05-26 18:34 | Emergency (ER) | payer OTHER ==
[~2017-05-26] VITALS: Ht 167.6 cm; Wt 85.9 kg
[~2017-05-26 18:34] MED LIST changes: +COUM2TAB22 PO; +PERC5TAB12 PO; +PRED20TA PO; +VALI5TAB PO
[2017-05-26] MEDS ORDERED: ADACEL/BOOSTRIX VACCINE (DIPHTH/PERTUSS/ACELL/TETANUS)0.5ML SYR (90715) IM ONE (19:45)
[2017-05-26] MEDS ORDERED: NORCO, ANEXSIA 5/325MG TABLET (HYDROcodone/ACETAMINOPHEN) PO ONE (19:45)
[2017-05-26] MEDS ORDERED: MORPHINE 4 MG/ML 1ML SYRINGE IM ONE (20:00)
[2017-05-26] MEDS ORDERED: AUGMENTIN 875 MG TAB PO ONE (20:00)
[2017-05-26 20:29] VITALS: BP 119/68
[2017-05-26] MEDS ORDERED: PERC5TAB12 PO (20:56)
[2017-05-26] MEDS ORDERED: AUGM875T28 PO (20:56)
[2017-05-26] MEDS ORDERED: PERCOCET 5MG/325MG TAB PO ONE (21:45)
== END 2017-05-26 21:45 | disposition home or self-care (01) ==
LOC: M ED 18:34
DX: S01.551A Open bite of lip, initial encounter (principal); W54.0XXA Bitten by dog, initial encounter; Y92.099 Unspecified place in other non-institutional residence as the place of occurrence of the external cause; Y93.9 Activity, unspecified; Y99.9 Unspecified external cause status; Z79.01 Long term (current) use of anticoagulants; Z79.899 Other long term (current) drug therapy; Z91.040 Latex allergy status; Z88.6 Allergy status to analgesic agent

== ENCOUNTER → 2017-05-27 | Outpatient (CLI) | payer OTHER ==
[~2017-05-27] MED LIST changes: +AUGM875T28 PO
[2017-05-27 17:59] LABS: INR 3.83
== END ==
LOC: M LRY 14:44
PROVIDERS: ATTEND Emergency Medicine
DX: Z51.81 Encounter for therapeutic drug level monitoring (principal); Z79.01 Long term (current) use of anticoagulants; I82.621 Acute embolism and thrombosis of deep veins of right upper extremity

== ENCOUNTER → 2017-06-07 | Outpatient (CLI) | payer OTHER | LOC: M LRY 11:39 | PROVIDERS: ATTEND Emergency Medicine | DX: Z51.81 Encounter for therapeutic drug level monitoring (principal); Z79.01 Long term (current) use of anticoagulants; I82.621 Acute embolism and thrombosis of deep veins of right upper extremity ==

== ENCOUNTER → 2017-06-11 | Outpatient (CLI) | payer OTHER ==
[2017-06-11 16:55] LABS: INR 1.66
== END ==
LOC: M LRY 14:40
PROVIDERS: ATTEND Emergency Medicine
DX: Z51.81 Encounter for therapeutic drug level monitoring (principal); I82.621 Acute embolism and thrombosis of deep veins of right upper extremity

== ENCOUNTER → 2017-07-05 | Outpatient (CLI) | payer OTHER ==
[2017-07-05 11:30] LABS: INR 2.68
== END ==
LOC: M LRY 10:10
PROVIDERS: ATTEND Emergency Medicine
DX: Z51.81 Encounter for therapeutic drug level monitoring (principal); Z79.01 Long term (current) use of anticoagulants; I82.621 Acute embolism and thrombosis of deep veins of right upper extremity